=== PATIENT | female | born 1985 | race Caucasian/White ===

== ENCOUNTER 2024-10-03 13:28 | Outpatient (AMB) | payer OTHER, SELFPAY ==
--- NOTE | 2024-10-03 13:36 | MHC.PC.OV ---
Vital Signs 10/03/24 13:37 Height 5 ft 8.5 in Weight 152 lb 2 oz BMI 22.8 BP 120/76 Blood Pressure Location Lt brachial Position Sitting Pulse 68 Pulse Source Pulse Oximeter Temp 97.3 F Temp Source Temporal Artery Scan Pulse Oximetry (%) 99 Oxygen Delivery Method Room Air Intake Visit Reasons: establish care Intake Note: Patient is a new patient here to establish care for ADHD, Anxiety, Seasonal allergies. Transferring care from Dr Viviane De Los Santos. Medical records have been requested and have not received. Requesting for referral to [facility], Allergies and podiatry (due to ingrown toe nail). Also requesting for full blood work order. Sunglass Clip Attacher Required: No Turbogenerator Operator: Not Required per policy Accompanied by: Self / Same As Patient Allergies Seasonal Allergies Allergy (Intermediate, Verified 10/03/24 13:43) congestion Medication List - Last Reconciled 10/03/24 by Halle Grimaldo PA-C No Known Home Meds Tobacco use date assessed: 10/03/24 Dental Screening Dental Screen Date: 10/03/24 Did you have a dental visit in the last 12 months?: Yes Did you have a dental problem in the last 6 months where you did not have access to dental care?: No Was dental information given to patient?: Patient has dentist HPI establish care HPI Details 38-year-old female coming to the office with the 1st time. Presenting with symptoms of seasonal allergic rhinitis. She reports experiencing worsening allergy symptoms due to high pollen counts, with previous medications causing nausea. The patient is also experiencing fatigue. Concurrently, she expresses concern about anxiety and ADHD, although she is hesitant to restart previously used stimulant medications that caused gastrointestinal distress and lethargy post-use. The patient notes previous surgery for ingrown toenails and seeks evaluation due to recent mild discomfort. She has a history of abnormal moles and a family history of cancer, prompting ongoing dermatological surveillance. colonoscopy last year for hemorrhoids and did have polyps and repeat in 5 years. She has a appointment coming up for Pap smears with manager in training [facility] Surgical History (Updated 10/03/24 @ 13:46 by HELLEN Antonio) No pertinent past surgical history Family History (Updated 10/03/24 @ 14:12 by Halle Grimaldo PA-C) Paternal Grandfather Cancer Other Mental health disorder Substance use disorder Social History (Updated 10/03/24 @ 13:47 by HELLEN Antonio) Housing: House Alcohol intake: current Alcohol intake frequency: a few times a month Patient Tobacco Use Status: Never used Tobacco e-Cigarette/Vaping Use: Never Used Second Hand Smoke Exposure: No service: No 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 1. Little interest or pleasure in doing things: not at all 2. Feeling down, depressed, or hopeless: not at all 3. Trouble falling or staying asleep, or sleeping too much: several days 4. Feeling tired or having little energy: nearly every day 5. Poor appetite or overeating: several days 6. Feeling bad about yourself - or that you are a failure or have let yourself or your family down: not at all 7. Trouble concentrating on things, such as reading the newspaper or watching television: more than half the days 8. Moving or speaking so slowly that other people could have noticed. Or the opposite - being so fidgety or restless that you have been moving around a lot more than usual: not at all 9. Thoughts that you would be better off or of hurting yourself in some way: not at all Total score: 7 Depression Screening Interpretation: Positive Depression Screening Follow-up: Declines treatment Depression Screening Done: Yes Source: Developed by Drs. Dennis Cotton, Laura Kang, Elijah Cox and colleagues, with an educational zunilda from [employer]. Thrive Questionnaire Date Thrive assessed: 10/03/24 I am a: Patient What is your living situation today?: I have a steady place to live Within the past 12 months, did the food you bought not last and you didn't have the money to get more?: Never true Within the past 12 months, did you worry whether your food would run out before you got money to buy more?: Never true Do you have trouble paying for medicines?: No Do you have trouble getting transportation to medical appointments?: No Do you have trouble paying your heating and electricity bill?: No Do you have trouble taking care of your child, family member or friend?: No Do you have trouble with day-to-day activities such as bathing, preparing meals, shopping, managing finances, etc.?: No Are you currently unemployed and looking for a job?: No Are you interested in more education?: No Please select the resources that you would like help with: None Currently or been in a relationship where the following occur: No concerns reported THRIVE Score: 0 AUDIT C Alcohol Use Questionnaire (AUDIT-C) 1. How often do you have a drink containing alcohol?: 2-3 times a week 2. How many drinks containing alcohol do you have on a typical day when you are drinking?: 1 or 2 3. How often do you have six or more drinks on one occasion?: Never Total Score: 3 MADISON-7 AMB Questionnaire MADISON-7 Date MADISON - 7 assessed: 10/03/24 Feeling nervous, anxious, or on edge: 2 = More than half the days Not being able to stop or control worryin = Several days Worrying too much about different things: 1 = Several days Trouble relaxin = Several days Being so restless that it is hard to sit still: 0 = Not at all Becoming easily annoyed or irritable: 1 = Several days Feeling afraid as if something awful might happen: 0 = Not at all Total MADISON-7 score (0-4 normal; 5-9 mild; 10-14 moderate; 15-21 severe): 6 Source: Developed by Drs. Dennis Cotton, Laura Kang, Elijah Cox and colleagues, with an educational zunilda from [employer]. MADISON-7 Assessment Billing MADISON-7 Assessment Tool: MADISON-7 Assessment 46524 Review of Systems Const Denies body aches, Denies chills, Denies fever(s), Denies headache(s) and Denies poor appetite Eyes Reports no additional complaints ENT Denies dysphagia, Denies dizziness, Denies headache(s) and Denies odynophagia Card Denies chest pain, Denies syncope, Denies edema, Denies irregular heart rhythm, Denies lightheadedness and Denies dyspnea Resp Denies cough and Denies dyspnea GI Denies abdominal pain, Denies constipation, Denies dysphagia, Denies diarrhea, Denies nausea, Denies odynophagia and Denies vomiting Reports no additional complaints Musc Reports no additional complaints and Denies abnormal gait Skin/Breast Reports system reviewed and no additional complaints, except as documented Neuro Denies abnormal gait, Denies dizziness, Denies syncope and Denies headache(s) Psych Reports no additional complaints Physical exam (Primary Care) Vital Signs: Last Vital Signs Temp 97.3 F 10/03/24 13:37 Pulse 68 10/03/24 13:37 BP 120/76 10/03/24 13:37 Pulse Ox 99 10/03/24 13:37 Oxygen Delivery Method Room Air 10/03/24 13:37 BMI result Body Mass Index 22.8 Tobacco/Smoking Status: Tobacco use Status Tobacco use date assessed 10/03/24 10/03/24 13:42 Patient Tobacco Use Status Never used Tobacco 10/03/24 13:47 e-Cigarette/Vaping Use Never Used 10/03/24 13:47 PHQ-9: PHQ-9 Score PHQ-9: Total score 7 10/03/24 14:01 Depression Screening Interpretation: Positive Depression Screening Follow-up: Declines treatment Thrive Assessment: Date of Thrive Assessment Date Thrive assessed 10/03/24 10/03/24 13:42 Currently or been in a relationship where the following occur: No concerns reported Const General: cooperative, healthy appearing, comfortable and no acute distress Orientation/consciousness: patient oriented x3 HENMT Head: Yes normocephalic Ears: hearing grossly normal bilaterally General nose exam: Normal external nose present Eyes General: appearance normal, both eyes and all related structures Conjunctivae: conjunctivae normal Neck Neck: Yes full ROM and Yes no lymphadenopathy Resp Effort & Inspection: normal respiratory effort Auscultation: clear to auscultation bilaterally, no crackles, no rales, no rhonchi and no wheezes Cardio Rate: regular rate Rhythm: regular rhythm Skin Other: Nailbed deformity left great toe General skin exam: no rashes or lesions noted Neuro General: patient oriented x3 Gait exam (Neuro): Normal gait present Extrem General: Yes normal to inspection, Yes full ROM and No edema Psych Affect: normal affect Attitude: cooperative Insight: Good insight present (Psych) Judgement: Good judgement present (Psych) Coding Level of Care Code New Pt Level 4 (54490) Diagnoses Anxiety F41.9 ADHD F90.9 Seasonal allergies J30.2 Fatigue R53.83 Ingrown toenail L60.0 Atypical nevi D22.9 Additional Codes MADISON-7 Assessment Billing - MADISON-7 Assessment Tool: MADISON-7 Assessment 94094 ([id number]) Assessment & Plan Assessment & Plan (1) Anxiety: Code(s): F41.9 - Anxiety disorder, unspecified Category: Medical Plan: Patient is declining medical management at this time. She is seeing a family counselor with her and is declining personal counseling at this time. Advised patient to reach out if this should change. (2) ADHD: Code(s): F90.9 - Attention-deficit hyperactivity disorder, unspecified type Category: Medical Plan: Previously having been diagnosed with ADHD and treated with stimulant medication. She did not like the side effects of the stimulant medication is interested in trying nonstimulant option. Plan to start on Strattera at 40 mg and follow up in 2 months. Referral was also placed to outpatient psych clinic today. (3) Seasonal allergies: Code(s): J30.2 - Other seasonal allergic rhinitis Category: Medical Plan: Recommend the use of Claritin, saline nasal rinse and Flonase. (4) Fatigue: Code(s): R53.83 - Other fatigue Category: Medical Plan: Patient having worsening fatigue over the last several years since the of her children. Plan to obtain blood work to look for underlying cause. Denying any issues with sleeping or waking up short of breath or coughing. (5) Ingrown toenail: Code(s): L60.0 - Ingrowing nail Category: Medical Plan: Patient having history of ingrown toenail left great toe. Recommended podiatry referral and referral was placed today (6) Atypical nevi: Code(s): D22.9 - Melanocytic nevi, unspecified Category: Medical Plan: Patient having multiple atypical nevi previously being followed by Dermatology and in need of new provider. Referral was placed to Dermatology today. Plan I recommended [id number] Claritin for managing the patient's seasonal allergic rhinitis, favoring it over Zyrtec due to a history of nausea. For her anxiety and ADHD symptoms, I suggested atomoxetine (Strattera) as a non-stimulant alternative to avoid previous adverse effects from stimulants. I made referrals to dermatology for skin surveillance and to podiatry for her toenail concerns. I advised comprehensive blood work to address fatigue concerns, evaluating potential hormonal elements and general health. The patient is to follow up in two months for a comprehensive review if labs reveal specific concerns. This note was constructed using voice recognition software. While every effort has been made to ensure accuracy and rigging foreman, still areas may have been included sometimes these areas may affect the content or meeting of the given symptoms. Total time spent caring for the patient today was 30 minutes. This includes time spent before the visit reviewing the chart, time spent during the visit, and time spent after the visit and documentation. Patient was informed and verbally consented to the use of an ambient scribe for clinic note documentation during this visit. Orders: Orders Complete Blood Count Auto Diff Today Z00.00 - Encounter for general adult medical examination without abnormal findings Comprehensive Met. Panel Today Z00.00 - Encounter for general adult medical examination without abnormal findings Vitamin B12 and Folate Today Z00.00 - Encounter for general adult medical examination without abnormal findings Erythrocyte Sedimentation Rate Today R53.83 - Other fatigue Lipid Panel Today Z13.220 - Encounter for screening for lipoid disorders TSH reflex Free T4 Today Z00.00 - Encounter for general adult medical examination without abnormal findings Free T4 (Free Thyroxine) Today Z00.00 - Encounter for general adult medical examination without abnormal findings Vitamin D 25-OH Total Today Z00.00 - Encounter for general adult medical examination without abnormal findings WAQAS Reflex Titer and Pattern Today R53.83 - Other fatigue C Reactive Protein Today R53.83 - Other fatigue Referrals Podiatry Referral L60.0 - Ingrowing nail Dermatology Referral D22.9 - Melanocytic nevi, unspecified Psychiatry Outpatient Consultation Service F41.9 - Anxiety disorder, unspecified, F90.9 - Attention-deficit hyperactivity disorder, unspecified type Optometry Referral Z00.00 - Encounter for general adult medical examination without abnormal findings Medications: New atomoxetine 40 mg PO DAILY 30 caps 1RF
[2024-10-03 13:37] VITALS: BP 120/76; PULSE 68; TEMP 36.3; O2SAT 99; BMI 22.8
--- OUTSIDE RECORDS SUMMARY | 2024-10-03 14:44 | XMS_ITS | Data Portability ---
Author Organization [place] - [facility], [place] - [facility] - IP Address [address] [place] [address] Assessment Encounter Date Assessment Date Assessment LastModified by Organization Details LastModified Time 10/11/2023 10/11/2023 Alyssa is a 37-year-old female with intermittent painful bowel movements, throbbing spasm of anus, and rectal bleeding. -I suspect she has had intermittent anal fissures and possibly a component of pelvic floor dysfunction causing anal spasm -Sending prescription for topical nifedipine/lidoc vero compounded ointment for anal spasm and intermittent anal fissures. -Recommend powdered fiber bulking with Metamucil and as needed MiraLAX to provide better bowel function -Recommend colonoscopy for rectal bleeding. Etiology of colon polyps and CRC discussed using diagrams. Literature provided. Medical decision made today to proceed with colonoscopy. Risks of colonoscopy including perforation, bleeding, missed lesions, incomplete removal of lesions, inadequate bowel prep, and infection were discussed with the patient. Alternatives were also discussed with the patient. Procedure discussed in detail. Diagrams drawn. Literature provided. Bowel preparation instructions given. Bowel preparation medications sent to pharmacy. -Return to office in 6 weeks for reevaluation of symptoms Shaheed Abdullahi MD Board Certified Colon & Rectal Surgeon [facility] - [facility] T: [phone] F: [phone] [employer] Portions of the record may have been created with voice recognition software. Occasional wrong word or gadzv-q-fezl substitutions may have occurred due to the inherent limitations of voice recognition software. Read the chart carefully and recognize, using context, where substitutions have occurred. [email or web address] Not available 10/11/2023 16:00:46 Plan of Treatment Reminders Order Date Submit Date Provider Last Modified By Organization Details Last Modified Time Details Appointments None recorded. Lab None recorded. Referral None recorded. Procedures None recorded. Surgeries colonoscopy (SURG) 2023 [facility] Records Department, [address], [place], [address], 08:14:44 Imaging None recorded. Medication Orders Nifedipine 0.4% Lidocaine 5 % 2023 [facility], [address] [place] [address], [place], [address], 16:01:53 Miralax 17 gram/dose oral powder 2023 [facility] #30 (453) Olimpia, [address], [place], [address], 4 16:01:52 Dulcolax (bisacodyl) 5 mg tablet,georgette yed release 2023 [facility] #30 (080) Olimpia, [address], [place], [address], 4 16:01:52 Patient TargetsNo targets recorded. Patient InstructionsNo instructions recorded. Reason for Referral None Reported. Results Created Date Observation Date Name Description Value Unit Range Abnormal Flag Note LastModifiedBy Organization Detail LastModifiedTime Result Notes None recorded. Procedures Surgical History Date Name Laterality Status Provider Name and Address Organization Details Recorded Time 10/15/19 24 COLONOSCOPY (SURG) completed Leti Kidd [facility] 10/21/2023 11:08:25 10/11/19 24 Anoscopy completed Shaheed Abdullahi MD [address] [facility],[address], [address], [facility] 10/11/2023 15:40:18 Imaging Results None recorded. Procedure Notes None recorded. Medical Equipment None Reported. Medications Name Sig Start Date Stop Date Status Note LastModified by Organization Details LastModified Time Nifedipine 0.4% Lidocaine 5 % Apply to anal canal 2-3 times per day 2023 active Not Available Not Available Not Avai lable cephalexin 250 mg capsule TAKE 1 CAPSULE BY MOUTH THREE TIMES DAILY FOR 5 DAYS 10/10 completed Not Available Not Available Not Available Anucort-HC 25 mg suppository active Not Available Not Available Not Available penicillin V potassium 500 mg tablet TAKE ONE (1) TABLET BY MOUTH 2 TIMES PER DAY FOR 10 DAYS. 10/10 completed Not Available Not Available Not Available valacyclovi r 500 mg tablet TAKE 1 TABLET BY MOUTH TWICE DAILY UNTIL DELIVERY. active Not Available Not Available No t Available lidocaine-p rilocaine 2.5 %-2.5 % topical cream active Not Available Not Available Not Available amoxicillin 875 mg tablet TAKE 1 TABLET BY MOUTH EVERY 12 HOURS FOR 10 DAYS 10/10 completed Not Available Not Available Not Available mupirocin 2 % topical ointment APPLY TOPICALLY TO THE AFFECTED AREA THREE TIMES DAILY FOR 10 DAYS active Not Available Not Available No t Available clobetasol 0.05 % topical ointment APPLY A THIN LAYER TO THE AFFECTED AREA(S) BY TOPICAL ROUTE 2 TIMES PER WEEK. active Not Available Not Available No t Available polyethylen e glycol 3350 17 gram/dose oral powder MIX ENTIRE BOTTLE INTO 64 OUNCES OF CLEAR LIQUIDS. DRINK THE EVENING BEFORE COLONOSCO PY DIRECTED. active Not Available Not Available No t Available ondansetron 4 mg disintegrat ing tablet 10/10 completed Not Available Not Available Not Available Dulcolax (bisacodyl) 5 mg tablet,georgette yed release Take 4 tablets by oral route as directed. 2023 active Not Available Not Available Not Avai lable escitalopra m 10 mg tablet TAKE ONE (1) TABLET BY MOUTH EVERY DAY. active Not Available Not Available No t Available Vitals Date Recorded Body height Body mass index (BMI) Body weight Heart rate Systolic blood pressure Diastolic blood pressure Provider Name and Address Organization Details Last Updated DateTime 4 175.26 cm 22.2 kg/m2 49586.8 6 g 74 /min 132 mm[Hg] 75 mm[Hg] Leti Kidd [facility] 4 15:18:25 Social History None recorded. Functional Status None recorded. Mental Status None recorded. Family History Nothing Reported. Medical History No medical history recorded. Gynecological HistoryNo gynecological history recorded. Obstetrics History GPAL:G 0 P 0 0 0 0 Past Encounters Encounter ID Performer Location Encounter Start Date Encounter Closed Date Diagnosis/Indication Diagnosis SNOMED-CT Code Diagnosis ICD10 Code Diagnosis Note [id number] Shaheed Abdullahi MD [facility] [address] [place] [address] 10/11/2023 14:51:42 10/11/2023 16:03:45 Rectal hemorrhage 08317071 K62.5 Painful spasm of anus 62 359408 K59.4 Health Concerns Section Related Observation LastModified by Organization Detai ls LastModified Time None Recorded Concern Status LastModified by Organization Details LastModified Time None Recorded Advance Directives Directive None Recorded Payers Encounter Date Sequence Insurance Name Policy Number Policy Johnson Covered Member ID Johnson Member ID Guarantor Name 10/11/2023 1 [place] [id number] Christopher Gibbs [id number] Alyssa Buddy Gibbs Notes Date Note Type Note Provider Name and Address Organization Details Recorded Time 10/11/2023 text/html Alyssa is a 37-year-old female being seen in self-referral for hemorrhoids.. She reports hemorrhoidal symptoms for 7 years since the delivery of her first child. She had significant hemorrhoids at the time of and delivery and again with her second child. She reports painful bowel movements when constipated with associated rectal bleeding. She drinks lots of coffee now so her bowel movements are semiformed and much less painful. Currently her most frustrating symptom is a throbbing pain that wakes her from sleep in the anus causing her to sit on the toilet to relieve the pressure . Never had a colonoscopy. No family history of colorectal cancer or colon polyps. Shaheed Abdullahi MD [address] [facility],[place] [address], [place], [address], [facility] 10/11/2023 16:02:14 OBGyn Episode No OBEpisode recorded.
== END 2024-10-03 14:22 | disposition home or self-care (01) ==
LOC: HO.HMCH 13:29
DX: F41.9 Anxiety disorder, unspecified (principal); F90.9 Attention-deficit hyperactivity disorder, unspecified type; J30.2 Other seasonal allergic rhinitis; R53.83 Other fatigue; L60.0 Ingrowing nail; D22.9 Melanocytic nevi, unspecified

== ENCOUNTER → 2024-10-03 13:28 | Outpatient (BNVA) | payer OTHER, SELFPAY | DX: J30.2 Other seasonal allergic rhinitis (principal); F41.9 Anxiety disorder, unspecified; F90.9 Attention-deficit hyperactivity disorder, unspecified type; R53.83 Other fatigue; L60.0 Ingrowing nail; D22.9 Melanocytic nevi, unspecified | CPT/HCPCS: 96127; 99202 ==

== ENCOUNTER 2024-10-17 08:52 | Outpatient (REF) | payer OTHER, SELFPAY ==
[2024-10-17 09:13] LABS: MANUAL DIFF FLAG NO
--- OUTSIDE RECORDS SUMMARY | 2024-10-17 09:15 | XMS_ITS | Continuity of Care Document ---
Author Organization [facility] Address [address] [place] [address] Phone Care Team Providers Care Bailing Machine Operator Name Role Phone Unavailable Unavailable Unavailable Advance Directives Directive Yes / No Effective Date File Name No Information Encounters Encounter Description Practice Location Reason(s) For Visit Diagnoses Date Provider Providers Copied on Encounter [facility], [address], [place], [place], [id number], [place] tel:[phone] [facility] No Information Jul-0 201 9 No Information Referring Provider: EDDIE FRANK, [address], [place], [address]. tel:[phone] Family History Family Member Type Diagnosis Age At Onset No Information Payers Payer name Insurance type Covered constitution party ID Authoriza titiffany(s) [facility] PPO [id number] Social History Type Description Quantity Date Captured Comments Sex Female Smoking Status No Information Chief Complaint And Reason For Visit No Information History Of Present Illness Encounter Date Complaint History Of Prese nt Illness No Information Instructions Date Instruction Additional Infor mation No Information Assessments Type Assessment Date No Information
--- OUTSIDE RECORDS SUMMARY | 2024-10-17 09:15 | XMS_ITS | Clinical Summary ---
Author Organization [facility] Address [address] [place] [address] Phone Care Team Providers Care Esthetician Permanent Makeup Artist Name Role Phone Halle Grimaldo Primary Care Provider Social History Tobacco Use Types Packs/Day Years Used Date Smoking Tobacco: Never Assessed Comments Unknown Sex and Gender Information Value Date Recorded Sex Assigned at Not on file Legal Sex Female 7:36 AM EDT Gender Identity Not on file Sexual Orientation Not on file Plan of Treatment Upcoming Encounters Date Type Department Care Team ([facility] Contact Info) Description 11/20/2024 9:15 AM EDT Consult Orthopedic Surgery - [place] [address] [id number] Francois Driver, WILDER [address] [address] Health Maintenance Due Date Last Done Comments DTaP,Tdap,and Td Vaccines (1 - Tdap) 2005 Hepatitis B Vaccines (1 of 3 - 19+ 3-dose series) 2005 Cervical Cancer Screening: P ap Smear 10/28/2007 COVID-19 Vaccine ( - 2023-2 5 season) 2024 Depression Screening 10/12/2024 HIV Screening 10/12/2024 Hepatitis C Screening 10/12/2024 Social Influencers of Health Screening 10/12/2024 Influenza Vaccine (Season Ended) 2025 HIB Vaccines Aged Out No longer eligi ble based on patient's age to complete this topic HPV Vaccines Aged Out No longer eligi ble based on patient's age to complete this topic Hepatitis A Vaccines Aged Out No long er eligible based on patient's age to complete this topic IPV Vaccines Aged Out No longer eligi ble based on patient's age to complete this topic MMR Vaccines Aged Out No longer eligi ble based on patient's age to complete this topic Meningococcal ACWY Vaccine Aged Out N o longer eligible based on patient's age to complete this topic Meningococcal B Vaccine Aged Out No l onger eligible based on patient's age to complete this topic Pneumococcal Vaccine: Pediat rics (0 to 5 Years) and At-Risk Patients (6 to 64 Years) Aged Out No longer eligible b ased on patient's age to complete this topic RSV Immunization Patients Un wilian 20 months Aged Out No longer eligible b ased on patient's age to complete this topic Varicella Vaccines Aged Out No longer eligible based on patient's age to complete this topic Insurance [facility] Care Teams Esthetician Permanent Makeup Artist Relationship Specialty Start Date End Date Halle Grimaldo PA [address] [place] [address], [address] [place] [address] PCP - General 10/12/24
--- OUTSIDE RECORDS SUMMARY | 2024-10-17 09:16 | XMS_ITS | Data Portability ---
Author Organization [place] - [facility], [place] - [facility] - IP Address [address] [place] [address] Assessment Encounter Date Assessment Date Assessment LastModified [...] MD Board Certified Colon & Rectal Surgeon [facility] - [employer] T: [phone] F: [phone] [email or web address] Portions of the record may have been created with voice recognition software. Occasional wrong word or cnoly-m-bvaw substitutions may have occurred due to the inherent limitations of voice recognition software. Read the chart carefully and recognize, using context, where substitutions have occurred. [email or web address] Not available 10/11/2023 16:00:46 Plan of Treatment Reminders Order Date Submit Date Provider Last Modified By Organization Details Last Modified Time Details Appointments None recorded. Lab None recorded. Referral None recorded. Procedures None recorded. Surgeries colonoscopy (SURG) 2023 [facility] Records Department, [address], [place], [address], 08:14:44 Imaging None recorded. Medication Orders Nifedipine 0.4% Lidocaine 5 % 2023 [facility], [address] [place] [address], [place], [address], 16:01:53 Miralax 17 gram/dose oral powder 2023 [facility] #30 (838) Olimpia, [address], [place], [address], 4 16:01:52 Dulcolax (bisacodyl) 5 mg tablet,georgette yed release 2023 [facility] #30 (379) Olimpia, [address], [place], [address], 4 16:01:52 Patient TargetsNo targets recorded. Patient InstructionsNo instructions recorded. Reason for Referral None Reported. Results Created Date Observation Date Name Description Value Unit Range Abnormal Flag Note LastModifiedBy Organization Detail LastModifiedTime Result Notes None recorded. Procedures Surgical History Date Name Laterality Status Provider Name and Address Organization Details Recorded Time 10/15/19 24 COLONOSCOPY (SURG) completed Leti Kidd [facility] 10/21/2023 11:08:25 10/11/19 24 Anoscopy completed Shaheed Abdullahi MD [address] [facility],[address], [address], [facility] 10/11/2023 15:40:18 [...] Updated DateTime 4 175.26 cm 22.2 kg/m2 61501.8 6 g 74 /min 132 mm[Hg] 75 mm[Hg] Leti Kidd [facility] 4 15:18:25 Social History None recorded. Functional Status None recorded. Mental Status None recorded. Family History Nothing Reported. Medical History No medical history recorded. Gynecological HistoryNo gynecological history recorded. Obstetrics History GPAL:G 0 P 0 0 0 0 Past Encounters Encounter ID Performer Location Encounter Start Date Encounter Closed Date Diagnosis/Indication Diagnosis SNOMED-CT Code Diagnosis ICD10 Code Diagnosis Note [id number] Shaheed Abdullahi MD [facility] [address] [place] [address] 10/11/2023 14:51:42 10/11/2023 16:03:45 Rectal hemorrhage 87903630 K62.5 Painful spasm of anus 62 517558 K59.4 Health Concerns Section Related Observation LastModified by Organization Detai ls LastModified Time None Recorded Concern Status LastModified by Organization Details LastModified Time None Recorded Advance Directives Directive None Recorded Payers Insurance Date Sequence Insurance Name Policy Number Policy Johnson Covered Member ID Johnson Member ID Guarantor Name 09/28/2023 1 [place] [employer] [place]ANTAGE (HMO) [id number] Christopher Gibbs [id number] Alyssa Jeanler 12/23/2023 1 [place] [id number] Christopher Gibbs [id number] Alyssa Gibbs Notes Date Note Type Note Provider [...] Abdullahi MD [address] [facility],[place] [address], [place], [address], [facility] 10/11/2023 16:02:14 OBGyn Episode No OBEpisode recorded.
[2024-10-17 09:19] LABS: Basophils Percent Auto 0.7 % (0-2); Eosinophils Absolute Auto 0.1 X10*3/uL (0.0-0.4); Eosinophils Percent Auto 2.4 % (0-4); Hematocrit 39.3 % (37.0-47.0); Hemoglobin 13.2 g/dl (12.0-16.0); Imm Gran Abs Auto 0.01 X10*3/uL (0.00-0.03); Imm Gran Pct Auto 0.2 % (0.0-0.4); Lymphocytes Absolute Auto 2.1 X10*3/uL (1.2-4.9); Lymphocytes Percent Auto 36.4 % (20-40); Mean Corpuscular HGB Conc 33.6 g/dl (31.0-35.0); Mean Corpuscular Hemoglobin 29.7 pg (27.0-33.0); Mean Corpuscular Volume 88.3 fL (80.0-98.0); Mean Platelet Volume 10.3 fL (9.4-12.3); Monocytes Absolute Auto 0.4 X10*3/uL (0.1-1.2); Monocytes Percent Auto 6.5 % (2-11); Neutrophils Absolute Auto 3.1 x10*3/uL (2.0-8.3); Neutrophils Percent Auto 53.8 % (45-73); Platelet Count 200 X10*3/uL (160-400); Red Blood Count 4.45 X10*6/uL (4.20-5.50); Red Cell Distribution Width 13.5 % (11.0-16.0); White Blood Count 5.7 X10*3/uL (4.8-10.8)
[2024-10-17 10:03] LABS: Erythrocyte Sedimentation Rate 2 MM/HR (0-20)
[2024-10-17 10:22] LABS: Alanine Aminotransferase 15 U/L (0-31); Albumin Level 4.3 g/dL (3.5-5.0); Alkaline Phosphatase 38 U/L (39-117); Anion Gap 11 (12-20); Aspartate Amino Transferase 20 U/L (5-31); Bilirubin Total 0.4 mg/dL (0.0-1.0); Blood Urea Nitrogen 14 mg/dL (9-16); C Reactive Protein < 0.04 mg/dL (< or = 0.50); Calcium 9.1 mg/dL (8.4-10.2); Carbon Dioxide 24 mmol/L (22-29); Chloride 110 mmol/L (96-108); Cholesterol 236 mg/dL (<200); Estimated Glomerular Filt Rate > 60; Glucose Random 91 mg/dL (60-115); HDL Cholesterol 65 mg/dL (>40); LDL Cholesterol Calculated 156 mg/dL (<100); Potassium 4.7 mmol/L (3.3-5.1); Sodium 140 mmol/L (135-145); TSH reflex Free T4 2.24 uIU/mL (0.32-4.0); Total Protein 6.9 g/dL (6.5-8.0); Triglycerides 77 mg/dL (<150); Vitamin D 25-OH Total 19.9 ng/mL (>30)
[2024-10-17 10:42] LABS: Folate 12.3 ng/mL (> or = 4.0); Vitamin B12 438 pg/mL (200-900)
[2024-10-18 20:54] LABS: Transglutaminase Ab IgG <1.0 U/mL
[2024-10-19 14:53] LABS: Anti Nuclear Antibody Screen NEGATIVE (NEGATIVE)
== END 2024-10-17 08:53 | disposition home or self-care (01) ==
LOC: HO.LAB 08:52
DX: Z00.00 Encounter for general adult medical examination without abnormal findings (principal); R53.83 Other fatigue; Z13.220 Encounter for screening for lipoid disorders; R10.9 Unspecified abdominal pain
CPT/HCPCS: 36415; 80053; 80061; 82306; 82607; 82746; 84439; 84443; 85025; 85652; 86038; 86140; 86364

== ENCOUNTER 2024-12-05 15:33 | Outpatient (AMB) | payer OTHER, SELFPAY ==
[2024-12-05 15:39] VITALS: BP 116/82; PULSE 76; RESP 16; TEMP 36.2; O2SAT 99; BMI 23.3
--- NOTE | 2024-12-05 15:39 | A.OFFPC_ITS ---
Vital Signs 12/05/24 15:39 Height 5 ft 8.5 in Weight 155 lb 6 oz BMI 23.3 BP 116/82 Blood Pressure Location Lt brachial Position Sitting Respiration 16 Pulse 76 Pulse Source Pulse Oximeter Temp 97.1 F Temp Source Temporal Artery Scan Pulse Oximetry (%) 99 Oxygen Delivery Method Room Air Intake Visit Reasons: pe Allergies Seasonal Allergies Allergy (Intermediate, Verified 12/05/24 15:55) congestion Medication List - Last Reconciled 12/05/24 by Halle Grimaldo PA-C No Known Home Meds Tobacco use date assessed: 12/05/24 Dental Screening Dental Screen Date: 12/05/24 Did you have a dental visit in the last 12 months?: Yes Did you have a dental problem in the last 6 months where you did not have access to dental care?: No Was dental information given to patient?: Patient has dentist HPI pe HPI Details 39 year old female with past medical his tory of ADHD, anxiety and seasonal allergies last seen 09/2024 coming in for annual exam. Presenting for a follow-up visit and annual wellness examination. Hypercholesterolemia was identified in recent blood work with a level of 156 mg/dL, above the desired level of less than 130 mg/dL. ADHD was previously diagnosed, and the patient was prescribed medication but has not yet started it. Seasonal allergies have been managed with [id number] medications like Zyrtec, with symptoms worsening during spring. The patient reports heavy menstrual bleeding, and an ultrasound was recommended by her telephone sales agent to investigate a possible endometrial polyp. Acid reflux symptoms include bloating and discomfort, possibly related to dietary habits. Ear irritation is noted, likely due to scratching, with no wax buildup observed. 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 1. Little interest or pleasure in doing things: not at all 2. Feeling down, depressed, or hopeless: not at all 3. Trouble falling or staying asleep, or sleeping too much: several days 4. Feeling tired or having little energy: nearly every day 5. Poor appetite or overeating: several days 6. Feeling bad about yourself - or that you are a failure or have let yourself or your family down: not at all 7. Trouble concentrating on things, such as reading the newspaper or watching television: more than half the days 8. Moving or speaking so slowly that other people could have noticed. Or the opposite - being so fidgety or restless that you have been moving around a lot more than usual: not at all 9. Thoughts that you would be better off or of hurting yourself in some way: not at all Total score: 7 Depression Screening Interpretation: Positive Depression Screening Follow-up: Declines treatment Depression Screening Done: Yes Source: Developed by Drs. Dennis Cotton, Laura Kang, Elijah Cox and colleagues, with an educational zunilda from [employer]. Thrive Questionnaire Date Thrive assessed: 10/03/24 I am a: Patient What is your living situation today?: I have a steady place to live Within the past 12 months, did the food you bought not last and you didn't have the money to get more?: Never true Within the past 12 months, did you worry whether your food would run out before you got money to buy more?: Never true Do you have trouble paying for medicines?: No Do you have trouble getting transportation to medical appointments?: No Do you have trouble paying your heating and electricity bill?: No Do you have trouble taking care of your child, family member or friend?: No Do you have trouble with day-to-day activities such as bathing, preparing meals, shopping, managing finances, etc.?: No Are you currently unemployed and looking for a job?: No Are you interested in more education?: No Please select the resources that you would like help with: None Currently or been in a relationship where the following occur: No concerns reported THRIVE Score: 0 AUDIT C Alcohol Use Questionnaire (AUDIT-C) 1. How often do you have a drink containing alcohol?: 2-3 times a week 2. How many drinks containing alcohol do you have on a typical day when you are drinking?: 1 or 2 3. How often do you have six or more drinks on one occasion?: Never Total Score: 3 MADISON-7 AMB Questionnaire MADISON-7 Date MADISON - 7 assessed: 10/03/24 Feeling nervous, anxious, or on edge: 2 = More than half the days Not being able to stop or control worryin = Several days Worrying too much about different things: 1 = Several days Trouble relaxin = Several days Being so restless that it is hard to sit still: 0 = Not at all Becoming easily annoyed or irritable: 1 = Several days Feeling afraid as if something awful might happen: 0 = Not at all Total MADISON-7 score (0-4 normal; 5-9 mild; 10-14 moderate; 15-21 severe): 6 Source: Developed by Drs. Dennis Cotton, Laura Kang, Elijah Cox and colleagues, with an educational zunilda from [employer]. MADISON-7 Assessment Billing MADISON-7 Assessment Tool: MADISON-7 Assessment 86050 Review of Systems Const Denies body aches, Denies fatigue, Denies fever(s), Denies frequent falls, Denies headache(s) and Denies weakness Eyes Reports no additional complaints and Denies change in vision ENT Denies dysphagia, Denies dizziness, Denies facial pain, Denies headache(s), Denies nasal congestion and Denies odynophagia Card Denies chest pain, Denies syncope, Denies irregular heart rhythm, Denies leg edema, Denies lightheadedness and Denies dyspnea Resp Denies cough and Denies dyspnea GI Denies abdominal pain, Denies constipation, Denies dysphagia, Denies dyspepsia, Denies diarrhea, Denies nausea, Denies odynophagia and Denies vomiting Denies urinary frequency, Denies dysuria, Denies urinary hesitancy and Denies urinary urgency Musc Denies back pain and Denies myalgias Skin/Breast Reports system reviewed and no additional complaints, except as documented Neuro Denies dizziness, Denies syncope, Denies frequent falls, Denies headache(s) and Denies weakness Psych Reports no additional complaints Endo Denies fatigue Physical exam (Primary Care) Vital Signs: Last Vital Signs Temp 97.1 F 12/05/24 15:39 Pulse 76 12/05/24 15:39 Resp 16 12/05/24 15:39 BP 116/82 12/05/24 15:39 Pulse Ox 99 12/05/24 15:39 Oxygen Delivery Method Room Air 12/05/24 15:39 BMI result Body Mass Index 23.3 Tobacco/Smoking Status: Tobacco use Status Tobacco use date assessed 12/05/24 12/05/24 15:43 Patient Tobacco Use Status Never used Tobacco 12/05/24 15:43 e-Cigarette/Vaping Use Never Used 12/05/24 15:43 PHQ-9: PHQ-9 Score PHQ-9: Total score 7 12/05/24 15:56 Depression Screening Interpretation: Positive Depression Screening Follow-up: Declines treatment Thrive Assessment: Date of Thrive Assessment Date Thrive assessed 10/03/24 12/05/24 15:43 Currently or been in a relationship where the following occur: No concerns reported Const General: cooperative, healthy appearing, comfortable and no acute distress Orientation/consciousness: patient oriented x3 HENMT Head: Yes normocephalic Ears: hearing grossly normal bilaterally, external ears normal, TM's normal bilaterally and EAC's normal General nose exam: Normal external nose present Face and sinus: Yes normal facial exam and Yes sinuses nontender Mouth: Normal oral and palatal mucosa present and tongue normal Throat: Yes posterior oropharynx normal Eyes General: appearance normal, both eyes and all related structures Conjunctivae: conjunctivae normal Pupils: Equal, round and reactive pupils present EOM: EOMs intact bilaterally and No Nystagmus present Neck Neck: Yes normal visual inspection, Yes full ROM and Yes no lymphadenopathy Chest Chest palpation & inspection: normal inspection of the chest Resp Effort & Inspection: normal respiratory effort Auscultation: clear to auscultation bilaterally, no crackles, no rales, no rh onchi, no wheezes and breath sounds present Cardio Rate: regular rate Rhythm: regular rhythm Peripheral pulses: radial pulses present and dorsalis pedis present GI Inspection: Yes normal to inspection and No Abdominal wall edema Palpation (GI): Soft to palpation, not firm and nontender Auscultation: normal bowel sounds Rectal Exam - Female: deferred General: Yes no CVA tenderness Back/Spine/Pelvis Back: no CVA tenderness Skin General skin exam: no rashes or lesions noted Neuro General: patient oriented x3 Cranial nerves: Yes Equal, round and reactive pupils present, Yes Midline tongue present, Yes Ability to bilaterally elevate shoulders present and No Nystagmus present Gait exam (Neuro): Normal gait present Extrem General: Yes normal to inspection, Yes full ROM, No no pedal edema and No edema Psych Speech and movement: Normal speech and movement present Affect: normal affect Insight: Good insight present (Psych) Judgement: Good judgement present (Psych) Coding Level of Care Code Est Pt Prev Care [id number]([id number]) Diagnoses Annual physical exam Z00.00 ADHD F90.9 Anxiety F41.9 Seasonal allergies J30.2 Ingrown toenail L60.0 Atypical nevi D22.9 Hypercholesterolemia E78.00 GERD (gastroesophageal reflux disease) K21.9 Ear itching L29.9 Additional Codes MADISON-7 Assessment Billing - MADISON-7 Assessment Tool: MADISON-7 Assessment 31686 ([id number]) Assessment & Plan Assessment & Plan (1) Annual physical exam: Code(s): Z00.00 - Encounter for general adult medical examination without abnormal findings Category: Medical Plan: Patient is up-to-date on all recommended routine screenings and vaccinations for her age. She has already completed a colonoscopy in which she will be due in 4 years. Blood work is up-to-date and has been reviewed with the patient today. Healthy diet and regular exercise is encouraged. (2) ADHD: Code(s): F90.9 - Attention-deficit hyperactivity disorder, unspecified type Category: Medical Plan: Previously having been diagnosed with ADHD and treated with stimulant medication. She did not like the side effects of the stimulant medication is interested in trying nonstimulant option. Plan to start on Strattera at 40 mg and follow up in 2 months. Referral was also placed to outpatient psych clinic at last visit. (3) Anxiety: Code(s): F41.9 - Anxiety disorder, unspecified Category: Medical Plan: Patient is declining medical management at this time. She is seeing a family counselor with her and is declining personal counseling at this time. Advised patient to reach out if this should change. (4) Seasonal allergies: Code(s): J30.2 - Other seasonal allergic rhinitis Category: Medical Plan: Recommend the use of Claritin, saline nasal rinse and Flonase. (5) Ingrown toenail: Code(s): L60.0 - Ingrowing nail Category: Medical Plan: Resolved at this time. (6) Atypical nevi: Code(s): D22.9 - Melanocytic nevi, unspecified Category: Medical Plan: Patient having multiple atypical nevi previously being followed by Dermatology and in need of new provider. Referral was placed to Dermatology at last visit. (7) Hypercholesterolemia: Code(s): E78.00 - Pure hypercholesterolemia, unspecified Category: Medical Plan: Avoid foods that are high in cholesterol such as red meat, fried foods, eggs and baked goods. Triglyceride goal of less than 150 and LDL goal of less than 130. (8) GERD (gastroesophageal reflux disease): Code(s): K21.9 - Gastro-esophageal reflux disease without esophagitis Category: Medical Plan: Avoid trigger foods such as citrus, tomato products, soda, caffeine, spicy foods and other foods that may be irritating to your stomach. Avoid laying flat 3-4 hours after eating and elevate the head of the bed 30 degrees to prevent acid from moving into the esophagus. (9) Ear itching: Code(s): L29.9 - Pruritus, unspecified Category: Medical Plan: Plan to trial Dermotic oil twice daily as needed for 1 week advised patient to avoid scratching ear to prevent further irritation. Plan The patient will be advised to manage hypercholesterolemia through dietary modifications, focusing on reducing the intake of fried foods, red meats, and other high-cholesterol items. Exercise will be encouraged to support cardiova scular health and manage cholesterol levels. Follow-up labs will be conducted in three months to assess progress. For ADHD, the patient will be prescribed atomoxetine, with a follow-up in a couple of months to evaluate its effectiveness and any side effects. The patient is encouraged to communicate any concerns or adverse effects experienced with the medication. Seasonal allergies will continue to be managed with kycy-swb-[id number] medications as needed. The patient is advised to use saline rinses to alleviate symptoms without medication side effects. For acid reflux, dietary changes are advised, including avoiding eating close to bedtime and reducing intake of trigger foods. The patient is encouraged to keep a food journal to identify specific triggers. Ear irritation will be managed with steroid ear drops to reduce itching and inflammation. The patient is advised to avoid scratching the affected area to prevent further irritation. This note was constructed using voice recognition software. While every effort has been made to ensure accuracy and bridge inspector, still areas may have been included sometimes these areas may affect the content or meeting of the given symptoms. Total time spent caring for the patient today was 30 minutes. This includes time spent before the visit reviewing the chart, time spent during the visit, and time spent after the visit and documentation. Patient was informed and verbally consented to the use of an ambient scribe for clinic note documentation during this visit. Orders: Orders Lipid Panel 3 Months E78.00 - Pure hypercholesterolemia, unspecified Medications: New fluocinolone acetonide oil 0.01% (DermOtic Oil) 5 drps otic (ear) right BID 20 mL 0RF 7 days Refilled atomoxetine 40 mg PO DAILY 30 caps 1RF
--- OUTSIDE RECORDS SUMMARY | 2024-12-05 16:00 | XMS_ITS | Data Portability ---
Author Organization [facility] as, [id number] Address [address] [address] Care Team Providers Care Shadowgraph Operator Name Role Phone Connie Hamilton Aircraft Structural Design Engineer Margaret Ashley Rater Associate [phone] Idalmis Collazo Primary Care Provider [phone] Assessment No assessment recorded. Plan of Treatment Reminders Order Date Submit Date Provider Name Organization Details Last Modified By Last Modified Time Details Appointments None record ed. Lab pap, LB 2022 09:06: 07 023 JACKELIN PRITCHARD METEOROLOGICAL EQUIPMENT REPAIRER Not available Not Available 10:01:27 Referral None record ed. Procedures None record ed. Surgeries None record ed. Imaging XR, chest 2021 19:32: 38 022 [facility] Use For All [facility] Orders[facility] [address] , [place], [address], Sandy Oneill 20:01:55 MedicationOrders None record ed. VaccineOrders None record ed. Patient TargetsNo targets recorded. Patient Instructions Encounter Date Encounter Id Patient Instructions Last Modified By Organization Details Last Modified Time 05/05/2022 [id number] Nurse note: Med Rx faxed to pharmacy. Patient to follow up as needed. Patient D/C'ed by provider. Thanks! Michael Bowling RN. 05/05/22 1205pm. [email or web address] Not available 05/05/2022 13:05:32 04/09/2022 [id number] pt dcd by ky [email or web address] Not available 15:49:48 Reason for Referral None Reported. Results Created Date Observation Date Name Description Value Unit Range Abnormal Flag Specimen Type Note LastModifiedBy Organization Detail LastModifiedTime 01/28/2001/27/2023 HR HPV panel HPV 35/39/68* negati ve Not Available Lynn Martínez [place] ([facility]) , [address] [place] [address] ,[address] , [place] , [address], [place] , 02/02/2023 10:01:27 01/28/20 23 01/27/2023 HR HPV panel HPV 56/59/66* negati ve Not Available Myah [place] ([facility]) , [address] [place] [address] ,[address] , [place] , [address], [place] , 02/02/2023 10:01:27 01/28/20 23 01/27/2023 HR HPV panel high-risk HPV panel by PCR* negati ve Perfo rmed by real- time PCR using the PraXcell Oncla rity HPV assay . Patie nts who test posit ronen or negat ronen by this assay shoul d be follo wed up in accor dance with the physi steven' s asses sment of patie nt scree sofía, medic al histo ry, other risk facto rs, and profe ssion al guide lines . A negat ronen resul t does not exclu de the possi bilit y of infec tion becau se test resul ts may be affec prerna by speci men colle ction metho ds, patie nt facto rs, stage of infec tion and the prese nce of inter ferin g subst ances . This assay is FDA appro nithya for speci mens colle cted in SureP ath media . This assay perfo rmed on any other inter jazmyn valid ated media type is consi dered a Labor atory Devel oped Test and its perfo rmanc e yann cteri stics deter mined by Myah santos. It has not been clear ed or appro nithya by the [place] Food and Drug Admin katya poole. The FDA has deter mined that such appro linda is not neces robbi provi ded the labor atory maint ains its good stand ing as a clini edmundo labor atory with all cortney tory accre ditin g josué s and verena nuall y demon strat es that its testi ng marina cols and proce dures achie ve a high degre e of thomas tical accur acy. Not Available [facility] [place] ([facility]) , [address] [place] [address] [address] , [place] , [address], [place] , 02/02/2023 10:01:27 01/28/20 23 01/27/2023 HR HPV panel HPV 31* negati ve Not Available [facility] [place] ([facility]) , [address] [place] [address] [address] , [place] , [address], [place] , 02/02/2023 10:01:27 01/28/20 23 01/27/2023 HR HPV panel HPV 45* negati ve Not Available [facility] [place] ([facility]) , [address] [place] [address] [address] , [place] , [address], [place] , 02/02/2023 10:01:27 01/28/20 23 01/27/2023 HR HPV panel HPV 16* negati ve Not Available [facility] [place] ([facility]) , [address] [place] [address] [address] , [place] , [address], [place] , 02/02/2023 10:01:27 01/28/20 23 01/27/2023 HR HPV panel HPV 18* negati ve Not Available [facility] [place] ([facility]) , [address] [place], [place] [address] , [place] , [address], [place] , 02/02/2023 10:01:27 01/28/20 23 01/27/2023 HR HPV panel HPV 52* negati ve Not Available [facility] [place] ([facility]) , [address] [place] [address] ,[address] , [place] , [address], [place] , 02/02/2023 10:01:27 01/28/20 23 01/27/2023 HR HPV panel HPV 33/58* negati ve Not Available [facility] [place] [facility] , [address] [place] [address] [address] , [place] , [address], [place] , 02/02/2023 10:01:27 01/28/20 23 01/27/2023 HR HPV panel HPV 51* negati ve Not Available [facility] [place] [facility] , [address] [place] [address] [address] , [place] , [address], [place] , 02/02/2023 10:01:27 01/28/20 23 01/27/2023 surep ath Pap surepath Pap normal normal Cervix SPECI MEN(S ): SureP ath SOURC E OF COLLE CTION : Cervi edmundo LMP: Not Provi ded METHO DOLOG Y: SureP ath Pap Test w/o Imagi ng CLINI EDMUNDO HISTO RY: HX OF ABNOR MAL PAP SPECI MEN ADEQU ACY: Satis facto ry for inter preta tion; endoc ervic al cells /mendez sform ation zone prese nt. CYTOL OGIC SCREE SOFÍA INTER PRETA TION: NEGAT RONEN FOR INTRA EPITH ELIAL LESIO N OR MALIG CHEO ADDIT IONAL FINDI NGS: This case was selec prerna in accor dance with CLIA 88 and our Quali ty Assur ance progr am for addit ional revie w. Cytol ogist : Tae aileen De Anda le, CT (ASCP ) [ AV-IR VCY ] [address] [place] [address] , [place], [address] CLIA# : [id number] High- Risk HPV Panel : High- Risk HPV Panel by PCR* NEGAT RONEN t [ AV-IR VCY] [address] [facility] [place], [address] CLIA# : [id number] Pap testi ng is consi dered a scree sofía assay and shoul d not be used as the sole means of detec ting cance r. False -posi tives and false -nega tives can occur . Colle ction of speci mens in any oj r other than those appro nithya by the FDA, shoul d be consi dered off-l alecia use. Recom menda tions , if provi ded, are based on curre nt ASCCP algor ithms and patie nt infor matio n avail able at [facility]. Certa in histo rical and other clini edmundo infor matio n which may be impor tant for clini edmundo decis ion makin g may not be readi ly avail able at [facility], and thus corre latio n with the patie nt's compl ete clini edmundo infor matio n is neces robbi to guide appro priat e scree sofía, thera py, and surve illan ce. *Perf ormed by real- time PCR using the BD Oncla rity HPV assay . Patie nts who test posit ronen or negat ronen by this assay shoul d be follo wed up in accor dance with the physi steven' s asses sment of patie nt scree sofía, medic al histo ry, other risk facto rs, and profe ssion al guide lines . A negat ronen resul t does not exclu de the possi bilit y of infec tion becau se test resul ts may be affec prerna by speci men colle ction metho ds, patie nt facto rs, stage of infec tion and the prese nce of inter ferin g subst ances . This assay is FDA appro nithya for speci mens colle cted in SureP ath media . This assay perfo rmed on any other inter jazmyn valid ated media type is consi dered a Labor atory Devel oped Test and its perfo rmanc e yann cteri stics deter mined by [facility]. It has not been clear ed or appro nithya by the US Food and Drug Admin istra tion. The FDA has deter mined that such appro linda is not neces robbi provi ded that the labor atory maint ains its good stand ing as a clini edmundo labor atory with all cortney tory accre ditin g josué s and verena nuall y demon strat es that its testi ng marina cols and proce dures achie ve a high degre e of thomas tical accur acy. Testi ng perfo rmed at the follo wing labor atori es: Angel mcmanus Patho logy [address] [facility] , [address], [place] [address] Phone : [phone] Medic al Direc tor: Arturo mcmanus MD CLIA: [id number] Not Available [facility]) , [address] , [place] , [address], [place] , 02/02/2023 10:01:28 04/22/2022 04/22/2022 xr chest Pa/lat-inoffice ACC #[id number]: XR Chest PA/LAT 2 View - InOffice: 04/22/2022 6:40 PM CLINICAL HISTORY: R05.9,Cough, unspecified. COMPARISON: None. FINDINGS: The heart, lungs, mediastinum, pleural spaces, and pulmonary vasculature are within normal limits. IMPRESSION: Normal chest. Carroll Pratt MD Electronically Signed: 04/22/2022 6:48 PM Finalized: 04/22/2022 6:48 PM Macy Robles NP [facility] (Centralized Scheduling Use For All Imaging Orders) , [address] [place] [address] , [place] , [address], [place] , 05/05/2022 12:37:42 Result Notes Documentation Provider Name and Address Organization Details Recorded Time Xr, Chest : ACC #[id number]: XR Chest PA/LAT 2 View - InOffice: 04/22/2022 6:40 PM CLINICAL HISTORY: R05.9,Cough, unspecified. COMPARISON: None. FINDINGS: The heart, lungs, mediastinum, pleural spaces, and pulmonary vasculature are within normal limits. IMPRESSION: Normal chest. 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 Active Oriana Bates null, [facility] 2 12:01:42 Atopic dermatit is 15152515 Active Oriana dang, [facility] 2 12:01:42 Amenorrh ea 21337850 Completed 07/25/2016 Rosa Maria Corado MD [address] [place] [address], [address] [facility].[address] [place] [address], [address] , [facility] 7 18:12:24 Herpesvi rob infectio n [id number] Completed on valtrex suppress ion Rosa Maria Corado MD [address] [place] [address], [address] [facility] [place], [address] , [facility] 7 09:15:31 Hemorrho ids [id number] Completed dermapla st spray, sitz baths Rosa Maria Corado MD [address] [place] [address], [address] [facility] [place], [address] , [facility] 7 09:15:31 Pre-surg rani testing Completed 02/06: Ur Cx neg//GC& CTT neg/neg/ / 03/13: O Pos, ABsc neg, HIV, RPR, TSH, CBC, HCAb, HBsAg all neg/norm al, Rubella Immune.; 1H OGTT normal (91). GBS neg. Rosa Maria Corado MD [address] [place] [address], [address], [place], [address] , [facility] 7 09:15:31 Screenin g for disorder Completed Patient declines all aneuploi dy screenin g; MSAFP WNL normal tarsha scan, post placenta a placenta l cyst was seen so f/u us at 26 weeks shows EFW 52% Rosa Maria Corado MD [address] [place] [address], [address], [place], [address] , [facility] 7 09:15:31 Anemia of pregnanc y 43129634 Completed 06/02/16: Hgb 10.9/Hct 32.8, started on iron Rosa Maria Corado MD [address] [place] [address], [address], [place], [address] , [facility] 7 09:15:31 Routine antenata l care Active 2016 O positive // antibody neg // cbc wnl (borderl ine anemia) // RPR negative // hepatiti s B negative // rubella immune // HIV negative // hepatiti s C negative // TSH 1.28 // gonorrhe a and chlamydi a are negative // no UTI Oriana Chaparroce laurence, [facility] 2 12:01:42 Vulvodyn ia 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 Active 2017 postpart um - has gone to PT once and is waiting for insuranc e benefits [facility] 12:01:42 Pregnanc y 66114559 Completed 201712/30/2018 Rosa Maria Payne [facility] 2 10:35:31 Multigra nhi 941907166 Completed w/ 3rd deg tear she is consider ing 3 babies Rosa Maria Corado MD [address] [place] [address], [address], [place], [address] , [facility] 9 19:41:01 Vulvodyn ia 895789642 Completed 2017 postpart um - has gone to PT once and is waiting for insuranc e benefits Rosa Maria Corado MD [address] [place] [address], [address], [place], [address] , [facility] 9 19:41:01 Vitamin deficien cy 47087633 Completed 17 in the 1st trim; 25 by 12 weeks 2000 IU a day Rosa Maria Corado MD [address] [place] [address], [address], [place], [address] , [facility] 9 19:41:01 Screenin g for disorder Completed Declines all aneuploi dy screenin g; msafp WNL; Posterio r placenta , normal anatomy scan; XY yes cir Rosa Maria Corado MD [address] [place] [address], [address], [place], [address] , [facility] 9 19:41:01 Herpesvi rob infectio n [id number] Completed suppress ion started at 36 weeks Rosa Maria Corado MD [address] [place] [address], [address] [place], [address] , [facility] 9 19:41:01 Hemorrho ids [id number] Completed Rosa Maria Corado MD [address] [place] [address], [address], [place], [address] , [facility] 9 19:41:01 Routine antenata l care Completed 2016 O positive // antibody neg // cbc wnl (borderl ine anemia) // RPR negative // hepatiti s B negative // rubella immune // HIV negative // hepatiti s C negative // TSH 1.28 // gonorrhe a and chlamydi a are negative // no UTI Rosa Maria Corado MD [address] [place] [address], [address], [place], [address] , [facility] 9 19:41:01 Herpesvi rob infectio n 25672832 Active bid valtrex suppress ion started at 37 weeks Oriana Bates null, [facility] 2 12:01:42 Pregnanc y 94940108 Completed 202011/04/2021 Rosa Maria Payne null, [facility] 2 10:35:31 Screenin g for disorder Completed cfDNA WNL, XX normal tarsha scan, anterior placenta Rosa Maria dang, [facility] 2 10:35:27 Multigra nhi [id number] Completed may want a 4th, unsure about control. 2017 w/ 3rd deg tear 2019 , no complica tion, delivere d by Dr. Corado, AXEL - unmedica prerna and she does NOT want to do that again - so epidural . She said it was barbaric , hideous is another word that comes to mind. Rosa Maria dang, [facility] 2 10:35:27 Herpesvi rob infectio n 13067099 Completed bid valtrex suppress ion started at 37 weeks Rosa Maria dang, [facility] 2 10:35:27 Antenata l screenin g Completed O positive // antibody neg // cbc wnl // RPR negative // hepatiti s B negative // rubella immune // HIV negative // hepatiti s C negative // TSH 1.88 // gonorrhe a and chlamydi a are negative // no UTI Rosa Maria dang, [facility] 2 10:35:27 Producti ve cough 59250818 Active 2020 Oriana dang, [place] [facility] 2 12:01:42 Acute COVID-19 0451625947 Completed dx at 30 week, declined MAB tx. 32 weeks 62% 36 week 49% Rosa Maria dang, [facility] 2 10:35:27 Hemorrho ids [id number] Completed wants to use pramazon e pp - called in at 37 weeks for her to use pp Rosa Maria dang, [facility] 2 10:35:27 Problem Notes None recorded. Procedures Surgical History Date Name Laterality Status Provider Name and Address Organization Details Recorded Time 01/28/20 23 Date of Last Pap Smear completed RAJENDRA NATH [facility] 10/06/2023 12:37:45 09/19/19 22 NST completed JACKELIN PRITCHARD METEOROLOGICAL EQUIPMENT REPAIRER [address] [facility], [address], [place], [address], [place] [facility] [place] 09/18/2021 09:59:48 09/19/19 22 Biophysical Profile completed JACKELIN PRITCHARD [facility] [address] [facility], [address], [place], [address], [place] - [place] [facility] [place] 09/18/2021 10:39:18 09/16/19 22 NST completed Rosa Maria Corado MD [address] [place] [address], [address], [place], [address], [place] - [place] [facility] [place] 09/17/2021 09:20:56 09/16/19 22 Ultrasound, Limited completed Rosa Maria Corado MD [address] [place] [address], [address], [place], [address], [place] - [facility] [place] 09/17/2021 09:21:27 09/12/19 22 Biophysical Profile completed Rosa Maria Corado MD [address] [place] [address], [address], [place], [address], [place] - [place] [facility] [place] 09/11/2021 11:23:10 07/15/19 22 OB Ultrasound - 42105 Size completed Rosa Maria Corado MD [address] [place] [address], [address], [place], [address], [place] - [place] [facility] [place] 07/17/2021 10:50:37 02/05/20 21 OB Ultrasound - 71599 Transvaginal completed Rosa Maria Corado MD [address] [place] [address], [address], [place], [address], [place] - [place] [facility] [place] 02/03/2021 02:21:22 12/30/19 19 NST completed Rosa Maria Payne [place] - [place] [facility] [place] 12/29/2018 10:12:13 12/30/19 19 OB Ultrasound - 11743 Quick look completed Rosa Maria Corado MD [address] [place] [address], [address], [place], [address], [place] - [place] [facility] [place] 12/29/2018 22:32:01 11/23/19 19 OB Ultrasound - 01658 Quick look completed MD Callie Galaviz [facility], [address], [place], [address], [place] - [place] [facility] [place] 11/22/2018 10:37:16 05/05/20 18 OB Ultrasound - 31807 Transvaginal completed MD Callie Galaviz [facility], [address], [place], [address], [place] - [place] [facility] [place] 05/06/2018 19:02:29 09/11/19 17 NST completed MD Callie Galaviz [facility], [address], [place], [address], [place] - [place] [facility] [place] 09/10/2016 21:01:46 09/11/19 17 OB Ultrasound - 90700 Quick look completed [facility], [address], [place], [address], [place] - [place] [facility] [place] 09/10/2016 21:02:19 09/08/19 17 NST completed MD Callie Galaviz [facility], [address], [place], [address], [place] - [place] [facility] [place] 09/08/2016 23:52:05 09/08/19 17 OB Ultrasound - 50538 Quick look completed MD Callie Galaviz [facility], [address], [place], [address], [place] - [place] [facility] [place] 09/08/2016 23:52:29 08/26/19 17 NST completed [facility], [address], [place], [address], [place] [facility] [place] 08/26/2016 22:59:38 08/26/19 17 OB Ultrasound - 34736 Quick look completed MD Callie Galaviz [facility], [address], [place], [address], [place] - [place] [facility] [place] 08/26/2016 23:00:15 08/05/19 17 OB Ultrasound - 95508 Quick look completed MD Callie Galaviz [facility], [address], [place], [address], [place] [facility] 08/06/2016 23:19:15 02/07/20 16 OB Ultrasound, Free Text completed Rosa Maria Corado MD [address] [facility], [address], [place], [address], [place] [facility] 02/08/2016 21:54:08 Other completed Janice Walker [facility] 02/20/2021 17:13:59 Imaging Results Imaging Date Name Status LastModifiedBy Organiza tion Detail LastModifiedTime 04/22/2022 xr chest Pa/lat-christa ffice completed Macy Robles NP [facility] (Centralized Scheduling Use For All Imaging Orders) , [address] [place] [address] , [address], [place] , 05/05/2022 12:37:42 Procedure Notes None recorded. Medical Equipment None Reported. Allergies Allergen ID Allergen Name Allergen Category Reaction Reaction Severity Criticality Documentation Date Start Date Code Code System Note Provider Name and Address Organization Details Recorded Time 475318 Latex (substanc e) environme nt,medica tion Not available Not available Not available 10/14/2023 09609 8007 SNOMED Not Available lupe - External Data Service - prod 4 04:58:15 Medications Name Authored On Sig Start Date Stop Date Status Note Indication Fill Status Repeat Number Dispense Quantity LastModified by Organization Details LastModified Time Marina pic 0.1 % topic al ointm ent 6 18:12:45 APPL Y A THIN LAYE R TO THE AFFE CTED AREA (S) ON FACE BY TOPI EDMUNDO ROUT E 2 TIME S PER DAY ; RUB IN GENT LY AND COMP LETE LY. AVOI D EYES aborted Atopic dermatitis Not availab le 1 Not Available Rosalind Enamorado [facility] 02/07/2016 12:47:46 hydro corti sone butyr ate 0.1 % topic al ointm ent 6 18:12:45 APPL Y A THIN LAYE R TO THE AFFE CTED AREA (S) ON FACE BY TOPI EDMUNDO ROUT E 2 TIME S PER DAY PRN RASH AND ITCH . AVOI D EYES aborted Atopic dermatitis Not availab le 0 Not Available Rosalind Enamorado [facility] 02/07/2016 12:47:46 Colac e 7 14:24:54 2 q 8 10/08 aborted Not Available Not availab le 0 Not Available Rosalind Enamorado [facility] 10/08/2017 12:05:40 ibupr ofen 7 14:25:12 800m g as need ed 10/08 aborted Not Available Not availab le 0 Not Available Rosalind Enamorado [facility] 10/08/2017 12:05:44 Prena thomas 6 12:52:21 ayah y 10/08 aborted Not Available Not availab le 0 Not Available [facility] 10/08/2017 12:05:49 Bactr im DS 800 mg-16 0 mg table t 8 21:56:57 Take 1 tabl et ever y 12 hour s by oral rout e for 7 days . 12/02 aborted Vaginitis Not availab le 0 Not Available Conchita Urrutia [facility] 12/02/2017 16:57:44 lidoc vero 5 % topic al ointm ent 9 14:33:00 APPL Y TO AFFE CTED AREA (S) BY TOPI EDMUNDO ROUT E 1-4 TIME S AYAH Y NEED ED 09/09 aborted Vulvodynia Not availab le 2 Not Available Rosa Maria Corado MD [address] [facility], [address] [place], [address] 09/09/2018 09:51:51 fluco nazol e 150 mg table t 8 13:23:21 Take 1 tabl et by oral rout e. 12/13 aborted Yeast isolated but not further identified Not availab le 0 Not Available Rosa Yin [facility] 12/13/2018 09:55:55 Analp venessa-H C 2.5 %-1 % recta l cream 9 12:16:27 Inse rt 1 appl icat ion twic e a day by rect al rout e. 05/01 aborted Hemorrhoids Not availab le 3 Not Available [facility] 05/01/2020 15:33:15 docus ate sodiu m 100 mg capsu le 9 12:07:08 05/01 aborted Not Available Not availab le 0 Not Available [facility] 05/01/2020 15:33:40 Macro bid 100 mg capsu le 9 18:21:32 Take 1 caps ule ever y 12 hour s by oral rout e as dire cted for 7 days . 05/01 aborted Urinary tract infectious disease Not availab le 0 Not Available [facility] 05/01/2020 15:34:03 Ortho Micro nor 0.35 mg table t 9 12:10:53 Take 1 tabl et ever y day by oral rout e. 05/01 aborted Dysmenorrhe a Not availab le 4 Not Available [facility] 05/01/2020 15:34:08 SSD 1 % topic al cream 1 08:10:38 APPL Y EXTE RNAL LY TO THE AFFE CTED AREA TWIC E AYAH Y DIRE CTED 02/20 aborted Not Available Not availab le 0 Not Available Janice Walker [facility] 02/20/2021 17:12:32 amoxi cilli n 875 mg table t 1 08:04:14 TAKE 1 TABL ET BY MOUT H EVER Y 12 HOUR S FOR 10 DAYS 04/08 aborted Not Available Not availab le 0 Not Available Dannielle Salinas [facility] 04/08/2021 12:39:35 cepha lexin 250 mg capsu le 09:12:36 TAKE 1 CAPS ULE BY MOUT H THRE E TIME S AYAH Y FOR 5 DAYS 04/08 aborted Not Available Not availab le 0 Not Available Dannielle Salinas [facility] 04/08/2021 12:39:38 valac yclov ir 500 mg table t 2 05:03:01 TAKE 1 TABL ET BY MOUT H TWIC E AYAH Y UNTI L DELI VERY . 04/09 aborted Not Available Not availab le 0 Not Available Macy Robles NP [address] [facility], [address], [place], [address], [facility] 04/09/2022 15:35:17 ondan setro n 4 mg disin tegra ting table t 2 04:52:42 DISS OLVE ONE (1) TABL ET ON TONG UE EVER Y 4 HOUR S NEED ED FOR NAUS EA OR VOMI TING . 04/09 aborted Not Available Not availab le 0 Not Available Macy Robles NP [address] [facility], [address], [place], [address], [facility] 04/09/2022 15:35:21 mupir ocin 2 % topic al ointm ent 1 09:12:36 APPL Y TOPI CALL Y TO THE [facility] CTED AREA THRE E TIME S AYAH Y FOR 10 DAYS 04/09 aborted Not Available Not availab le 0 Not Available Macy Robles NP [address] [facility], [address], [place], [address], [facility] 04/09/2022 15:35:25 multi vitam in 1 11:51:58 04/09 aborted Not Available Not availab le 0 Not Available Macy Robles NP [address] [facility], [address], [place], [address], [facility] 04/09/2022 15:35:28 Anuco rt-HC 25 mg suppo sitor y 2 10:00:03 04/09 aborted Not Available Not availab le 0 Not Available Macy Robles NP [address] [facility], [address], [place], [address], [facility] 04/09/2022 15:35:34 ibupr ofen 600 mg table t 2 04:52:42 TAKE ONE (1) TABL ET(S ) BY ILA Choi EVER Y SIX HOUR S. 04/09 aborted Not Available Not availab le 0 Not Available Macy Robles, WING [address] [facility], [address], [place], [address], [facility] 04/09/2022 15:35:39 lidoc vero- prilo john 2.5 %-2.5 % topic al cream 2 10:00:03 04/09 aborted Not Available Not availab le 0 Not Available Macy Robles, WING [address] [facility], [address], [place], [address], [facility] 04/09/2022 15:35:42 Analp venessa-H C 1 %-1 % recta l cream 2 15:35:52 Inse rt 1 appl icat ion twic e a day by rect al rout e. 04/09 aborted Nausea and vomiting Not availab le 1 Not Available Not Available [facility] 04/09/2022 15:35:46 hydro corti sone- pramo xine 2.5 %-1 % topic al cream 2 15:33:24 Appl y 1 g 3 time s a day by topi edmundo rout e for 14 days . 04/09 aborted Hemorrhoids Not availab le 2 Not Available Not Available [facility] 04/09/2022 15:35:50 predn isone 20 mg table t 2 12:01:36 40 mg [address] rout e. 04/26 active Not Available Not availab le 0 Not Available Oriana Brown Bates [facility] 05/05/2022 12:01:36 azith romyc in 250 mg table t 2 04:55:55 05/05 aborted Not Available Not availab le 0 Not Available Orianaminnie Bates [facility] 05/05/2022 12:06:58 Prena thomas + DHA 0 15:34:50 01/27 aborted Not Available Not availab le 0 Not Available Lisset Monson [facility] 01/27/2023 08:41:48 fluti anjum e propi paul 50 mcg/a ctuat ion nasal spray ,susp ensio n 3 20:32:09 NORY E LIQU ID AND USE 2 SPRA YS IN EACH NOST RIL EVER Y DAY 01/27 aborted Not Available Not availab le 0 Not Available [facility] 08:41:51 penic illin V potas sium 500 mg table t 4 05:59:32 TAKE ONE (1) TABL ET BY MOUT H 2 TIME S PER DAY FOR 10 DAYS . 10/13 aborted Not Available Not availab le 0 Not Available RAJENDRA NATH [facility] 10/14/2023 11:23:32 polye thyle ne glyco l 3350 17 gram/ dose oral powde r 4 05:59:32 MIX ENTI RE ASTRID LE INTO 64 OUNC ES OF LM R LIQU IDS. SAL Dykes THE EVEN ING BEFO RE COLO NOSC OPY DIRE CTED . 10/13 aborted Not Available Not availab le 0 Not Available RAJENDRA NATH [facility] 10/14/2023 11:23:35 clobe tasol 0.05 % topic al ointm ent 4 07:57:00 APPL Y A THIN LAYE R TO THE AFFE CTED AREA (S) BY CRISTELA Saenz 2 TIME S PER WEEK . active Not Available Not availab le 0 Not Available Not Available [facility] 10/24/2023 07:57:00 escit alopr am 10 mg table t 4 07:57:00 TAKE ONE (1) TABL ET BY MOUT H EVER Y DAY. active Not Available Not availab le 0 Not Available Not Available [facility] 10/24/2023 07:57:00 Vitals Date Recorded Body height Body mass index (BMI) Body weight Heart rate Systolic And Diastolic Provider Name and Address Organization Details Last Updated DateTime 10/14/2023 170.18 cm 23.9 kg/m2 16595 g 84 /min 121/85 mm[Hg] RAJENDRA NATH [facility] 10/14/2023 11:23:24 Date Recorded Body height Body mass index (BMI) Body weight Heart rate Oxygen saturation Oxygen saturation in Arterial blood by Pulse oximetry Systolic And Diastolic Provider Name and Address Organization Details Last Updated DateTime 3 170.18 cm 24.2 kg/m2 69712 g 80 /min 95 % 95 % 127/76 mm[Hg] Lisset Beaversapurva [facility] 3 08:40:41 Date Recorded Body height Body temperature Provider N liset and Address Organization Details Last Updated DateTime 04/09/2022 170.18 cm 96.5 [degF] Brittney Personz [facility] 04/09/2022 14:23:21 Date Recorded Body height Body mass index (BMI) Body weight Body temperature Heart rate Respiratory rate Oxygen saturation Oxygen saturation in Arterial blood by Pulse oximetry Systolic And Diastolic Provider Name and Address Organization Details Last Updated DateTime 2 170.18 cm 24.1 kg/m2 85783 g 98 [degF] 86 /min 16 /min 99 % 99 % 119/76 mm[Hg] Evon nur [facility] 2 19:37:00 Date Recorded Body height Body mass index (BMI) Body weight Pain severity - 0-10 verbal numeric rating [Score] - Reported Heart rate Oxygen saturation Oxygen saturation in Arterial blood by Pulse oximetry Body temperature Systolic And Diastolic Provider Name and Address Organization Details Last Updated DateTime 2 170.18 cm 23.7 kg/m2 65381 g 0 77 /min 98 % 98 % 98 [degF] 110/72 mm[Hg] Oriana Browndo Bates [facility] 2 12:12:19 Social History Question Answer Notes LastModified by Organizat ion Details LastModified Time Tobacco Smoking Status Never Smoker Not Available Harry 01/27/2023 08:32:26 Tobacco Status Never user null since Informatio n not available Not Available Have you had a COVID-19 vaccine in the last 7 days? No null [email or web address] Information not available Not Available In the last 12 months did you skip medications to save money? No null [email or web address] Information not available Not Available In the last 12 months, was there a time when you needed to see a doctor but could not because of cost? No null [email or web address] Information not available Not Available In the last 12 months, have you ever had to go without health care because you didn t have a way to get there? No null [email or web address] Information not available Not Available In the last 12 months did you ever eat less than you felt you should because there wasn t enough money for food? No null [email or web address] Information not available Not Available In the past 12 months has the electric, gas, oil, or water company threatened to shut off services in your home? No null [email or web address] Information not available Not Available Are you worried that in the next 2 months you may not have stable housing? No null [email or web address] Information not available Not Available Do you feel physically and emotionally unsafe where you currently live? No null [email or web address] Information not available Not Available Do you want help finding or keeping work or a job? No null [email or web address] Information not available Not Available Do you want help with school or training? For example, starting or completing job training or getting a high school diploma, GED, or equivalent? No null [email or web address] Information not available Not Available Do you often feel lonely? No null [email or web address] Information not available Not Available Have you had any of these symptoms: Chills, Headache, Fatigue, Muscle or body aches, Sore throat, New loss of taste or smell, Nausea or vomiting, or Diarrhea? Yes null [email or web address] Information not available Not Available Have you had a fever and/or symptoms of a lower respiratory illness (cough, difficulty breathing, etc)? Yes null [email or web address] Information not available Not Available In the past 10 days, have you been told you may have COVID-19 or have been tested for COVID-19? Yes null [email or web address] Information not available Not Available Live alone or with others? with others Not Available [facility] 04/22/2022 19:27:25 What is your level of caffeine consumption? Occasional Not Available [facility] 19:27:35 Marital status Not Available [facility] 1 06/22/2021 19:27:39 What type of diet are you following? Regular Not Available [facility] 04/22/2022 19:27:42 How many days in the past year have you consumed 5 or more drinks? 0 Not Available [facility] 04/22/2022 19:27:49 Education 2 Year College Not Available [facility] 06/22/2021 19:27:49 How many children do you have? 0 Enid dang [facility] 04/09/2016 10:30:12 What is your relationship status? Not Available [facility] 01/27/2023 08:32:26 How much tobacco do you smoke? None Not Available [facility] 01/27/2023 08:32:26 What was the date of your most recent tobacco screening? RAJENDRA NATH laurence [facility] 10/14/2023 11:23:52 Have you ever been counseled for unhealthy alcohol use? No Stephany dang [facility] 02/20/2021 17:05:28 If you are , what was your level of alcohol consumption prior to ? Moderate Stephany dang [facility] 02/20/2021 17:05:28 How many years have you consumed alcohol? 15 Stephany dang [facility] 02/20/2021 17:05:28 Which of your hands is dominant? Right Stephany dang [facility] 02/20/2021 17:05:34 How many days in the past year have you consumed 4 or more drinks? 10 Not Available [facility] 03/05/2021 11:58:20 What is your home situation? Both parents Rosa Maria dang [facility] 09/11/2021 11:12:19 Social History Observation Description Date Observed Sex Female Gender Identity Identifies as female 01/13/2024 Sexual orientation Straight or heterosexual 01/2020 Legal Sex Female Status Not (finding) 12/06/19 25 No social history survey screeners recorded No social history SDOH screeners recorded Functional Status Question Answer Note LastModified by Organizat ion Details LastModified Time What is your exercise level? Moderate Not Available [facility] 04/22/2022 19:27:07 What is your level of alcohol consumption? Occasional Not Available [facility] 01/27/2023 08:31:36 Are you currently employed? Yes Stephanyjian dang [facility] 02/20/2021 17:05:25 Do you use any illicit or recreational drugs? No Not Available [facility] 03/05/2021 11:58:05 Do you or have you ever used any other forms of tobacco or nicotine? No Not Available [facility] 03/05/2021 11:58:11 No Functional Screening assessment recorded No Functional SDOH screeners recorded Mental Status None recorded. Date Assessment Value LastModified by Organizat ion Details LastModified Time 4 Patient Health Questionnaire 23 JACKELIN VILLALOBOSUCET [facility] 10/14/2023 11:40:09 4 Little interest or pleasure in doing things More than half the days JACKELIN FRANCHESKA [facility] 10/14/2023 11:40:09 4 Feeling down, depressed, or hopeless Nearly every day JACKELIN FRANCHESKA [facility] 10/14/2023 11:40:09 4 Trouble falling or staying asleep, or sleeping too much Nearly every day JACKELIN FRANCHESKA [facility] 10/14/2023 11:40:09 4 Feeling tired or having little energy Nearly every day JACKELIN FRANCHESKA [facility] 10/14/2023 11:40:09 4 Poor appetite or overeating Nearly [facility] 11:40:09 4 Feeling bad about yourself - or that you are a failure or have let yourself or your family down Nearly every day JACKELIN FRACNHESKA [facility] 10/14/2023 11:40:09 4 Trouble concentrating on things, such as reading the newspaper or watching television Nearly every day JACKELIN FRANCHESKA [facility] 10/14/2023 11:40:09 4 Moving or speaking so slowly that other people could have noticed? Or the opposite - being so fidgety or restless that you have been moving around a lot more than usual Nearly every day JACKELIN HEDRICKP [place] [facility] 10/14/2023 11:40:09 4 Thoughts that you would be better off or of hurting yourself in some way Not at all JACKELIN PRITCHARD [employer] [place] [facility] 10/14/2023 11:40:09 4 If you checked off any problems, how difficult have these problems made it for you to do your work, take care of things at home, or get along with other people? JACKELIN PRITCHARD [employer] [place] [facility] 10/14/2023 11:40:09 4 Generalized Anxiety Disorder 14 JACKELIN VILLALOBOSUCET [employer] [place] [facility] 10/14/2023 11:41:38 4 Feeling nervous, anxious or on edge JACKELIN YANCEYT [employer] [place] [facility] 10/14/2023 11:41:38 4 Not being able to stop or control worrying JACKELIN YANCEYT [employer] [place] [facility] 10/14/2023 11:41:38 4 Worrying too much about different things JACKELIN PRITCHARD [employer] [place] [facility] 10/14/2023 11:41:38 4 Trouble relaxing JACKELIN PRITCHARD [employer] [place] [facility] 10/14/2023 11:41:38 4 Being so restless that it is hard to sit still JACKELIN PRITCHARD [employer] [place] [facility] 10/14/2023 11:41:38 4 Becoming easily annoyed or irritable JACKELIN VILLALOBOSUCET [employer] [place] [facility] 10/14/2023 11:41:38 4 Feeling afraid as if something awful might happen JACKELIN YANCEYT [employer] [place] [facility] 10/14/2023 11:41:38 1 Patient Health Questionnaire 0 Janice Walker [facility] 02/20/2021 17:14:11 1 Little interest or pleasure in doing things Not at all [facility] 02/20/2021 17:14:11 Feeling down, depressed, or hopeless Not at all [facility] Denise [facility] 02/20/2021 17:14:11 1 Trouble falling or staying asleep, or sleeping too much [facility] Denise [facility] 02/20/2021 17:14:11 1 Feeling tired or having little energy [facility] 02/20/2021 17:14:11 [facility] 02/20/2021 17:14:11 Feeling bad about yourself - or that you are a failure or have let yourself or your family down [facility] 02/20/2021 17:14:11 Trouble concentrating on things, such as reading the newspaper or watching television [facility] Denise [facility] 02/20/2021 17:14:11 1 Moving or speaking so slowly that other people could have noticed? Or the opposite - being so fidgety or restless that you have been moving around a lot more than usual [facility] 02/20/2021 17:14:11 Thoughts that you would be better off or of hurting yourself in some way [facility] 02/20/2021 17:14:11 If you checked off any problems, how difficult have these problems made it for you to do your work, take care of things at home, or get along with other people? [facility] Kali Walker [facility] 02/20/2021 17:14:11 1 Patient Health Questionnaire 0 [facility] Denise [facility] 03/19/2021 14:22:13 Little interest or pleasure in doing things Not at all [facility] [place] [facility] 03/19/2021 14:22:13 Feeling down, depressed, or hopeless Not at all [facility] [place] [facility] 03/19/2021 14:22:13 1 Trouble falling or staying asleep, or sleeping too much [facility] [place] [facility] 03/19/2021 14:22:13 Feeling tired or having little energy [facility] [place] [facility] 03/19/2021 14:22:13 Poor appetite or overeating [facility] Kali Slatera [place] [facility] 03/19/2021 14:22:13 Feeling bad about yourself - or that you are a failure or have let yourself or your family down [facility] [place] [facility] 03/19/[facility]21 14:22:13 Trouble concentrating on things, such as reading the newspaper or watching television [facility] [place] [facility] 03/19/2021 14:22:13 1 Moving or speaking so slowly that other people could have noticed? Or the opposite - being so fidgety or restless that you have been moving around a lot more than usual [facility] [place] [facility] 03/19/2021 14:22:13 Thoughts that you would be better off or of hurting yourself in some way [facility] [facility] 03/19/2021 14:22:13 If you checked off any problems, how difficult have these problems made it for you to do your work, take care of things at home, or get along with other people? [facility] Kali Walker [place] [facility] 03/19/2021 14:22:13 2 Patient Health Questionnaire 0 Brittney Coonirez [facility] 04/09/2022 14:23:00 2 Little interest or pleasure in doing things Not at all Brittneyconnie Ferrari [facility] 04/09/2022 14:23:00 2 Feeling down, depressed, or hopeless Not at all Brittney Ferrari [facility] 04/09/2022 14:23:00 2 Trouble falling or staying asleep, or sleeping too much [facility] 04/09/2022 14:23:00 2 Feeling tired or having little energy Brittney Vega [facility] 04/09/2022 14:23:00 2 Poor appetite or overeating Brittney Vega [facility] 04/09/2022 14:23:00 2 Feeling bad about yourself - or that you are a failure or have let yourself or your family down Brittney Vega [facility] 04/09/2022 14:23:00 2 Trouble concentrating on things, such as reading the newspaper or watching television [facility] 04/09/2022 14:23:00 2 Moving or speaking so slowly that other people could have noticed? Or the opposite - being so fidgety or restless that you have been moving around a lot more than usual Brittneyconnie Ferrari [facility] 04/09/2022 14:23:00 2 Thoughts that you would be better off or of hurting yourself in some way [facility] 04/09/2022 14:23:00 2 If you checked off any problems, how difficult have these problems made it for you to do your work, take care of things at home, or get along with other people? Brittney Personz [facility] 04/09/2022 14:23:00 2 Patient Health Questionnaire 0 Oriana Bates [facility] 05/05/2022 12:09:29 2 Little interest or pleasure in doing things Not at all Oriana MILLER [facility] 05/05/2022 12:09:29 2 Feeling down, depressed, or hopeless Not at all Oriana MILLER [facility] 05/05/2022 12:09:29 2 Trouble falling or staying asleep, or sleeping too much Oriana MILLER [facility] 05/05/2022 12:09:29 2 Feeling tired or having little energy Oriana MILLER [facility] 05/05/2022 12:09:29 2 Poor appetite or overeating Oriana MILLER [facility] 05/05/2022 12:09:29 2 Feeling bad about yourself - or that you are a failure or have let yourself or your family down Oriana Bates [facility] 05/05/2022 12:09:29 2 Trouble concentrating on things, such as reading the newspaper or watching television Oriana MILLER [facility] 05/05/2022 12:09:29 2 Moving or speaking so slowly that other people could have noticed? Or the opposite - being so fidgety or restless that you have been moving around a lot more than usual Oriana MILLER [facility] 05/05/2022 12:09:29 2 Thoughts that you would be better off or of hurting yourself in some way Oriana MILLER [facility] 05/05/2022 12:09:29 2 If you checked off any problems, how difficult have these problems made it for you to do your work, take care of things at home, or get along with other people? Oriana Olivas [facility] 05/05/2022 12:09:29 No Mental SDOH screeners recorded Family History Relationship Description Onset Age of this Age Resolved Age Notes LastModified by Organization Details LastModified Time Unspecified Relation Diabetes mellitus [email or web address] Not available 2015 13:00:08 Unspecified Relation Malignant tumor of cervix Cousin - full hyst [email or web address] Not available 01/27/2023 11:39:33 Father Hyperlipidem ia [email or web address] Not available 2022 08:31:35 Father Hypertensive disorder [email or web address] Not available 2020 17:04:23 Father Hypercholest erolemia [email or web address] Not available 2022 08:31:35 Mother Well adult anxiet y, depres william, bipola r [email or web address] Not available 01/27/2023 08:31:35 Mother Anxiety [email or web address] Not available 08:31:35 Maternal Aunt Diabetes mellitus [email or web address] Not available 2020 17:05:24 Maternal Aunt Malignant tumor of colon [email or web address] Not available 2022 08:31:35 Maternal Grandmother Malignant neoplasm of lung [email or web address] Not available 2022 08:31:35 Paternal Uncle Anxiety [email or web address] Not available 01/27/2023 08:31:35 Paternal Uncle Depressive disorder [email or web address] Not available 2021 19:27:13 Paternal Grandmother History of malignant neoplasm [email or web address] Not available 2022 08:31:35 Notes:F - hyperlipidemia M- bipolar MGM - healthy in her 90s MFM - bipolarm PGM - lung dz smoker PGF - lung cancer smoker () no congenital abnormalities reviewed 05/05/2022 Medical History Condition Response HIV or AIDS N cancer N arthritis N other genitourinary issue Y tuberculosis N allergies N asthma N depression N high blood pressure N kidney disease N acid reflux/GERD N heart attack (CO) N blood clots N bleeding disorder N diabetes mellitus N breast cancer N liver disease N other skin disorder issue N thyroid disease N arrhythmia N genitourinary disease N chicken pox N seizures N defects or inherited disease N sleep apnea N migraines N infertility N kidney stones N lung disease N other respiratory issue N anesthesia complications N breast problems N epilepsy N eczema N headaches N other N other psychiatric issue N hepatitis N anxiety disorder N immune system disorder N stroke N high cholesterol N Gynecological History Statement/Question Response Flow Light Date of LMP 10/14/2023 Number of stillbirths 0 STIs/STDs Y Y Induced Abortions N Date and Result of Last Pap 03/29/2018; WNl,HR HPV negative Are you kiera or post menopausal? N History of gestational diabetes? N Would the patient like to be tested for STIs/STDs today? N History of preeclampsia/eclampsia? N Number of miscarriages 0 Age at First Sexual [place] 20 History of depression? N How much did your biggest baby weigh (lb s & oz)? 8lbs 8 oz Number of live births? 1 Last HPV Result Negative How many births? 0 Abnormal Pap N Are you having menstrual periods? N HPV Vaccine N Duration of Flow (days) 5 Cramps Y Current Control Method Partner Vas ectomy Age at Menarche 19 Age at First Child 30 How many vaginal births? 1 Frequency of Cycle (Q days) 30 Number of pregnancies 2 Sexually Active? Y Menses Monthly Y Date of Last Pap Smear 01/27/2023 If yes, which STI/STDs have you had? her pes LMP Definite Number of Sexual Partners in Lifetime 5 to 10 Obstetrics History GPAL:G 3 P 3 0 0 3 Type Value Full Term 3 Living 3 Total 3 Immunizations Vaccine Type Date Status Note Provider Nam e and Address Organization Details Recorded Time Influenza, split virus, trivalent, PF 8 completed Not Available [facility] 06/17/2019 02:23:50 Influenza, split virus, quadrivalent , PF 2 cancelled patient objection Macy Robles NP [address] [facility], [address], [place], [address], [facility] 05/06/2022 22:16:04 Tdap 9 [facility]2019 12:07:23 Influenza, split virus, trivalent, PF 6 completed Not Available [facility] 06/17/2019 02:19:08 Tdap 7 completed Not Available [facility] 06/17/2019 02:19:08 Past Encounters Encounter ID Performer Location Encounter Start Date Encounter Closed Date Diagnosis/Indication Diagnosis SNOMED-CT Code Diagnosis ICD10 Code Diagnosis Note [id number] Idalmis Collazo MD zCLSD_TCP A_IM_TRIN ITY 101 [address] [facility] [address] [place] [address] 08/13/2015 14:12:52 08/13/2015 15:00:29 Adult health examination 809839631 Z00.00 disc HM for age, fertility planning with [employer] next week. may need FSH day 3, etc. /sono/Clom id Skin lesion 88778821 L98 .9 she has several irreg nevi that need attention, on belly and back. Seborrheic dermatitis 50 812514 L21.9 eyelids, try baby [place]ampoo wipe [place] hs [id number] Margaret Ashley MD [facility] [address] [place] [address] [address] [place] [address] 09/11/2015 14:45:55 09/11/2015 16:34:05 Multiple benign melanocytic nevi 093811389 D22.9 Scattered benign appearing nevi. Recommend regular sun protection and sunscreen as well as continued self-monit oring. Recommend yearly full body skin exams. Discussed ugly duckling rule and signs of melanoma. Discussed mole mapping with use of pictures or leo. Right mid abdomen with an 8mm irregularl y pigmented nevus with an area of possible regression . discussed monitoring with photos over the next 3-6 months versus biopsy today, ultimately recommende d biopsy. Pt prefers to PA to make sure she isn't charged out of pocket. Will PA shave biopsy. Discussed she will have an additional cost for the pathology report in addition to this as well. Atopic dermatitis 517515 01 L20.84 upper lid margin with erythema, mild swelling, and some mild scale. ddx includes mandy derm versus contact dermatitis , at this point favor contact dermatitis given amount of swelling - recommend starting Protopic daily, reviewed possible s/e including irritation , burning, can try to get Elidel though mail order if unable to get Protopic - start hydrocorti sone butyrate BID for 1-2 weeks in the meantime, discussed careful applicatio n with a cotton tipped applicator to avoid contact with the eyes. will start locoid until she can get protopic. - also recommende d d/cing all facial products and slowly adding back 1 at a time every 2-3 weeks to avoid confoundin g factors [id number] Rosa Maria Corado MD TCPA_OBGY N_MPT [address] [address] 02/07/2016 12:28:33 02/07/2016 13:38:15 Amenorrhea 15862737 N91.2 SIUP confirmed screening 2437 02086 Z36 Uncertain viability of 442545351 O36.80X1 EDC of 09/07/2015 Hemorrhoids 47729820 K64 .9 Strategies to decrease hemorrhoid s reviewed. Stool softeners, high fiber foods, magnesium, witch marlon and sitz baths [id number] Rosa Maria Corado MD TCPA_OBGY N_MPT [address] [address] 03/13/2016 11:12:04 03/13/2016 12:20:02 screening 764148253 Z36 [id number] Rosa Maria Corado MD TCPA_OBGY N_MPT [address] [address] 04/09/2016 10:25:04 04/09/2016 11:49:03 Routine care 416762529 Z34.92 [id number] Rosa Maria Corado MD TCPA_OBGY N_MPT [address] [address] 05/05/2016 10:25:05 05/05/2016 11:01:38 Routine care 554205545 Z34.92 [id number] Rosa Maria Corado MD TCPA_OBGY N_MPT [address] [address] 06/02/2016 15:35:32 06/02/2016 16:53:03 Routine care 907049873 Z34.92 [id number] Rosa Maria Corado MD TCPA_OBGY N_MPT [address] [address] 06/23/2016 09:58:15 06/23/2016 10:45:21 Routine care 587986340 Z34.92 [id number] MD MATHIEU GalavizA_OBGY N_MPT [address] [address] 07/09/2016 10:28:13 07/09/2016 11:43:21 Routine care 934497307 Z34.92 [id number] Rosa Maria Corado MD TCPA_OBGY N_MPT [address] [address] 07/23/2016 11:10:10 07/23/2016 12:00:42 Routine care 100277753 Z34.92 [id number] Rosa Maria Corado MD TCPA_OBGY N_MPT [address] [address] 08/04/2016 16:00:40 08/04/2016 17:29:41 Routine care 123839372 Z34.92 Herpesvirus infection 23 847214 A60.00 [id number] Kilo Schwartz MD TCPA_OBGY N_MPT [address] [address] 08/12/2016 10:30:07 08/12/2016 11:03:34 Routine care 152902347 Z34.93 [id number] Rosa Maria Corado MD TCPA_OBGY N_MPT [address] [address] 08/17/2016 12:50:43 08/17/2016 14:03:12 [id number] Rosa Maria Corado MD TCPA_OBGY N_MPT [address] [address] 08/25/2016 10:33:46 08/25/2016 11:47:16 False labor 135671873 O47.9 Routine an tenatal care 779886335 Z34.92 [id number] Rosa Maria Corado MD TCPA_OBGY N_MPT [address] [address] 09/03/2016 13:56:38 09/03/2016 14:56:36 Routine care 204450286 Z34.92 [id number] Rosa Maria Corado MD TCPA_OBGY N_MPT [address] [address] 09/07/2016 14:32:34 09/07/2016 16:23:39 Post-term 11052106 O48.0 [id number] Rosa Maria Corado MD TCPA_OBGY N_MPT [address],[place] [address] [place] [address] 09/10/2016 14:30:50 09/10/2016 15:49:40 Routine care 555890435 Z34.92 Post-term 9096 8009 O48.0 [id number] Rosa Maria Corado MD TCPA_OBGY N_MPT [address] [address] 09/24/2016 14:12:42 09/24/2016 15:06:29 state 65456528 Z39.2 Patient is doing well, no depression Abnormal g ranulation tissue 28107068 L92.9 A small amount of granulatio n tissue is noted, patient has no symptoms. Patient counseled that if she has bleeding or pain we should remove this. We'll reassess at the next visit Third degr ee perineal laceration 50806367 O70.20 healing well, send to PT [id number] Rosa Maria Corado MD TCPA_OBGY N_MPT [address] [address] 10/20/2016 15:59:02 10/20/2016 17:40:38 Dysmenorrhea 089163071 N94.6 state 2430377 1 Z39.2 Patient is doing well, no depression . PT for h/ho 3rd degree tear. [id number] Rosa Maria Corado MD TCPA_OBGY N_MPT [address] [address] 10/08/2017 11:48:17 10/08/2017 12:54:06 Herpes simplex 91859067 B00.9 Fissure in skin 14713736 R23.4 Cultures were taken, the skin appears lichenoid (but not necessaril y LS - it could be lichenoid rxn to inflammati on). PT was given handout from Uptodate and LS and was counseled that Lichen sclerosus refers to a benign, chronic, progressiv e dermatolog ic condition. The cause of lichen sclerosus is unknown. She is also counseled that this disease can progress without symptoms and she will require frequent checks (q 6 months) possibly for the remainder of her life. Will tx w/ thin film of clobetesol and RTC in 6 weeks and if not significan tly improved then will bx. Family bruno nning education 162745842 Z30.02 I counseled that the pull-out method can lead to b/c the pre-cum has sperm in it. control options were offered. [id number] MD MATHIEU GalavizA_OBPRO N_MPT [address] [address] 12/02/2017 16:40:12 12/02/2017 17:28:48 Herpes simplex 04882841 B00.9 Fissure in skin 18375556 R23.4 The exam is much improved (see serial pictures); will decrease the clobetesol down to 3 times a week. [id number] MD MARV Galaviz_OBPRO N_MPT [address] ,[address] [address] 03/29/2018 08:52:09 03/29/2018 09:57:04 Deficient knowledge of preconception health practices 893601384 Z76.89 Pt counseled to start taking PNV now and was given samples. She was was given ACOG lit about pre conceptual health. Pt also given FDA mercury warning , Pt counseled that it can take up to one year for a healthy couple to become and that she can document ovulation w/ an ovulation predictor kit. Have sex QOD starting on day 5-7 of cycle.. She was counseled that she should see the dentist every 6 months. May need ovulation induction, she is open to this in May. Exposure t o communicable disease 783633399 Z20.9 Administra tion of influenza vaccine 03624984 Z23 Gynecologi c examination 54288718 Z01.419 WWE done, flu shot done.Reduc e clobetesol to once a week. 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 Ok to do PFPT [id number] Rosa Maria Corado MD TCPA_OBGY N_MPT [address] [address] 06/16/2018 16:36:33 06/16/2018 18:22:16 Routine care 436692273 Z34.91 [id number] Rosa Maria Corado MD TCPA_OBGY N_MPT [address] [address] 07/12/2018 09:25:19 07/12/2018 10:13:43 Routine care 655742324 Z34.91 Risk of ex posure to communicable disease 217781450 Z20.9 [id number] Rosa Maria Corado MD TCPA_OBGY N_MPT [address] [address] 08/11/2018 13:44:25 08/11/2018 14:44:05 Routine care 371875742 Z34.91 Vulvodynia 899544093 N94 .819 Ok to do PFPT [id number] Rosa Maria Corado MD TCPA_OBGY N_MPT [address] [address] 09/09/2018 09:07:24 09/09/2018 09:59:15 Hemorrhoids 90271994 K64.9 Strategies to decrease hemorrhoid s reviewed. Stool softeners, high fiber foods, magnesium, witch marlon and sitz baths Routine an tenatal care 493418695 Z34.91 [id number] Rosa Maria Corado MD TCPA_OBGY N_MPT [address] [address] 09/29/2018 15:09:22 09/29/2018 16:27:11 Routine care 143096014 Z34.91 [id number] Kilo Schwartz MD TCPA_OBGY N_MPT [address] [address] 10/12/2018 09:00:39 10/12/2018 09:29:20 Routine care 298110577 Z34.93 [id number] Rosa Maria Corado MD TCPA_OBGY N_MPT [address] [address] 11/03/2018 11:07:51 11/03/2018 12:16:29 Routine care 027428276 Z34.93 Exposure t o communicable disease 235956973 Z20.9 Increased frequency of urination 364392036 R35.0 [id number] MD MATHIEU GalavizA_OBGY N_MPT [address] [address] 11/22/2018 09:43:37 11/22/2018 10:38:22 Genital herpes simplex 12133271 A60.9 Routine an tenatal care 086954893 Z34.91 [id number] MD MATHIEU GalavizA_OBPRO N_MPT [address] [address] 11/29/2018 11:57:45 11/29/2018 13:06:23 Routine care 280233286 Z34.91 [id number] Rosa Maria Corado MD TCPA_OBGY N_MPT [address] [address] 12/06/2018 10:39:06 12/06/2018 12:04:54 Routine care 490129446 Z34.91 [id number] Rosa Maria Corado MD TCPA_OBGY N_MPT [address] [address] 12/13/2018 09:45:50 12/13/2018 10:22:10 Routine care 973240348 Z34.91 [id number] Rosa Maria Corado MD TCPA_OBGY N_MPT [address] [address] 12/16/2018 08:25:46 12/16/2018 09:20:46 [id number] Z33.1 [id number] MD MARV Galaviz_OBPRO N_MPT [address] [address] 12/20/2018 09:47:42 12/20/2018 10:47:13 Routine care 083484475 Z34.91 [id number] Rosa Maria Corado MD TCPA_OBGY N_MPT [address],[place] [address] [place] [address] 12/26/2018 14:14:32 12/26/2018 15:20:31 Routine care 971381289 Z34.91 [id number] Rosa Maria Corado MD TCPA_OBGY N_MPT [address],[facility] [address] [place] [address] 12/29/2018 09:53:11 12/29/2018 11:07:52 Post-term [id number] O48.0 [id number] Rosa Maria Corado MD TCPA_OBGY N_MPT [address],[facility] [address] [place] [address] 02/03/2019 11:52:34 02/03/2019 12:29:06 state 80902310 Z39.2 The pt is doing well w/ weight loss, s/s of pp depression were reviewed and the Edinberg depression scale was done the pt was encouraged to contact the office if she has any symptoms, the pt may resume normal sexual and exercise activity. Pt counseled that ideal spacing between is 18 months to reduce risk to next . Continue PNV x 18 months. Call is dysparunia . EDS score is zero Dysmenorrhea 681263931 N 94.6 Hemorrhoids 00983688 K64 .9 Strategies to decrease hemorrhoid s reviewed. Stool softeners, high fiber foods, magnesium, witch marlon and sitz baths [id number] Marci Pete DO zCLSD_TCP A_FP_BALC ONES [address], [facility] [address] [place] [address] 05/01/2020 15:09:41 05/01/2020 16:48:22 Ingrowing toenail 364676910 L60.0 Adult heal th examination 698443820 Z00.00 [id number] JACKELIN VILLALOBOSUCET METEOROLOGICAL EQUIPMENT REPAIRER TCPA_OBGY N_MPT [address],[facility] [address] [place] [address] 09/05/2020 11:39:09 09/05/2020 13:08:14 Screening for malignant neoplasm of cervix 946062008 Z12.4 Will follow up according to ASCCP guidelines . Declines STI testing. Menorrhagia 380653260 N9 2.0 Will access for anemia. Reviewed abnormal amount of bleeding to call and notify clinic. Reviewed options of cyclic progestero ne or Lysteda to help manage menses without being a contracept ronen. Patient declines options. 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 Reviewed image from 11/2017 and status remains stable. Reviewed biopsy needed for true diagnosis. Reviewed benefits of clobetasol use 2x/wk to help maintain current status, prevent continued loss of vaginal architectu re and avoid reoccurren ce of vaginal fissures. Gynecologi c examination 92844921 Z01.419 Pap w/ age-based appropriat e screening performed. Patient advised to contact office if result not received within the next 2 weeks. It was recommende d that patient perform BSE and schedule in-office evaluation for any concerns or abnormalit ies. Healthy lifestyle practices such as aerobic exercise at min. of 3-5x/wk for 30 min. each week was encouraged . The pt. was advised to return in one yr. for repeat exam and sooner if any health concerns. This encounter was charted in N# [id number]. She has another chart in [facility] #[id number]. Request for chart merge has been completed. This appointmen t was completed with history viewed on other [facility] chart. [id number] Rosa Maria Corado MD TCPA_OBGY N_MPT [address],[place] [address] [place] [address] 02/04/2021 14:19:03 02/04/2021 16:37:13 Uncertain viability of 953337233 O36.80X0 Patient has an LMP of 12/02/2021 and on exam today the CRL measured 8 weeks 5 days, which is consistent with her LMP and an EDC of 09/08/2021. Amenorrhea 13197747 N91. 2 Routine an tenatal care 422638886 Z34.91 Morning sickness 1124794 6 O21.9 Advanced m aternal age 456107140 O09.511 Patient counseled that women approachin g or beyond the age of 35 have a greater chance than younger women of having a baby with a chromosome abnormalit y. The patient was offered referral for genetic counseling and CVS or peripheral DNA testing. Pt would like to do cfDNA. [id number] Becka Bowers MD TCPA_FP_M [facility]AR[facility] [address] [place] [address] 02/20/2021 16:52:33 02/20/2021 17:49:36 97312661 Z33.1 12 WEEKS Paronychia of toe 298186 002 L03.039 RIGHT GREAT TOE Patient ne w to facility 4435096664 32170 Z76.89 [id number] JACKELIN RFANCHESKA METEOROLOGICAL EQUIPMENT REPAIRER TCPA_OBGY N_MPT [address],[place] [address] [place] [address] 03/05/2021 11:57:31 03/05/2021 12:42:51 Routine care 896464077 Z34.81 Patient seen at 13w2d for routine care. Patient reports she is feeling great. Long discussion about the COVID vaccine. Discussed the concern about COVID and Flu during . I also counseled on the risks of COVID during (increased risk of ICU admission, mechanical ventilatio n, ECMO, ) and the lack of data on the vaccine during . Side effects of the vaccine are typically self-limit ed and mild and include soreness at the injection site, fever, fatigue, and muscle and joint aches. There are relatively few contraindi cations to receiving the vaccine. Pt states she works from home and masks when out. 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 Pt refusing COVID and Flu vaccinatio n. PNV daily. Discussed continued use of Clobetasol cream vaginally 2x/wk. Will refer to [facility] for anatomy scan. RTC in 4 weeks. [place] moved to phase 1B of vaccine distributi on on 06/06. In [place], Phase 1B includes >=65 years old, or >=16 years old with one of the following comorbidit ies: , BMI>=30, diabetes, cancer, chronic kidney disease, COPD, heart conditions , sickle cell disease, and solid organ transplant . Therefore, qualifies for the COVID vaccine 1B group. I counseled on the mechanism of vaccine action of the two currently available Pfizer and Moderna vaccines (RNA vaccine). I also counseled on the risks of COVID during (increased risk of ICU admission, mechanical ventilatio n, ECMO, ) and the lack of data on the vaccine during . Side effects of the vaccine are typically self-limit ed and mild and include soreness at the injection site, fever, fatigue, and muscle and joint aches. There are relatively few contraindi cations to receiving the vaccine. Ultimately I counseled her that whether or not to receive the COVID vaccine is a personal decision in which we will support her regardless of her decision. If she does elect to receive the vaccine, she should still practice good hygiene and social distancing measures including hand washing and wearing a face mask. I also counseled her that there is no contraindi cation to the vaccine during breastfeed ing. Maternal antibodies are transmitte d in breast milk and protect breastfeed ing infants, so vaccinatio n during this time period may also be beneficial to the breastfeed ing as the vaccine is not available to those under 16. In [place], the vaccine should be provided free of charge regardless of insurance status (per the [facility] website). Locations that have received a shipment of the vaccine may be found at the [facility] website, although this is not a guarantee of vaccine availabili ty: https://ToVieFor /3ZTxut0wr [email or web address] 9SK14Su?u= https%3A%2 F%2Fwww.ds hs.state.[place]%2Fcor onavirus%2 Fimmunize% 2Fvaccine. aspx [id number] Becka Bowers MD TCPA_FP_M [facility] [address] [place] [address] 03/19/2021 14:14:44 03/19/2021 15:16:35 Acute sinusitis 83857904 J01.90 Productive cough 6507877 5 R05.9 [id number] Rosa Maria Corado MD TCPA_OBGY N_MPT [address],[place] [address] [place] [address] 04/08/2021 12:23:47 04/08/2021 13:23:52 Blood in urine 86115133 R31.9 [id number] Rosa Maria Corado MD TCPA_OBGY N_MPT [address] [address] 05/13/2021 09:30:42 05/13/2021 10:53:05 80797718 Z33.1 [id number] Rosa Maria Corado MD [facility]PA_OBGY N_MPT [address] [address] 06/10/2021 08:41:03 06/10/2021 11:10:09 Routine care 082226219 Z34.91 [id number] JACKELIN PRITCHARD METEOROLOGICAL EQUIPMENT REPAIRER TCPA_OBGY N_MPT [address] [address] 07/02/2021 09:28:32 07/02/2021 10:00:51 History of SARS-CoV-2 5381339927 77664785 Z86.16 Routine an tenatal care 488805044 Z34.81 TELEHEALTH - Patient seen at 30w2d for routine care. Patient with COVID s/s starting 06/29/21 with a neg at home test and positive result on 06/30/21. Pt reports feeling much better today. Continues having some congestion and coughing. Discussed OTC tx options. She has been uploading vitals and pulse ox on portal with all appropriat e readings. Reviewed strict ER warnings on when to seek care. Lots of FM - encouraged her to continue paying attention to movement and notify clinic if decreased. Reviewed FKCs to start at week 32. PTLPs reviewed. Will refer to [facility] for a growth scan given history of COVID. RTC 2 weeks. [id number] Rosa Maria Corado MD TCPA_OBGY N_MPT [address] [address] 07/15/2021 10:45:32 07/15/2021 12:11:20 Routine care 734325250 Z34.91 Blood in urine 69964596 R31.9 Hemorrhoids 86482844 K64 .9 Strategies to decrease hemorrhoid s reviewed. Stool softeners, high fiber foods, magnesium, witch marlon and sitz baths [id number] JACKELIN PRITCHARD METEOROLOGICAL EQUIPMENT REPAIRER TCPA_OBGY N_MPT [address] [address] 07/31/2021 10:23:30 07/31/2021 11:44:36 Routine care 592962325 Z34.81 TELEHEALTH - Patient seen at 34w2d for routine care. Patient is doing well. PTLPs and FKCs reviewed. Continues having hemorrhoid issues. She has not changed diet or tried OTC stool softeners. Long discussion about need to change behaviors as this is worsening hemorrhoid s. Discussed limited options of medication s during as no steroids can be used at this time prior to delivery. Reviewed mild anemia and use of OTC Iron - she has not been on supplement al iron. Discussed type and dosing - pt to start this week. RTC 2 weeks for growth scan and GBS collection . Hemorrhoids 43526211 K64 .9 [id number] Rosa Maria Corado MD [facility]PA_OBGY N_MPT [address] [address] 08/22/2021 16:24:52 08/25/2021 16:06:09 Genital herpes simplex 95557106 A60.9 Hemorrhoids 46141610 K64 .9 Strategies to decrease hemorrhoid s reviewed. Stool softeners, high fiber foods, magnesium, witch marlon and sitz baths Routine an tenatal care 600611527 Z34.91 [id number] Rosa Maria Corado MD TCPA_OBGY N_MPT [address] [address] 08/29/2021 08:23:07 08/29/2021 11:28:55 [id number] Z33.1 [id number] Rosa Maria Corado MD [facility]PA_OBGY N_MPT [address] [address] 09/05/2021 15:12:39 09/05/2021 16:29:05 Nausea and vomiting 90380290 R11.2 Hemorrhoids 51998244 K64 .9 Strategies to decrease hemorrhoid s reviewed. Stool softeners, high fiber foods, magnesium, witch marlon and sitz baths Food poisoning 72184488 A05.9 [id number] Rosa Maria Corado MD [facility]OBGY N_MPT [address] [address] 09/11/2021 11:01:23 09/11/2021 11:30:26 Post-term 47355595 O48.0 [id number] Rosa Maria Corado MD TCPA_OBGY N_MPT [address] [address] 09/15/2021 09:35:14 09/15/2021 11:52:38 Post-term 33263309 O48.0 [id number] JACKELIN PRITCHARD METEOROLOGICAL EQUIPMENT REPAIRER TCPA_OBGY N_MPT [address] [address] 09/18/2021 08:33:32 09/18/2021 11:34:49 Routine care 070517915 Z34.83 Patient seen at 41w3d for post-date care. Patient reports she is 'feeling great,' denies cramping, ctx or VB. Had mucus discharge this morning. Appropriat e FKCs. She allowed a cervical exam today with membrane sweep. Minimal membrane sweep obtained due to patient discomfort . Patient tearful and stating she would prefer to not have an IOL because she believes a baby chooses their date. testing completed: CHALO 3.36cm, NST Reactive and reassuring NST performed. 130bpm baseline with moderate variabilit y, accels noted, no decels, no contractio ns. At 0830 recommenda tions given to proceed to hospital immediatel y for IOL due to gestation age and CHALO. Patient tearful and asking to have time in clinic room to call her family. Returned to patient and proceeded to have another 20 minute conversati on about the concerns of CHALO findings and risk to fetus given non-reassu ring CHALO measuremen t. Risks reviewed including IUFD. At 0915 - recommenda tions to go to hospital at this time for delivery again reiterated . Patient asking for more time to discuss with family. 1008 - Dr. Corado called my CAR [facility]. 11 minute conversati on occurred between patient and MD, risks of not doing IOL at this time again reviewed with patient. Pt agrees to go to the hospital in one hour after she is able to go eat breakfast. agrees with plan. Patient leaving clinic just before 1030. Hospital staff called by Dr. Corado for report. Post-term [id number] O48.0 [id number] Rosa Maria Corado MD [facility]OBGY N_MPT [address] [place] [address] 11/04/2021 10:26:26 11/04/2021 11:32:14 state [id number] Z39.2 The pt is doing well w/ weight loss, s/s of pp depression were reviewed and the Edinberg depression scale was done the pt was encouraged to contact the office if she has any symptoms, the pt may resume normal sexual and exercise activity. Pt counseled that ideal spacing between is 18 months to reduce risk to next . Continue PNV x 18 months. Call is dysparunia . EDS score is zero Dyspareunia [id number] N94 .10 Patient has a history of dyspareuni a after the first baby but not the second. She went to pelvic floor physical therapy after the second baby. I encouraged her to restart this. [id number] Becka Bowers MD [facility]_FP_M [facility] [address] [place] [address] 04/09/2022 13:43:06 04/09/2022 15:59:20 Cough [id number] R05.9 14 days in and improving -REASSURAN CE DISCUSSED FLUTICASON E NASAL SPRAY AND OR 24 HOUR ANTIHISTAM INE TO HELP W SXS BUT PT DECLINES DUE TO BREAST FEEDING ADVISED RETURN IF NOT CONTINUING TO IMPROVE OR IS WORSENING Allergic rhinitis 553339 04 J30.9 discussed in length [id number] Phyllis Dorado MD [facility]_FM_A RBOR_EC [address],[place], [facility] [address] [place] [address] 04/22/2022 19:25:33 04/22/2022 20:01:55 Cough [id number] R05.9 Chest X-ray: normal chest. Atypical chest pain 1025 10155 R07.89 On PE there is no TTP of the chest wall or rib cageThere is no abnormal skin changesNo sign of Pneumonia on Chest X-rayLungs are CTAB and Sp02 is WNL and Vitals are non-concer ningGiven unknown etiology and patient concern I believe further work-up in the ED is warrantedI am concerned for potential PE.Patient agrees to go to the ED now. [id number] Becka Bowers MD [facility]FP_M [facility] [address] [place] [address] 05/05/2022 11:57:11 05/05/2022 13:06:40 Influenza vaccination declined [id number] Z28.21 Dysfunctio n of eustachian tube 64741126 H69.91 POST URI -SAFE IN BREASTFEED ING DISCUSSED W PT [id number] JACKELIN VILLALOBOSUCET METEOROLOGICAL EQUIPMENT REPAIRER [facility] [address] [place] [address] 01/27/2023 08:31:31 01/27/2023 09:08:26 Gynecologic examination 27382389 Z01.419 Pap w/ age-based appropriat e screening performed. Patient advised to contact office if result not received within the next 2 weeks. It was recommende d that patient perform BSE and schedule in-office evaluation for any concerns or abnormalit ies. Healthy lifestyle practices such as aerobic exercise at min. of 3-5x/wk for 30 min. each week was encouraged . The pt. was advised to return in one yr. for repeat exam and sooner if any health concerns. Screening for malignant neoplasm of cervix 912575398 Z12.4 Pap performed per patient request. Will follow up according to ASCCP guidelines . Declines STI testing. Genital li mascorro sclerosus 364203037 L90.0 Pt entirely asymptomat ic to LS. This is presumed LS without biopsy confirmati on. Reviewed image from 11/2017 and worsening agglutinat ion noted above urethra. Reviewed need for clobetasol to manage LS given its potential progressiv e nature. Will restart Clobetasol twice weekly to prevent continued loss of vaginal architectu re and avoid reoccurren ce of vaginal fissures. Reviewed benefits of Q6mos visits for LS. RTC 6 months for follow up. Irregular periods 257137 07 N92.6 Suspect irregulari ty is based on continued nursing and not complete return of menstrual function. Reviewed irregular ovulatory function while nursing. Offered serum HCG to confirm no and full evaluation for irregular menses including labs and US. Pt deferred. Will continue to observe but if no menses for 3 months, pt to return to clinic for further evaluation . support 40 [id number] Z39.1 [id number] JACKELIN PRITCHARD METEOROLOGICAL EQUIPMENT REPAIRER [facility] [address] [place] [address] 10/14/2023 11:05:07 10/14/2023 12:20:33 Genital lichen sclerosus 209346370 L90.0 Pt entirely asymptomat ic to LS. This is presumed LS without biopsy confirmati on. Reviewed image from 11/2017 and worsening agglutinat ion noted above urethra. Reviewed need for clobetasol to manage LS given its potential progressiv e nature. Will restart consistent use of Clobetasol twice weekly to prevent continued loss of vaginal architectu re and avoid reoccurren ce of vaginal fissures. Reviewed benefits of Q6mos visits for LS. RTC 6 months for follow up. 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 Lengthy discussion regarding mental illness. Discussed options of treating anxiety with a medication as needed or with daily medication . Will start her on a low dose Lexapro 10mg daily. Advised to take this once a day. Discussed possible side effects of this medication . Advised not to stop this medication abruptly, as we usually like to taper off. Reviewed onset of symptom management can be 2 weeks and full effect can take up to 6 weeks. Pt understand s the Black Box Warnings of medication , watching very closely first few weeks especially for s/s of suicidal ideation/t endencies. Discussed the importance of daily exercise and discussed healthy stress management techniques , including deep breathing, meditation and yoga. Discussed that the combinatio n of therapy and medication is the best treatment for anxiety. Pt. verbalized understand ing. Fatigue 10676136 R53.83 Exhaustion 35248595 O26. 819 Health Concerns Section Related Observation LastModified by Organization Detai ls LastModified Time None Recorded Concern Status LastModified by Organization Details LastModified Time None Recorded SDOH Concern Status LastModified by Organization Detai ls LastModified Time None Recorded Advance Directives Directive None Recorded Payers Insurance Date Sequence Insurance Name Policy Number Policy Johnson Covered Member ID Johnson Member ID Guarantor Name 09/05/2020 1 [place] [id number] Christopher Gibbs [id number] Crystal Truebassamt Bernie 09/05/2020 1 [place] [id number] Christopher Gibbs [id number] Crystal Truehart Bernie 09/05/2020 1 [place] [id number] Christopher Gibbs [id number] Crystal Truehart Bernie 09/05/2020 2 [place] [id number] Christopher Gibbs [id number] Crystal Truehart Bernie 09/05/2020 1 [place] [id number] Christopher Gibbs [id number] Crystal Truehart Bernie 04/09/2022 2 [place] [id number] Laura Truehart Bernie [id number] Crystal Truehart Bernie 09/05/2020 2 [place] [id number] Christopher Gibbs [id number] Crystal Truehart Bernie 11/28/2021 1 [place] [id number] Christopher Gibbs [id number] Crystal Truebassamt Bernie 09/05/2020 1 [place] [id number] Christopher Gibbs [id number] Crystal Truehart Bernie 09/05/2020 1 [place] [id number] Christopher Gibbs [id number] Crystal Truehart Bernie 04/09/2022 1 [place] [facility] (HMO) Crystal Truehart Bernie [id number] Crystal Truehart Bernie 04/22/2022 1 [place] [id number] Christopher Gibbs [id number] Crystal Truehart Bernie 04/22/2022 1 [place] [id number] Crystal T Bernie [id number] Crystal Truehart Bernie 11/03/2021 1 [place] [id number] Christopher Bernie [id number] Crystal Truehart Bernie 12/02/2021 1 [place] [id number] Christopher Gibbs [id number] Crystal Truehart Bernie 11/19/2021 1 [place] [id number] Christopher Gibbs [id number] Crystal Truehart Bernie 04/09/2022 1 [place] [id number] Crystal R Trueheart Bernie [id number] Crystal Truehart Bernie 09/22/2023 SLIDING FEE SCHEDULE - DISCOUNT Crystal Truehart Bernie 10/14/2023 1 *SELF PAY* Cr ystal Truehart Bernie 01/24/2024 1 [place] [id number] Crystal Truehart Bernie [id number] Crystal Truehart Bernie 04/22/2022 1 [place] [id number] Christopher Gibbs [id number] Crystal Truehart Bernie 05/04/2022 1 [place] [id number] Christopher Gibbs [id number] 9423 Crystal Truehart Bernie 09/22/2023 1 [place] [id number] Crystal Truehart Bernie [id number] 9423 Crystal Truehart Bernie 04/09/2022 1 [facility] - [facility] Crystal Truehart Bernie [id number] Crystal Truehart Bernie 04/09/2022 1 [facility] - PHCS Crystal Truehart Bernie [id number] Crystal Truehart Bernie 04/09/2022 1 [place] [id number] Crystal Truehart [id number] Laura Gibbs 04/09/2022 1 [facility] [place] [id number] Laura Gibbs [id number] Laura Gibbs 04/09/2022 2 [facility] Laura Gibbs [id number] Laura Gibbs Notes Date Note Type Note Provider Name and Address Organization Details Recorded Time 04/09/2022 text/html pt in vv for c/o being sick6 month old baby girl and 2 other kidshusband got a virus and extreme diarrhea -then she got weird gas and diarrhea . then baby and kids got fever and had it for a daytoday is 14 daysfever-no / had chills yesterday , body aches and sweatingfeels body temp swingeating and drinking okyesterday had no appetiteate small amountsno diarrhea only had a couple of daystested neg covidno sore throatfeels achy; mucous clear this am --SYMPTOMS COME AND GObody aches and stiff neck BUT NOW BETTERWONDERS IF ALLERGIES Macy Robles NP [address] [facility], [address], [place], [address], [facility] 04/09/2022 15:52:16 04/22/2022 text/html 36 yo F presents for 1 month of cough and nasal congestionShe has started to have left lower rib pain when breathing or when coughing today. The pain is sharp, No trauma.She has noticed no changes in the surrounding skin.She denies SOBPatient is very concerned with the pain and she has never experienced anything like this before.She hasn't had a fever for a week.She denies fever, body aches chills, sore throat, SOB, abdominal pain, n/v/d Chaitanya GARCIA [address] [facility], [address], [place], [address], [facility] 04/25/2022 09:23:36 05/05/2022 text/html X1 week with rig ht ear PAIN POPPING AND INABILITY TO HEAR FULLY POST 3-4 WEEK URI RESOLVEDWHEN yawns and cracklesUSING hot compress; no dc no pain and is feels like under waterNO FEVER /COUGH ; + ALLERGIES NOT USING ANY ANTIHISTAMINES OTC DUE TO - Macy Robles, CAR [employer]OT [address] [facility], [address], [place], [address], [facility] 05/06/2022 22:21:08 01/27/2023 text/html 37 yo establishe d patient of Dr. Corado here for WWE. Has had three cycles since her last child was born 08/2021. Currently 10 days late for menses. Has taken multiple UPTs at home and all negative. Still nursing her child thorughout the day/night. Parter with vasectomy and a cleared post-op semen analysis. Last pap 08/2020 - NILM, HPV Not detected. No abn pap in past. Cousin just got dx with cervical cancer and had full hyst. Pt asking for pap todayPartner w/ vasectomyPresumed Lichen Sclerosus - not using Clobetasol. No symptoms. JACKELIN FRANCHESKA METEOROLOGICAL EQUIPMENT REPAIRER [address] [facility], [address], [place], [address], [facility] 01/27/2023 11:43:13 10/14/2023 text/html 37 yo rafaele d pt was scheduled as a Lichen sclerosis follow up but would like to discuss multiple other concerns. Pt reports using clobetasol a couple times a month but isn't doing twice weekly dosing as Rx'ed. Pt reports she thinks her hormones are off because she is chronically fatigued and exhausted. Reports normaly monthly menses. Started menses today. Healthy eating behaviors.Routinely exercising - ran daily for one month, now just routinely exercising. Mostly cardio, some weight lifting. Disappointed with minimal weight loss.Stopped ETOH for may and then again september 06. Falling asleep during bedtime routine with kids, then again on the couch. Ultimately in bed by about 10. Nocturia x 1 nightly. Kids waking up at 6 am. Pt reports lots of home stress. children are at hard ages, sarika her 4 yo. Her hasn't been getting paid right and their insurance wasn't getting paid until recently. getting colonoscopy tomorrow for hemorrhoids and fissure in skin pt going to [place] and [place] for two months to get out of heat and see her family. She is thinking about maybe moving the whole family up there but is not sure. Her family is up there. In Laws are in [facility]. JACKELIN PRITCHARD METEOROLOGICAL EQUIPMENT REPAIRER [address] [facility], [address], [place], [address], [place] 10/14/2023 14:10:20 Care Team Name Role Member ID Specialty Address Phone CONNIE HAMILTON MD Aircraft Structural Design Engineer [id number] [facility] [address], [place], [place] MARGARET ASHLEY MD Rater Associate [phone] ,[address], [place], [place] IDALMIS COLLAZO MD Primary Care Provider [phone] ,[facility] [address], [place], [place] OBGyn Episode Ob Episode Information Episode Created Date Number of Fetuses Patient Bloodtype Patient rh Status Prepregnancy Weight lbs Domestic Partner Domestic Partner Phone Father Name Residential Gas Heat Technician Status 02/07/20 16 1 O Positive CLOSED Fetus Data First Name Last Name Admitted to NICU Weight (g) Sex Living Outcome Pediatric Complications Fetus ID Race Codes Race Delivery Type 14230 Problems Problem Notes Christopher (tdap done)Flu shot do ne. 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 GBS neg. Screening for disorder 818818968 Patient decline s all aneuploidy screening; MSAFP WNLnormal tarhsa scan, post placentaa placental cyst was seen so f/u us at 26 weeks shows EFW 52% Anemia of 55122056 06/02/16: Hgb 10.9/Hct 32.8, started on iron Sathya Calculation Initial Sathya Date Initial Exam Date Initial Exam Provider Initial Ultrasound Date Last Menstrual Period Date Ultra Sound Weeks Gestation 09/06/2016 02/07/2016 12/01/2015 0 Eighteen To Twenty Week Sathya Update Ultra Sound Date Fundal Height At Umbil Quickening Date Ultra Sound Latest Weeks Gestation Final Sathya Confirmed By Final Sathya Confirmed Date Final Sathya Date Ultra Sound Latest Days Gestation 0 09/07/19 17 0 Pre-maría Flowsheet Flowsheet Date 02/07/2016 Cheek Score Blood Edema Fundus Height Fundus Units Glucose Ketones Leukocytes Nitrite Labor Signs Protein Cervic Dilation Cervic Effacement Cervic Station Type Weight in lbs Pre/Post Dialysis Refused 142.286410938216 BP Diastolic BP Location Tested BP Systolic BP Type 70 R arm 121 sitting Fetus Heart Rate Present A 174 Fetus Movement Comments Flowsheet Date 03/13/2016 Cheek Score Blood Edema Fundus Height Fundus Units Glucose Ketones Leukocytes Nitrite Labor Signs Protein Cervic Dilation Cervic Effacement Cervic Station Type Weight in lbs Pre/Post Dialysis Refused 146.855433477956 BP Diastolic BP Location Tested BP Systolic BP Type 69 R arm 105 sitting Fetus Heart Rate Present Fetus Movement A No Comments Has RL pain; no spotting. wi ll start exercising, patient declined aneuploidy screening, flu shot Flowsheet Date 04/09/2016 Cheek Score Blood Edema Fundus Height Fundus Units Glucose Ketones Leukocytes Nitrite Labor Signs Protein Cervic Dilation Cervic Effacement Cervic Station none neg Type Weight in lbs Pre/Post Dialysis Refused 152.28034426110 BP Diastolic BP Location Tested BP Systolic BP Type 77 R arm 120 sitting Fetus Heart Rate Present A 150 Present Fetus Movement A No Comments Pt has RL pain; no FM, she i s better w/ the hemorrhoids; no mood swings. 'Anatomy scan is next week. MSAFP today. Flowsheet Date 05/05/2016 Cheek Score Blood Edema Fundus Height Fundus Units Glucose Ketones Leukocytes Nitrite Labor Signs Protein Cervic Dilation Cervic Effacement Cervic Station 22 Type Weight in lbs Pre/Post Dialysis Refused 158.374971469917 BP Diastolic BP Location Tested BP Systolic BP Type 84 R arm 121 sitting Fetus Heart Rate Present A 150 Present Fetus Movement A Yes Comments Pt is working out, she does feel the baby move. PTLP. Travel precautions reviewed. Flowsheet Date 06/02/2016 Cheek Score Blood Edema Fundus Height Fundus Units Glucose Ketones Leukocytes Nitrite Labor Signs Protein Cervic Dilation Cervic Effacement Cervic Station 28 none neg Type Weight in lbs Pre/Post Dialysis Refused 168.742250506371 BP Diastolic BP Location Tested BP Systolic BP Type 74 R arm 120 sitting Fetus Heart Rate Present A 145 Present Fetus Movement A Yes Comments She states that she loves th is part of . She feels normal FM. Sleep modifications reviewed. Back stretches ACOG missive given to the pt. Restart exercise. Start lidocaine and sitz baths. Flowsheet Date 06/23/2016 Cheek Score Blood Edema Fundus Height Fundus Units Glucose Ketones Leukocytes Nitrite Labor Signs Protein Cervic Dilation Cervic Effacement Cervic Station 30 none neg Type Weight in lbs Pre/Post Dialysis Refused 169.844544939904 BP Diastolic BP Location Tested BP Systolic BP Type 78 R arm 125 sitting Fetus Heart Rate Present A 150 Present Fetus Movement A Yes Comments Pt reports normal FM; she colon s some back pain. She got TDAP today. Pt given ACOG missive back pain of . Ok to see chiropractor. Flowsheet Date 07/09/2016 Cheek Score Blood Edema Fundus Height Fundus Units Glucose Ketones Leukocytes Nitrite Labor Signs Protein Cervic Dilation Cervic Effacement Cervic Station 32.5 none neg Type Weight in lbs Pre/Post Dialysis Refused 173.473923088753 BP Diastolic BP Location Tested BP Systolic BP Type 75 L arm 125 sitting Fetus Heart Rate Present A 150 Present Fetus Movement A Yes Comments Pt states that she feels goo d. Normal FM, ALMA, Perineal massage reviewed, kick counts reviewed, start Colace. Flowsheet Date 07/23/2016 Cheek Score Blood Edema Fundus Height Fundus Units Glucose Ketones Leukocytes Nitrite Labor Signs Protein Cervic Dilation Cervic Effacement Cervic Station 33 none neg Type Weight in lbs Pre/Post Dialysis Refused 175.82071106865 BP Diastolic BP Location Tested BP Systolic BP Type 77 R arm 123 sitting Fetus Heart Rate Present A 150 Present Fetus Movement A Yes Comments Pt reports normal , cre ature comforts reviewed. PTLP,ALMA Flowsheet Date 08/04/2016 Cheek Score Blood Edema Fundus Height Fundus Units Glucose Ketones Leukocytes Nitrite Labor Signs Protein Cervic Dilation Cervic Effacement Cervic Station 35 Type Weight in lbs Pre/Post Dialysis Refused 176.522432987506 BP Diastolic BP Location Tested BP Systolic BP Type 81 R arm 122 sitting Fetus Heart Rate Present A 150 Fetus Movement Comments GBS done, vtx confirmed, EFW 19%, AC is < 10%, will us again in 2 weeks, JOANN is 11.52, BPP 8/8. Strict ALMA, PTLP, Will start valtrex suppression at 36 weeks. Flowsheet Date 08/12/2016 Cheek Score Blood Edema Fundus Height Fundus Units Glucose Ketones Leukocytes Nitrite Labor Signs Protein Cervic Dilation Cervic Effacement Cervic Station none 36 none none neg Type Weight in lbs Pre/Post Dialysis Refused 177.589270629858 BP Diastolic BP Location Tested BP Systolic BP Type 67 L arm 101 sitting Fetus Heart Rate Present A 156 Present Fetus Movement A Yes Comments the patient presents at 36 w eeks and 3 days for care. She is doing well. She has no complaints today. Follow up in 1 week. She is picking up her Valtrex today for HSV suppression. Flowsheet Date 08/17/2016 Cheek Score Blood Edema Fundus Height Fundus Units Glucose Ketones Leukocytes Nitrite Labor Signs Protein Cervic Dilation Cervic Effacement Cervic Station none neg 0cm 20% -4 Type Weight in lbs Pre/Post Dialysis Refused 179.688234377440 BP Diastolic BP Location Tested BP Systolic BP Type 80 R arm 122 sitting Fetus Heart Rate Present A 150 Present Fetus Movement A Yes Comments She has a few contractions. The baby is moving well. US shows fetus at 34%, CHALO is wnl. LP/ALMA Flowsheet Date 08/25/2016 Cheek Score Blood Edema Fundus Height Fundus Units Glucose Ketones Leukocytes Nitrite Labor Signs Protein Cervic Dilation Cervic Effacement Cervic Station Type Weight in lbs Pre/Post Dialysis Refused 180.832665723871 BP Diastolic BP Location Tested BP Systolic BP Type 76 R arm 112 sitting Fetus Heart Rate Present A Present Fetus Movement A Yes Comments Pt reports some cramping tod ay, ,it seems more intense with walking for 2-3 hours (it was leasurly walking); the baby is moving a lot. NST shows category 1 tracing, there was one small variable an CHALO was done showed 9.88. BPP was 10 out of 10. Excellent interval growth. LP,ALMA Flowsheet Date 09/03/2016 Cheek Score Blood Edema Fundus Height Fundus Units Glucose Ketones Leukocytes Nitrite Labor Signs Protein Cervic Dilation Cervic Effacement Cervic Station none neg 1cm 30% -3 Type Weight in lbs Pre/Post Dialysis Refused 184.900788973859 BP Diastolic BP Location Tested BP Systolic BP Type 77 L arm 119 sitting Fetus Heart Rate Present A 145 Present Fetus Movement A Yes Comments Pt reports normal FM, contin ue ALMA, LP Flowsheet Date 09/07/2016 Cheek Score Blood Edema Fundus Height Fundus Units Glucose Ketones Leukocytes Nitrite Labor Signs Protein Cervic Dilation Cervic Effacement Cervic Station none neg 1cm 50% -3 Type Weight in lbs Pre/Post Dialysis Refused 185.092641140663 BP Diastolic BP Location Tested BP Systolic BP Type 84 R arm 131 sitting Fetus Heart Rate Present A Present Fetus Movement A Yes Comments Borderline blood pressure no prerna, will have patient follow up in 48 hours. Patient feels great and reports normal movement. NST is category 1, CHALO is 8. PEP, PTLP Flowsheet Date 09/10/2016 Cheek Score Blood Edema Fundus Height Fundus Units Glucose Ketones Leukocytes Nitrite Labor Signs Protein Cervic Dilation Cervic Effacement Cervic Station Type Weight in lbs Pre/Post Dialysis Refused 184.360244482640 BP Diastolic BP Location Tested BP Systolic BP Type 83 R arm 136 sitting 81 R arm 133 sitting Fetus Heart Rate Present A 140 Present Fetus Movement A Yes Comments Patient again has borderline blood pressure noted. Serial blood pressures are all normal. Patient was given information about signs and symptoms of preeclampsia. The patient does not have any signs today nor has she gained weight nor does she have protein in her urine. We'll continue this follow-up. NST shows category 1 and CHALO is 8.6. Continue very strict kick counts and preeclampsia precautions. Menstrual History Last Menstrual Date Menses Monthly On Bcp Conception Prior Menses Frequency Hcg Plus Date Menarche Onset Age 0712/01/2015 Delivery Information Delivery Date Delivery Type Labor Anesthesia Weeks Gestation Incision Type Labor Labor Length Hrs Delivered By Post Complications Tubal Sterilization Discharge Date Comments 7 41 Discharge Information Feeding Method Contraceptive Method Maternal HG B and HCT Levels Ob Episode Information Episode Created Date Number of Fetuses Patient Bloodtype Patient rh Status Prepregnancy Weight lbs Domestic Partner Domestic Partner Phone Father Name Residential Gas Heat Technician Status 02/11/20 21 1 O Positive CLOSED Fetus Data First Name Last Name Admitted to NICU Weight (g) Sex Living Outcome Pediatric Complications Fetus ID Race Codes Race Delivery Type 09484 Problems Problem Notes Christopher (tdap done), AXEL Hernandez (kids are unvaccinated) Baby girl!! DATED by LMP and 8 week usCOVID and Flu vaccination counseling completed 03/05/21 - pt REFUSES`` all vaccines - she is wearing her mask. 2nd trim: no DM, mild anemia (on iron)3rd trim: RPR & HIV neg., mild anemia (sl. better) note - use toradol for the first 24 hours instead of ibuprofen GBS negative 08/22/2021 Problem Name Start Date End Date Resolution Snomed Code Not e Hemorrhoids [id number] wants to use pramazone pp - called in at 37 weeks for her to use pp Acute COVID-19 [id number] dx a t 30 week, declined MAB tx. 32 weeks 62% 36 week 49% screening [id number] O positive // antibody neg // cbc wnl // RPR negative // hepatitis B negative // rubella immune // HIV negative // hepatitis C negative // TSH 1.88 // gonorrhea and chlamydia are negative // no UTI Screening for disorder [id number] 05 cfDNA WNL, XXnormal tarsha scan, anterior placenta Multigravida [id number] september a , unsure about control.2016 w/ 3rd deg [id number] , no complication, delivered by AXEL Isbell - unmedicated and she does NOT want to do that again - so epidural. She said it was barbaric, hideous is another word that comes to mind. Herpesvirus infection [id number] bid valtrex suppression started at 37 weeks Sathya Calculation Initial Sathya Date Initial Exam Date Initial Exam Provider Initial Ultrasound Date Last Menstrual Period Date Ultra Sound Weeks Gestation 09/08/2021 02/04/2021 12/02/2020 0 Eighteen To Twenty Week Sathya Update Ultra Sound Date Fundal Height At Umbil Quickening Date Ultra Sound Latest Weeks Gestation Final Sathya Confirmed By Final Sathya Confirmed Date Final Sathya Date Ultra Sound Latest Days Gestation 0 [email or web address] 02/10/2021 09/09/19 22 0 Pre- Flowsheet Flowsheet Date 02/20/2021 Cheek Score Blood Edema Fundus Height Fundus Units Glucose Ketones Leukocytes Nitrite Labor Signs Protein Cervic Dilation Cervic Effacement Cervic Station Type Weight in lbs Pre/Post Dialysis Refused Weight 151.216735326150 BP Diastolic BP Location Tested BP Systolic BP Type Fetus Heart Rate Present Fetus Movement Comments Flowsheet Date 03/05/2021 Cheek Score Blood Edema Fundus Height Fundus Units Glucose Ketones Leukocytes Nitrite Labor Signs Protein Cervic Dilation Cervic Effacement Cervic Station neg none negative none neg Type Weight in lbs Pre/Post Dialysis Refused Weight 152.781551637544 BP Diastolic BP Location Tested BP Systolic BP Type 69 R arm 111 sitting Fetus Heart Rate Present A 156 Present Fetus Movement Comments Patient seen at 13w2d for [facility]. Patient reports she is feeling great. Long discussion about the COVID vaccine. Discussed the concern about COVID and Flu during . I also counseled on the risks of COVID during (increased risk of ICU admission, mechanical ventilation, ECMO, ) and the lack of data on the vaccine during . Side effects of the vaccine are typically self-limited and mild and include soreness at the injection site, fever, fatigue, and muscle and joint aches. There are relatively few contraindications to receiving the vaccine. Pt states she works from home and masks when out. 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 Pt refusing COVID and Flu vaccination. PNV daily. Discussed continued use of Clobetasol cream vaginally 2x/wk. Will refer to [facility] for anatomy scan. RTC in 4 weeks. Flowsheet Date 03/19/2021 Cheek Score Blood Edema Fundus Height Fundus Units Glucose Ketones Leukocytes Nitrite Labor Signs Protein Cervic Dilation Cervic Effacement Cervic Station Type Weight in lbs Pre/Post Dialysis Refused BP Diastolic BP Location Tested BP Systolic BP Type Fetus Heart Rate Present Fetus Movement Comments Flowsheet Date 04/08/2021 Cheek Score Blood Edema Fundus Height Fundus Units Glucose Ketones Leukocytes Nitrite Labor Signs Protein Cervic Dilation Cervic Effacement Cervic Station 1+ negative none neg Type Weight in lbs Pre/Post Dialysis Refused Weight 157.406346971019 BP Diastolic BP Location Tested BP Systolic BP Type 74 R arm 115 sitting Fetus Heart Rate Present A 150 Present Fetus Movement Comments The patient reports that she is doing well. She has terrible sinus infection issues, however. She is status post taking amoxicillin and feels better. She still continues to have a lot of congestion. Counseled her to start taking Mucinex to help break up the congestion. She was noted to have 1+ blood in her urine but has no other symptoms of a UTI or kidney stones. Cultures were sent. I again addressed vaccination during . The patient does not want to take any vaccines while she is . However, she is up-to-date on her Tdap and may consider that later in . Vitamins were reviewed. Exercise was encouraged. Flowsheet Date 05/13/2021 Cheek Score Blood Edema Fundus Height Fundus Units Glucose Ketones Leukocytes Nitrite Labor Signs Protein Cervic Dilation Cervic Effacement Cervic Station 23 none neg Type Weight in lbs Pre/Post Dialysis Refused Weight 160.627627374544 BP Diastolic BP Location Tested BP Systolic BP Type 62 R arm 105 sitting Fetus Heart Rate Present A 147 Present Fetus Movement Comments Patient reports normal movement. Upcoming sleep modifications were reviewed. She is gaining weight very appropriately. The patient was again counseled about the risks and benefits of the COVID vaccine, particularly in light of being and the expectations of an oncoming surg. She is appropriately wearing her mask and taking precautions. She simply does not want to be vaccinated and does warrant risks and benefits. She is well informed. I reviewed with her that if she becomes exposed to COVID that she is considered high-risk and we would want to offer treatment with monoclonal antibodies, so to please contact the office. Upcoming holiday travel precautions were also reviewed. Flowsheet Date 06/10/2021 Cheek Score Blood Edema Fundus Height Fundus Units Glucose Ketones Leukocytes Nitrite Labor Signs Protein Cervic Dilation Cervic Effacement Cervic Station 28 none none neg Type Weight in lbs Pre/Post Dialysis Refused Weight 171.239120158318 BP Diastolic BP Location Tested BP Systolic BP Type 73 R arm 114 sitting Fetus Heart Rate Present A 150s Present Fetus Movement A Yes Comments Patient reports normal movement. She is limiting all of her activities due to stage V of the COVID pandemic. She continues to decline all vaccines during . The patient also declines to have her vulva looked at again. There was evidence of possible lichenification of skin. She wants to wait until she is 35 weeks because she does not want to pursue any treatment at this point. Patient reports normal movement. She is taking appropriate COVID precautions and she continues to decline getting vaccinated for anything during . I did review that we were having flu outbreak as well. She is being extremely compliant with wearing mask as is her entire family. She was counseled to contact the clinic should she get COVID. labor precautions reviewed. Patient is unsure what she wants to do for control. Flowsheet Date 07/02/2021 Cheek Score Blood Edema Fundus Height Fundus Units Glucose Ketones Leukocytes Nitrite Labor Signs Protein Cervic Dilation Cervic Effacement Cervic Station none Other (see comments ) Type Weight in lbs Pre/Post Dialysis Refused BP Diastolic BP Location Tested BP Systolic BP Type 69 123 sitting Fetus Heart Rate Present Fetus Movement A Yes Comments TELEHEALTH - Patient seen at 30w2d for routine care. Patient with COVID s/s starting 06/29/21 with a neg at home test and positive result on 06/30/21. Pt reports feeling much better today. Continues having some congestion and coughing. Discussed OTC tx options. She has been uploading vitals and pulse ox on portal with all appropriate readings. Reviewed strict ER warnings on when to seek care. Lots of FM - encouraged her to continue paying attention to movement and notify clinic if decreased. Reviewed FKCs to start at week 32. PTLPs reviewed. Will refer to [facility] for a growth scan given history of COVID. RTC 2 weeks. Flowsheet Date 07/15/2021 Cheek Score Blood Edema Fundus Height Fundus Units Glucose Ketones Leukocytes Nitrite Labor Signs Protein Cervic Dilation Cervic Effacement Cervic Station 1+ 33 none none neg Type Weight in lbs Pre/Post Dialysis Refused Weight 177.449870868130 BP Diastolic BP Location Tested BP Systolic BP Type 75 R arm 117 sitting Fetus Heart Rate Present A 145 Present Fetus Movement A Yes Comments Growth scan done today becau se of patient's history of COVID during . Growth scan shows that the fetus in cephalic presentation and weighs 4 pounds 10 ounces, 62.2%. Overall the patient feels good except for hemorrhoids which are terrible. I reviewed what we can do to treat the hemorrhoids. But I do not want her to use steroids because she cannot use steroids for the remainder of the as this would cause significant thinning of the skin. She needs to treat this by working on stool softeners, high-fiber diet and using sitz baths to alleviate some of her symptoms. Patient also has some indigestion and strategies were reviewed for treating that as well. Patient also has some SPD symptoms which are associated with movement only. Exercises were send to the patient via the portal. Flowsheet Date 07/31/2021 Cheek Score Blood Edema Fundus Height Fundus Units Glucose Ketones Leukocytes Nitrite Labor Signs Protein Cervic Dilation Cervic Effacement Cervic Station Type Weight in lbs Pre/Post Dialysis Refused BP Diastolic BP Location Tested BP Systolic BP Type 83 114 Fetus Heart Rate Present A Present Fetus Movement A Yes Comments TELEHEALTH - Patient seen at 34w2d for routine care. Patient is doing well. PTLPs and FKCs reviewed. Continues having hemorrhoid issues. She has not changed diet or tried OTC stool softeners. Long discussion about need to change behaviors as this is worsening hemorrhoids. Discussed limited options of medications during as no steroids can be used at this time prior to delivery. Reviewed mild anemia and use of OTC Iron - she has not been on supplemental iron. Discussed type and dosing - pt to start this week. RTC 2 weeks for growth scan and GBS collection. Flowsheet Date 08/22/2021 Cheek Score Blood Edema Fundus Height Fundus Units Glucose Ketones Leukocytes Nitrite Labor Signs Protein Cervic Dilation Cervic Effacement Cervic Station none none neg Type Weight in lbs Pre/Post Dialysis Refused Weight 182.332168895614 BP Diastolic BP Location Tested BP Systolic BP Type 80 R arm 123 sitting Fetus Heart Rate Present A 150s Present Fetus Movement A Yes Comments Patient reports normal movement and frequent Pratt-Onofre contractions. Labor precautions were reviewed. Patient still has significant hemorrhoids and I reviewed that she can treat this with sitz baths until delivery and then Pramosone was called in so that she could start that . Group B strep was collected today. Valtrex suppression was sent over for patient to start and she was counseled to start this immediately as we are slightly late in getting this started by about a week. She was counseled on the need to take this twice a day. The patient had a 36 week growth scan which showed that the fetus was in cephalic presentation and measured at 49%. Patient is taking her iron as instructed. I did look at the patient's vulva and the bilateral labia are noted to be diminished. The underlying skin looks normal. There is no evidence of active lichenification. There is agglutination particularly on the left. Will adjust this further . Patient is to continue very strict kick counts. Flowsheet Date 08/29/2021 Cheek Score Blood Edema Fundus Height Fundus Units Glucose Ketones Leukocytes Nitrite Labor Signs Protein Cervic Dilation Cervic Effacement Cervic Station none none neg Type Weight in lbs Pre/Post Dialysis Refused Weight 182.333705409600 BP Diastolic BP Location Tested BP Systolic BP Type 76 R arm 112 sitting Fetus Heart Rate Present A 145 Present Fetus Movement A Yes Comments Patient reports normal movement. She has some contractions but nothing that is painful or in a pattern. Patient continues to decline induction of labor. She was counseled to continue labor precautions. Strict kick counts and to report any unusual new signs or symptoms. Flowsheet Date 09/05/2021 Cheek Score Blood Edema Fundus Height Fundus Units Glucose Ketones Leukocytes Nitrite Labor Signs Protein Cervic Dilation Cervic Effacement Cervic Station Type Weight in lbs Pre/Post Dialysis Refused BP Diastolic BP Location Tested BP Systolic BP Type 74 135 Fetus Heart Rate Present Fetus Movement Comments TELEHEALTH: She is has profo und diarrhea that just started this morning. No fever, just n/v/d. The patient has diarrhea that started earlier today. She denies any fever. She does have nausea and vomiting, but is most concerned about the diarrhea. She was not seen in the office because of these symptoms. It is notable that patient had COVID relatively recently, so unlikely that this is presentation of COVID. Patient reports that about 4 days ago she ate cheese and did not realize until after she ate the cheese that it was not pasteurized. She reports that these were [place] cheeses and could have been case of fresco. I did look up listeria outbreak in [place] and it looks like the only alarm is with panela cheese right now. However, she was counseled that if she began to have fevers, generalized malaise, muscle aches or neck pain in addition to the symptoms that she is having then we should consider possible listeria. I reviewed that we will get blood cultures if this becomes suspicious. I again offered the patient an induction date. She is not yet ready for that. She still has not picked up her anti-hemorrhoid medication because of the cost. We are going to keep trying to find something that it affordable. I have also referred her to a colorectal surgeon . Patient is to continue very strike kick counts, labor precautions and preeclampsia precautions. She was counseled to take her blood pressure on a daily basis. Flowsheet Date 09/11/2021 Cheek Score Blood Edema Fundus Height Fundus Units Glucose Ketones Leukocytes Nitrite Labor Signs Protein Cervic Dilation Cervic Effacement Cervic Station none none neg Type Weight in lbs Pre/Post Dialysis Refused Weight 181.344122617327 BP Diastolic BP Location Tested BP Systolic BP Type 86 128 sitting Fetus Heart Rate Present A 129 Present Fetus Movement A Yes Comments Patient presents for evaluat ion due to postdates. Biophysical profile done today, was 88 with an CHALO is 8.26. The patient reports normal movement. Overall she feels well and has no complaints. I reviewed with the patient that I would like for the baby to be induced by 41 weeks and 3 days at the latest and I have again offered induction immediately. The patient would like spontaneous onset of the labor. We are going to have her return on Wednesday and we will strip her membranes at that time and repeat biophysical profile. Patient was counseled to continue very strict kick counts, labor precautions and to report if she has any any new symptoms including itching. Flowsheet Date 09/15/2021 Cheek Score Blood Edema Fundus Height Fundus Units Glucose Ketones Leukocytes Nitrite Labor Signs Protein Cervic Dilation Cervic Effacement Cervic Station neg none neg 2cm 30% -3 Type Weight in lbs Pre/Post Dialysis Refused Weight 182.443824851599 BP Diastolic BP Location Tested BP Systolic BP Type 80 L arm 115 sitting Fetus Heart Rate Present A 150 Present Fetus Movement A Yes Comments The patient is now 41 weeks . She continues to decline induction of labor stripping of the membranes. The NST shows baseline in the 140s with excellent long-term and short-term variability. CHALO is 6.14. Overall, the status is reassuring. I reviewed with the patient my recommendation is to proceed with induction of labor as soon as she will let me induce her. I have reviewed the risk of dysmaturity and I have offered her natural ways to provoke labor. The patient continues to desire natural onset of labor. We will, therefore, see her in a few days. She is to continue very strict kick counts and labor precautions. Flowsheet Date 09/18/2021 Cheek Score Blood Edema Fundus Height Fundus Units Glucose Ketones Leukocytes Nitrite Labor Signs Protein Cervic Dilation Cervic Effacement Cervic Station none none none Negative none neg 2cm 30% - 3 Type Weight in lbs Pre/Post Dialysis Refused Weight 183.390645659336 BP Diastolic BP Location Tested BP Systolic BP Type 76 L arm 121 sitting Fetus Heart Rate Present A 144 Present Fetus Movement A Yes Comments Patient seen at 41w3d for po st-date care. Patient reports she is 'feeling great,' denies cramping, ctx or VB. Had mucus discharge this morning. Appropriate FKCs. She allowed a cervical exam today with membrane sweep. Minimal membrane sweep obtained due to patient discomfort. Patient tearful and stating she would prefer to not have an IOL because she believes a baby chooses their date. testing completed: CHALO 3.36cm, NST Reactive and reassuring NST performed. 130bpm baseline with moderate variability, accels noted, no decels, no contractions. At 0830 recommendations given to proceed to hospital immediately for IOL due to gestation age and CHALO. Patient tearful and asking to have time in clinic room to call her family. Returned to patient and proceeded to have another 20 minute conversation about the concerns of CHALO findings and risk to fetus given non-reassuring CHALO measurement. Risks reviewed including IUFD. At 0915 - recommendations to go to hospital at this time for delivery again reiterated. Patient asking for more time to discuss with family. 1008 - Dr. Corado called my [facility]. 11 minute conversation occurred between patient and MD, risks of not doing IOL at this time again reviewed with patient. Pt agrees to go to the hospital in one hour after she is able to go eat breakfast. MD agrees with plan. Patient leaving clinic just before 1030. Hospital staff called by Dr. Corado for report. Flowsheet Date 11/04/2021 Cheek Score Blood Edema Fundus Height Fundus Units Glucose Ketones Leukocytes Nitrite Labor Signs Protein Cervic Dilation Cervic Effacement Cervic Station Type Weight in lbs Pre/Post Dialysis Refused Weight 165.652514906622 BP Diastolic BP Location Tested BP Systolic BP Type 81 R arm 124 sitting Fetus Heart Rate Present Fetus Movement Comments Menstrual History Last Menstrual Date Menses Monthly On Bcp Conception Prior Menses Frequency Hcg Plus Date Menarche Onset Age 0712/02/2020 Delivery Information Delivery Date Delivery Type Labor Anesthesia Weeks Gestation Incision Type Labor Labor Length Hrs Delivered By Post Complications Tubal Sterilization Discharge Date Comments 2 41.3 Discharge Information Feeding Method Contraceptive Method Maternal HG B and HCT Levels Ob Episode Information Episode Created Date Number of Fetuses Patient Bloodtype Patient rh Status Prepregnancy Weight lbs Domestic Partner Domestic Partner Phone Father Name 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 H/H 11..1Patient TDAP [id number] TM labs (11/03/18) CBC, HIV, RPR all negvtx confirmed 74%11/22/2018 GBS negative Problem Name Start Date End Date Resolution Snomed Code Not e Screening for disorder [id number] 05 Declines all aneuploidy screening; msafp WNL; Posterior placenta, normal anatomy scan; XY yes cir Herpesvirus infection [id number] suppression started at 36 weeks Hemorrhoids 70579125 Routine care 07/25/2016 [id number] 003 O positive // antibody neg // cbc wnl (borderline anemia) // RPR negative // hepatitis B negative // rubella immune // HIV negative // hepatitis C negative // TSH 1.28 // gonorrhea and chlamydia are negative // no UTI Vitamin deficiency 21548831 1 7 in the 1st trim; 25 by 12 [id number] IU a day Multigravida [id number] w/ 3rd deg tearshe is considering 3 babies 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 - has gone to PT once and is waiting for insurance benefits Sathya Calculation Initial Sathya Date Initial Exam Date Initial Exam Provider Initial Ultrasound Date Last Menstrual Period Date Ultra Sound Weeks Gestation 12/26/2018 05/05/2018 03/05/2018 0 Eighteen To Twenty Week Sathya Update Ultra Sound Date Fundal Height At Umbil Quickening Date Ultra Sound Latest Weeks Gestation Final Sathya Confirmed By Final Sathya Confirmed Date Final Sathya Date Ultra Sound Latest Days Gestation 0 [email or web address] 05/09/2018 12/27/19 19 0 Pre- Flowsheet Flowsheet Date 06/16/2018 Cheek Score Blood Edema Fundus Height Fundus Units Glucose Ketones Leukocytes Nitrite Labor Signs Protein Cervic Dilation Cervic Effacement Cervic Station Type Weight in lbs Pre/Post Dialysis Refused Weight 145.460860750022 BP Diastolic BP Location Tested BP Systolic BP Type 78 R arm 113 sitting Fetus Heart Rate Present A 160 Present Fetus Movement Comments She still has breast tendern ess and fatigue and significant nausea (rare vomiting). will start PFPT. The need to take vitamin D reviewed. RL pain reviewed. Flowsheet Date 07/12/2018 Cheek Score Blood Edema Fundus Height Fundus Units Glucose Ketones Leukocytes Nitrite Labor Signs Protein Cervic Dilation Cervic Effacement Cervic Station none none neg Type Weight in lbs Pre/Post Dialysis Refused Weight 149.609672089110 BP Diastolic BP Location Tested BP Systolic BP Type 77 120 Fetus Heart Rate Present A 142 Present Fetus Movement Comments Pt reports that she is nause ated and is constipated. She is taking miralax. Stool softeners. Check MSAFP today and measles immune status. RL pain reviewed. Exercise modifications reviewed but she is not exercising a lot. Her anatomy scan is scheduled. Flowsheet Date 07/12/2018 Cheek Score Blood Edema Fundus Height Fundus Units Glucose Ketones Leukocytes Nitrite Labor Signs Protein Cervic Dilation Cervic Effacement Cervic Station none none neg Type Weight in lbs Pre/Post Dialysis Refused BP Diastolic BP Location Tested BP Systolic BP Type Fetus Heart Rate Present A Present Fetus Movement Comments Flowsheet Date 08/11/2018 Cheek Score Blood Edema Fundus Height Fundus Units Glucose Ketones Leukocytes Nitrite Labor Signs Protein Cervic Dilation Cervic Effacement Cervic Station neg 21 none negative none Negative neg Type Weight in lbs Pre/Post Dialysis Refused Weight 154.38294188710 BP Diastolic BP Location Tested BP Systolic BP Type 70 R arm 1090 sitting Fetus Heart Rate Present A 147 Present Fetus Movement Comments Normal anatomy scan, yes, ci r. PTLP and sleep modifications reviewed. She went to PFPT and it was a good experience, but she has only gone once. Will use lidocaine on that area of skin. Lots of insomnia. She was encouraged to exercise. Flowsheet Date 09/09/2018 Cheek Score Blood Edema Fundus Height Fundus Units Glucose Ketones Leukocytes Nitrite Labor Signs Protein Cervic Dilation Cervic Effacement Cervic Station 25 none none Negative neg Type Weight in lbs Pre/Post Dialysis Refused Weight 160.283051532629 BP Diastolic BP Location Tested BP Systolic BP Type 75 R arm 125 sitting Fetus Heart Rate Present A 145 Present Fetus Movement A Yes Comments Hemrrroids are bothering her . Use lidocaine and OTC preparation H to help with the hemorrhoids. Otherwise patient feels really great and is enjoying her . Sleep modifications were reviewed. Flowsheet Date 09/29/2018 Cheek Score Blood Edema Fundus Height Fundus Units Glucose Ketones Leukocytes Nitrite Labor Signs Protein Cervic Dilation Cervic Effacement Cervic Station 27 none none Negative neg Type Weight in lbs Pre/Post Dialysis Refused Weight 167.181090335275 BP Diastolic BP Location Tested BP Systolic BP Type 68 R arm 112 sitting Fetus Heart Rate Present A 146 Present Fetus Movement A Yes Comments She is not exercising well. She will start exercising. She is eating well but cut back stupid calories. She hasn't gone to PFPT. The hemorrhoids are better. Flowsheet Date 10/12/2018 Cheek Score Blood Edema Fundus Height Fundus Units Glucose Ketones Leukocytes Nitrite Labor Signs Protein Cervic Dilation Cervic Effacement Cervic Station none 30 cm none none none neg Type Weight in lbs Pre/Post Dialysis Refused With clothes 170.504375302408 BP Diastolic BP Location Tested BP Systolic BP Type 72 R arm 110 sitting Fetus Heart Rate Present A 143 Present Fetus Movement A Yes Comments The patient presents at 29 w eeks and 2 days today. She is asked to defer her Tdap until next visit. She has no complaints other than ligamentous discomfort. She notes good movement. She denies bleeding or other abnormality. Plan to follow-up in 2 weeks. Flowsheet Date 11/03/2018 Cheek Score Blood Edema Fundus Height Fundus Units Glucose Ketones Leukocytes Nitrite Labor Signs Protein Cervic Dilation Cervic Effacement Cervic Station none 33 cm none none Negative neg Type Weight in lbs Pre/Post Dialysis Refused Weight 174.920169423817 BP Diastolic BP Location Tested BP Systolic BP Type 79 R arm 118 sitting Fetus Heart Rate Present A 140 Present Fetus Movement A Yes Comments When carrying toddler, notes bilateral sharp pains in back and side, better positionally, Notices more towards end of day, no CVAT on exam today. Pain occuring x 2 weeks, Reports occasional BH ctx. Nothing regular or painful. Denies fluid leakage, bleeding or vaginal pressure. Does report ur. frequency. Due to c/o back pain (points to flank areas) and increased ur. freq. will send ur. culture even though UA in office is normal. Encouraged to get TdaP for the 's pertussis protection, she said she'll think about it. Declines again today. 3rd trimester labs drawn, reminded re: sleep recommendations, given hospital registration packet today. Also of note, patient's son had Parvovirus B19 (HFM) mildly at the end of September for a few days. Patient has remained and is asymptomatic, will test for antibodies today for her peace of mind. RTC 2 weeks. Flowsheet Date 11/22/2018 Cheek Score Blood Edema Fundus Height Fundus Units Glucose Ketones Leukocytes Nitrite Labor Signs Protein Cervic Dilation Cervic Effacement Cervic Station 37 none none neg Type Weight in lbs Pre/Post Dialysis Refused Weight 180.136900196034 BP Diastolic BP Location Tested BP Systolic BP Type 80 L arm 136 sitting Fetus Heart Rate Present A 152 Present Fetus Movement A Yes Comments Pt reports lots of FM. She f eels very . Start valtrex suppression. vtx confirmed 74%. ALMA, LP, GBS sent today. Flowsheet Date 11/29/2018 Cheek Score Blood Edema Fundus Height Fundus Units Glucose Ketones Leukocytes Nitrite Labor Signs Protein Cervic Dilation Cervic Effacement Cervic Station Type Weight in lbs Pre/Post Dialysis Refused Weight 181.483240922149 BP Diastolic BP Location Tested BP Systolic BP Type 79 R arm 115 sitting Fetus Heart Rate Present A 150s Present Fetus Movement A Yes Comments I reminded her to start the valtrex. Never had s/s of hand/foot/mouth. Baby is VERY active. Start perineal massage and stool softeners. 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 Flowsheet Date 12/06/2018 Cheek Score Blood Edema Fundus Height Fundus Units Glucose Ketones Leukocytes Nitrite Labor Signs Protein Cervic Dilation Cervic Effacement Cervic Station negative none Negative neg Type Weight in lbs Pre/Post Dialysis Refused With clothes 183.917299142801 BP Diastolic BP Location Tested BP Systolic BP Type 75 L arm 121 sitting Fetus Heart Rate Present A 137 Present Fetus Movement A Yes Comments Pt was seen at the hospital for headache, it did resolve w tylenol. She feels like she is ridiculously tired. She feels like she is clammy and sweaty. She has some myalgia, no fever. NO n/v/d. She has not been exposed to foods in the listeria recall. Likely has a virus. She was told to go home and sleep. NO other sick contacts. The baby is moving well. Flowsheet Date 12/13/2018 Cheek Score Blood Edema Fundus Height Fundus Units Glucose Ketones Leukocytes Nitrite Labor Signs Protein Cervic Dilation Cervic Effacement Cervic Station none none Negative neg Type Weight in lbs Pre/Post Dialysis Refused Weight 184.657932915674 BP Diastolic BP Location Tested BP Systolic BP Type 89 R arm 131 sitting 81 R arm 115 sitting Fetus Heart Rate Present A 142 Present Fetus Movement A Yes Comments Pt is tortured by . She does not want IOL yet. She reports lot of FM. PEP reviewed. Will do short term f/u BP check. Flowsheet Date 12/16/2018 Cheek Score Blood Edema Fundus Height Fundus Units Glucose Ketones Leukocytes Nitrite Labor Signs Protein Cervic Dilation Cervic Effacement Cervic Station none none Negative neg Type Weight in lbs Pre/Post Dialysis Refused With clothes 184.592645066715 BP Diastolic BP Location Tested BP Systolic BP Type 76 L arm 107 sitting Fetus Heart Rate Present A 141 Present Fetus Movement Comments Pt reports normal FM. She is here for BP check, she has no s/s of pre-e and no weight gain or elevated BP. She looks great. Continue ALMA, LP Flowsheet Date 12/20/2018 Cheek Score Blood Edema Fundus Height Fundus Units Glucose Ketones Leukocytes Nitrite Labor Signs Protein Cervic Dilation Cervic Effacement Cervic Station none none Negative neg Type Weight in lbs Pre/Post Dialysis Refused With clothes 185.094338305890 BP Diastolic BP Location Tested BP Systolic BP Type 81 L arm 123 sitting Fetus Heart Rate Present A 131 Present Fetus Movement A Yes Comments Pt feels like she is really SOB. CTA bilateral. It's more noticeable when she is laying down like I have no room to breath . Spo2 99% while walking. We did have pt lay down until she felt SOB and Sp02 also 99%, she is in no distress and in general she felt better. She declines IOL. She is not sleeping well and notices that the less sleep that she has the more tired she feels. Flowsheet Date 12/26/2018 Cheek Score Blood Edema Fundus Height Fundus Units Glucose Ketones Leukocytes Nitrite Labor Signs Protein Cervic Dilation Cervic Effacement Cervic Station none neg 2cm 30% -3 Type Weight in lbs Pre/Post Dialysis Refused Weight 186.467456250901 BP Diastolic BP Location Tested BP Systolic BP Type 82 R arm 139 sitting 60 L arm 122 sitting Fetus Heart Rate Present Fetus Movement Comments Pt declines IOL, SVE 1.5// -3. She reports normal FM, no . contractions. Ultrasound shows that the fetus continues to be at the 74th percentile. Normal fluid. I reviewed the benefits of induction of labor including a significant decrease risk of section. In addition her initial blood pressure was noted to be borderline. So we will do short-term follow-up because she is going past her due date as well as has borderline blood pressures. Preeclampsia precautions reviewed. Continue strict kick count Flowsheet Date 12/29/2018 Cheek Score Blood Edema Fundus Height Fundus Units Glucose Ketones Leukocytes Nitrite Labor Signs Protein Cervic Dilation Cervic Effacement Cervic Station none none neg 2cm 30% -4 Type Weight in lbs Pre/Post Dialysis Refused Weight 187.095370457891 BP Diastolic BP Location Tested BP Systolic BP Type 80 R arm 114 sitting Fetus Heart Rate Present A 142 Fetus Movement A Yes Comments The patient was counseled on the benefits and risk of induction of labor. The benefits including reduce risk of section and reduce risk of perineal trauma. The risk really involved primarily that the whole process will be prolonged and sometimes fatiguing. Given the size of the head I would prefer induction of labor as soon as patient consents. I have recommended induction of labor. The patient would prefer to wait so we will continue to watch her closely. The NST is category 1, CHALO is 8.6 and overall the status is reassuring. Menstrual History Last Menstrual Date Menses Monthly On Bcp Conception Prior Menses Frequency Hcg Plus Date Menarche Onset Age 1003/05/2018 Delivery Information Delivery Date Delivery Type Labor Anesthesia Weeks Gestation Incision Type Labor Labor Length Hrs Delivered By Post Complications Tubal Sterilization Discharge Date Comments 9 40.4 Discharge Information Feeding Method Contraceptive Method Maternal HG B and HCT Levels
--- OUTSIDE RECORDS SUMMARY | 2024-12-05 16:00 | XMS_ITS | Clinical Summary ---
Author Organization 175 [facility] Address [address] [place] [address] Phone Care Team Providers Care Independent Trader Name Role Phone Halle Grimaldo Primary Care Provider [phone] Allergies No known active allergies Encounters Date Type Department Care Team Description 11/20/2024 9:15 AM EDT Consult Orthopedic Surgery [facility] [address] [facility] [address] [place] [address] Francois Driver DPM Pain in toes of both feet (Primary Dx); Ingrowing nail from Last 3 Months Social History Tobacco Use Types Packs/Day Years Used Date Smoking Tobacco: Never Assessed Comments Unknown Sex and Gender Information Value Date Recorded Sex Assigned at Not on file Legal Sex Female 7:36 AM EDT Gender Identity Not on file Sexual Orientation Not on file Last Filed Vital Signs Vital Sign Reading Time Taken Comments Blood Pressure - - Pulse - - Temperature - - Respiratory Rate - - Oxygen Saturation - - Inhaled Oxygen Concentration - - Weight 70.3 kg (155 lb) 11/20/2024 9:07 AM EDT Height 175.3 cm (5' 9 ) 11/20/2024 9:07 AM EDT Body Mass Index 22.89 11/20/2024 9:07 AM EDT Plan of Treatment Health Maintenance Due Date Last Done Comments [...] 5 Years) and At-Risk Patients (6 to 49 Years) Aged Out No longer eligible b ased on patient's age to complete this topic RSV Immunization Patients Un wilian 20 months Aged Out No longer eligible b ased on patient's age to complete this topic Varicella Vaccines Aged Out No longer eligible based on patient's age to complete this topic Insurance [facility] Care Teams Independent Trader Relationship Specialty Start Date End Date Halle Grimaldo PA [address] [place] [address], [address] [place] [address] PCP - General 10/12/24
== END 2024-12-05 16:48 | disposition home or self-care (01) ==
LOC: HO.HMCH 15:34
DX: Z00.00 Encounter for general adult medical examination without abnormal findings (principal); F90.9 Attention-deficit hyperactivity disorder, unspecified type; F41.9 Anxiety disorder, unspecified; J30.2 Other seasonal allergic rhinitis; L60.0 Ingrowing nail; D22.9 Melanocytic nevi, unspecified; E78.00 Pure hypercholesterolemia, unspecified; K21.9 Gastro-esophageal reflux disease without esophagitis; L29.9 Pruritus, unspecified

== ENCOUNTER → 2024-12-05 15:33 | Outpatient (BNVA) | payer OTHER, SELFPAY | DX: Z00.00 Encounter for general adult medical examination without abnormal findings (principal); F90.9 Attention-deficit hyperactivity disorder, unspecified type; F41.9 Anxiety disorder, unspecified; J30.2 Other seasonal allergic rhinitis; L60.0 Ingrowing nail; D22.9 Melanocytic nevi, unspecified; E78.00 Pure hypercholesterolemia, unspecified; K21.9 Gastro-esophageal reflux disease without esophagitis; L29.9 Pruritus, unspecified; Z13.31 Encounter for screening for depression | CPT/HCPCS: 96127; 99395 ==

== ENCOUNTER 2025-03-19 08:53 | Outpatient (AMB) | payer OTHER, SELFPAY ==
--- NOTE | 2025-03-19 08:56 | A.OFFPC_ITS ---
Vital Signs 3 03/19/25 08:58 Height 5 ft 8.5 in Weight 152 lb 6 oz BMI 22.8 BP 110/64 Blood Pressure Location Lt brachial Position Sitting Pulse 84 Pulse Source Pulse Oximeter Temp 97.1 F Temp Source Temporal Artery Scan Pulse Oximetry (%) 97 Oxygen Delivery Method Room Air Intake Visit Reasons: 3 months Intake Note: Patient is here to follow up on GERD, Hypercholesterolemia, ADHD. Yoker Required: No Monotype Machinist: Not Required per policy Accompanied by: Self / Same As Patient Allergies Seasonal Allergies Allergy (Intermediate, Verified 03/19/25 09:06) congestion atomoxetine Adverse Reaction (Intermediate, Verified 03/19/25 09:06) Nausea and Vomiting Medication List - Last Reconciled 03/19/25 by Halle Grimaldo PA-C fluocinolone acetonide oil 0.01% (DermOtic Oil) 5 drps otic (ear) right BID 7 days Tobacco use date assessed: 03/19/25 Dental Screening Dental Screen Date: 12/05/24 HPI 3 months 2 HPI0 Details 39-year-old female with past medical his tory of ADHD, anxiety and seasonal allergies last seen 11/2024 coming in for follow up. Presenting with a recent tick bite. The tick bite was discovered last night, and the patient attempted to remove it, resulting in the tick's leg remaining embedded. The patient experienced panic upon discovering the tick and attempted removal without proper tools, leading to incomplete extraction. The patient reports heavy menstrual bleeding, which has been a recent development over the past year. She is currently working with her perforator operator to investigate underlying cause. An ultrasound was performed by the OB to rule out fibroids or cysts, with no significant findings reported. The patient suspects sleep apnea due to snoring and daytime fatigue, as suggested by her dentist. [facility] Surgical History No pertinent past surgical history Family History Paternal Grandfather Cancer Other Mental health disorder Substance use disorder Social History Housing: House Alcohol intake: current Alcohol intake frequency: a few times a month Patient Tobacco Use Status: Never used Tobacco e-Cigarette/Vaping Use: Never Used Second Hand Smoke Exposure: No service: No Current occupational status: unemployed Cognitive needs: No Hearing needs: No Vision needs: No Questionnaire Thrive Questionnaire Date Thrive assessed: 10/03/24 I am a: Patient What is your living situation today?: I have a steady place to live Within the past 12 months, did the food you bought not last and you didn't have the money to get more?: Never true Within the past 12 months, did you worry whether your food would run out before you got money to buy more?: Never true Do you have trouble paying for medicines?: No Do you have trouble getting transportation to medical appointments?: No Do you have trouble paying your heating and electricity bill?: No Do you have trouble taking care of your child, family member or friend?: No Do you have trouble with day-to-day activities such as bathing, preparing meals, shopping, managing finances, etc.?: No Are you currently unemployed and looking for a job?: No Are you interested in more education?: No Please select the resources that you would like help with: None Currently or been in a relationship where the following occur: No concerns reported THRIVE Score: 0 MADISON-7 AMB Questionnaire MADISON-7 Date MADISON - 7 assessed: 10/03/24 Source: Developed by Drs. Dennis Cotton, Laura Kang, Elijah Cox and colleagues, with an educational zunilda from [employer]. Review of Systems Const Denies body aches, Denies chills, Denies fever(s), Denies headache(s) and Denies poor appetite Eyes Reports no additional complaints ENT Denies dysphagia, Denies dizziness, Denies headache(s) and Denies odynophagia Card Denies chest pain, Denies syncope, Denies edema, Denies irregular heart rhythm, Denies lightheadedness and Denies dyspnea Resp Denies cough and Denies dyspnea GI Denies abdominal pain, Denies constipation, Denies dysphagia, Denies diarrhea, Denies nausea, Denies odynophagia and Denies vomiting Reports no additional complaints Musc Reports no additional complaints and Denies abnormal gait Skin/Breast Reports system reviewed and no additional complaints, except as documented Neuro Denies abnormal gait, Denies dizziness, Denies syncope and Denies headache(s) Psych Reports no additional complaints Physical exam (Primary Care) Vital Signs: Last Vital Signs Temp 97.1 F 03/19/25 08:58 Pulse 84 03/19/25 08:58 BP 110/64 03/19/25 08:58 Pulse Ox 97 03/19/25 08:58 Oxygen Delivery Method Room Air 03/19/25 08:58 BMI result Body Mass Index 22.8 Tobacco/Smoking Status: Tobacco use Status Tobacco use date assessed 03/19/25 03/19/25 09:05 Patient Tobacco Use Status Never used Tobacco 03/19/25 09:05 e-Cigarette/Vaping Use Never Used 03/19/25 09:05 Thrive Assessment: Date of Thrive Assessment Date Thrive assessed 10/03/24 03/19/25 09:05 Currently or been in a relationship where the following occur: No concerns reported Const General: cooperative, healthy appearing, comfortable and no acute distress Orientation/consciousness: patient oriented x3 HENMT Head: Yes normocephalic Ears: hearing grossly normal bilaterally General nose exam: Normal external nose present Eyes General: appearance normal, both eyes and all related structures Conjunctivae: conjunctivae normal Neck Neck: Yes full ROM and Yes no lymphadenopathy Resp Effort & Inspection: normal respiratory effort Auscultation: clear to auscultation bilaterally, no crackles, no rales, no rhonchi and no wheezes Cardio Rate: regular rate Rhythm: regular rhythm Skin General skin exam: no rashes or lesions noted Full body images: 2 1. tick bite with surrounding erythema Neuro General: patient oriented x3 Gait exam (Neuro): Normal gait present Extrem General: Yes normal to inspection, Yes full ROM and No edema Psych Affect: normal affect Attitude: cooperative Insight: Good insight present (Psych) Judgement: Good judgement present (Psych) Coding Level of Care Code Est Pt Level 3 (61700) Diagnoses ADHD F90.9 Hypercholesterolemia E78.00 GERD (gastroesophageal reflux disease) K21.9 Tick bite W57.XXXA Hypersomnolence G47.10 Anxiety F41.9 Assessment & Plan Assessment & Plan (1) ADHD: Code(s): F90.9 - Attention-deficit hyperactivity disorder, unspecified type Category: Medical Plan: She did not do well on the Straterra and is not interested in trying any other medications at this time. She will follow up with the outpatient psych clinic. (2) Hypercholesterolemia: Code(s): E78.00 - Pure hypercholesterolemia, unspecified Category: Medical Plan: Avoid foods that are high in cholesterol such as red meat, fried foods, eggs and baked goods. Triglyceride goal of less than 150 and LDL goal of less than 130. Reminded about blood work. (3) GERD (gastroesophageal reflux disease): Code(s): K21.9 - Gastro-esophageal reflux disease without esophagitis Category: Medical Plan: Avoid trigger foods such as citrus, tomato products, soda, caffeine, spicy foods and other foods that may be irritating to your stomach. Avoid laying flat 3-4 hours after eating and elevate the head of the bed 30 degrees to prevent acid from moving into the esophagus. (4) Tick bite: Code(s): W57.XXXA - Bitten or stung by nonvenomous insect and other nonvenomous arthropods, initial encounter Category: Medical Plan: The patient was advised to take a prophylactic dose of doxycycline to prevent Lyme disease, as the tick was removed within 72 hours. The tick's head was successfully removed, and the patient was instructed to monitor for any signs of infection or rash. (5) Hypersomnolence: Code(s): G47.10 - Hypersomnia, unspecified Category: Medical Plan: PLan for home sleep study as recommended by her dentist. Cortisol ordered as well at patient request. (6) Anxiety: Code(s): F41.9 - Anxiety disorder, unspecified Category: Medical Plan: She is currently seeing a family counselor and is waiting for appointment from the outpatient psych clinic. Message was sent to their office today as well. Plan This note was constructed using voice recognition software. While every effort has been made to ensure accuracy and ct technologist, still areas may have been included sometimes these areas may affect the content or meeting of the given symptoms. Total time spent caring for the patient today was 20 minutes. This includes time spent before the visit reviewing the chart, time spent during the visit, and time spent after the visit and documentation. Patient was informed and verbally consented to the use of an ambient scribe for clinic note documentation during this visit. Orders: Orders 2 Cortisol Random Today R53.83 - Other fatigue RT home sleep study Today G47.10 - Hypersomnia, unspecified Medications: New 2 doxycycline hyclate 200 mg (2 x 100 mg) PO ONCE 2 caps 0RF
[2025-03-19 08:58] VITALS: BP 110/64; PULSE 84; TEMP 36.2; O2SAT 97; BMI 22.8
--- OUTSIDE RECORDS SUMMARY | 2025-03-19 09:59 | XMS_ITS | Clinical Summary ---
Author Organization [facility] Address [address] [place] [address] Phone Care Team Providers Care Emergency Worker Name Role Phone Ele Kaiser MD Unavailable [phone] Mirta Cerda NP Unavailable Kem Lai MD Unavailable [phone] Diamante Degroot MD Primary Care Provider Allergies Active Allergy Reactions Criticality Noted Date Comments Latex, Natural Rubber Dermatitis 09/11/2024 Medications clobetasol (TEMOVATE) 0.05 % ointment APPLY A THIN LAYER TO THE AFFECTED AREA(S) BY TOPICAL ROUTE 2 TIMES PER WEEK. Active predniSONE (DELTASONE) 20 MG tablet 40 mg by oral route. Active Active Problems No known active problems Social History Tobacco Use Types Packs/Day Years Used Date Smoking Tobacco: Never Assessed Education Answer Date Recorded Are you interested in more education? Not on nuris e 05/16/2024 Are you concerned about learning? Not on file 05/16/2024 No 05/16/2024 No 05/16/2024 Digital Access Answer Date Recorded No 05/16/2024 No 05/16/2024 Reliable internet access at home? Not on file 05/16/2024 Device with a working camera? Not on file Comments Unknown Sex and Gender Information Value Date Recorded Sex Assigned at Not on file Legal Sex Female 9:11 PM EDT Gender Identity Not on file Sexual Orientation Not on file Last Filed Vital Signs Vital Sign Reading Time Taken Comments Blood Pressure 109/62 09/11/2024 9:00 AM EDT Pulse 84 09/11/2024 9:00 AM EDT Temperature 36.6 C (97.9 F) 09/11/2024 9:00 AM EDT Respiratory Rate 16 09/11/2024 9:00 AM EDT Oxygen Saturation 100% 09/11/2024 9:00 AM EDT Inhaled Oxygen Concentration - - Weight 65.8 kg (145 lb) 09/11/2024 9:00 AM EDT Height 175.3 cm (5' 9 ) 09/11/2024 9:00 AM EDT Body Mass Index 21.41 09/11/2024 9:00 AM EDT Plan of Treatment Health Maintenance Due Date Last Done Comments Adult Td,Tdap Booster 1986 DEPRESSION SCREENING 1998 SMOKING Hx and SMOKELESS TOB ACCO SCREENING 10/28/1999 HEPATITIS C SCREENING 2004 HIV ONE-TIME SCREENING (18-6 5 YEARS) 2004 PAP SMEAR 10/28/2007 INFLUENZA VACCINE (#1) 2024 COVID-19 VACCINE ( - 2024-2 6 season) 2025 HEPATITIS A VACCINES Aged Out No long er eligible based on patient's age to complete this topic HIB VACCINES Aged Out No longer eligi ble based on patient's age to complete this topic MENINGOCOCCAL VACCINES (ACWY) Aged Out No longer eligible based on patient's age to complete this topic MENINGOCOCCAL VACCINES (B) Aged Out N o longer eligible based on patient's age to complete this topic PNEUMOCOCCAL VACCINES (0-49 years) Aged Out No longer eligible based on patient's age to complete this topic Medical Devices Not on file Insurance [facility] [place] [address] [place] [address] [employer] [facility] [place] [address] [place] [address] [employer] [facility] Care Teams Emergency Worker Relationship Specialty Start Date End Date Diamante Degroot MD [address] [facility], [address] [address] PCP - General Internal Medicine 09/11/24 Ele Kaiser MD Historical LMR Provider 03/15/17 Mirta Cerda NP [address] [place] [address] Historical LMR Provider 03/15/17 Kem Lai MD [address] [place] [address] Historical LMR Provider 03/15/17 Additional Source Comments The information contained in this document represents components of the legal health record. It is not the complete legal health record.[facility]
--- OUTSIDE RECORDS SUMMARY | 2025-03-19 09:59 | XMS_ITS | Clinical Summary ---
Author Organization 175 [facility] Address [address] [place] [address] Phone Care Team Providers Care Optometry Teacher Name Role Phone Halle Grimaldo Primary Care Provider [phone] Allergies No known active allergies Social History Tobacco Use Types Packs/Day Years [...] Cervical Cancer Screening: P ap Smear 10/28/2007 HPV Vaccines (1 - 3-dose SCD M series) 2013 Depression Screening 05/31/2024 HIV Screening 10/12/2024 Hepatitis C Screening 10/12/2024 Social Influencers of Health Screening 10/12/2024 COVID-19 Vaccine (1 - 2023-2 5 season) 2025 Influenza Vaccine (#1) 2025 RSV Immunization Adult Patie nts (1 - 1-dose 75+ series) 2061 HIB Vaccines Aged Out No longer eligi [...] patient's age to complete this topic Insurance [facility] [place] [address] Care Teams Optometry Teacher Relationship Specialty Start Date End Date Halle Grimaldo PA [address] [place] [address], [address] [place] [address] PCP - General 10/12/24
== END 2025-03-19 09:45 | disposition home or self-care (01) ==
LOC: HO.HMCH 08:54
DX: F90.9 Attention-deficit hyperactivity disorder, unspecified type (principal); E78.00 Pure hypercholesterolemia, unspecified; K21.9 Gastro-esophageal reflux disease without esophagitis; W57.XXXA Bitten or stung by nonvenomous insect and other nonvenomous arthropods, initial encounter; G47.10 Hypersomnia, unspecified; F41.9 Anxiety disorder, unspecified

== ENCOUNTER → 2025-03-19 08:53 | Outpatient (BNVA) | payer OTHER, SELFPAY | DX: F90.9 Attention-deficit hyperactivity disorder, unspecified type (principal); E78.00 Pure hypercholesterolemia, unspecified; K21.9 Gastro-esophageal reflux disease without esophagitis; G47.10 Hypersomnia, unspecified; F41.9 Anxiety disorder, unspecified; S80.869A Insect bite (nonvenomous), unspecified lower leg, initial encounter; W57.XXXA Bitten or stung by nonvenomous insect and other nonvenomous arthropods, initial encounter; Y93.9 Activity, unspecified; Y92.9 Unspecified place or not applicable; Y99.9 Unspecified external cause status | CPT/HCPCS: 99212 ==

== ENCOUNTER 2025-03-22 06:27 | Outpatient (REF) | payer OTHER, SELFPAY ==
--- OUTSIDE RECORDS SUMMARY | 2018-08-05 04:00 | XMS_ITS | Continuity of Care Document ---
Author Organization [facility] Address [address] [place] [address] Phone Care Team Providers Care Food Assembler Name Role Phone Unavailable Unavailable Unavailable Advance Directives Directive Yes / No Effective Date File Name No Information Encounters Encounter Description Practice Location Reason(s) For Visit Diagnoses Date Provider Providers Copied on Encounter [facility], [address], [place], [place], [id number], [place] tel:[phone] [facility] No Information Jul-0 201 9 No Information Referring Provider: EDDIE FRANK, [address], [place], [address]. tel:[phone] Family History Family Member Type Diagnosis Age At Onset No Information Payers Payer name Insurance type Covered republican ID Authoriza titiffany(s) [facility] PPO [id number] Social History Type Description Quantity Date Captured Comments Sex Female Smoking Status No Information Chief Complaint And Reason For Visit No Information History Of Present Illness Encounter Date Complaint History Of Prese nt Illness No Information Instructions Date Instruction Additional Infor mation No Information Assessments Type Assessment Date No Information
--- OUTSIDE RECORDS SUMMARY | 2025-03-22 06:30 | XMS_ITS | Clinical Summary ---
Author Organization [address] [facility] Address [address] [place] [address] Phone Care Team Providers Care Rate Examiner Name Role Phone Halle Grimaldo Primary Care Provider [phone] Allergies No known active allergies Social History [...] patient's age to complete this topic Insurance [facility] [employer] Care Teams Rate Examiner Relationship Specialty Start Date End Date Halle Grimaldo PA [address] [place] [address], [address] [place] [address] PCP - General 10/12/24
--- OUTSIDE RECORDS SUMMARY | 2025-03-22 06:30 | XMS_ITS | Clinical Summary ---
Author Organization [facility] Address [address] [place] [address] Phone Care Team Providers Care Detailer Name Role Phone Ele Kaiser MD Unavailable [phone] Mirta Cerda NP Unavailable [phone] Kem Lai MD Unavailable [phone] Diamante Degroot MD Primary Care Provider [...] topic Medical Devices Not on file Insurance [facility] [place] [address] [place] [address] ACO [facility] [place] [address] [place] [address] ACO [facility] ACO [facility] ACO Care Teams Detailer Relationship Specialty Start Date End Date Diamante Degroot MD 22 [facility], [address] [address] PCP - General Internal Medicine 09/11/24 Ele Kaiser MD Historical LMR Provider 03/15/17 Mirta Cerda NP [address] [place] [address] Historical LMR Provider 03/15/17 Kem Lai MD [address] [place] [address] Historical LMR Provider 03/15/17 Additional Source Comments The information contained in this document represents components of the legal health record. It is not the complete legal health record.[facility]
[2025-03-22 08:08] LABS: Cholesterol 222 mg/dL (<200); HDL Cholesterol 59 mg/dL (>40); Triglycerides 70 mg/dL (<150)
== END 2025-03-22 06:28 | disposition home or self-care (01) ==
LOC: HO.LAB 06:27
DX: E78.00 Pure hypercholesterolemia, unspecified (principal); R53.83 Other fatigue
CPT/HCPCS: 36415; 80061; 82533

== ENCOUNTER 2025-04-06 09:03 | Outpatient (REF) | payer OTHER, SELFPAY ==
--- OUTSIDE RECORDS SUMMARY | 2025-04-02 09:10 | XMS_ITS | Encounter Summary ---
Author Organization [facility] Address [address] [facility] [address] [place] [address] Phone Care Team Providers Care Foundation Drill Operator Name Role Phone Ele Kaiser MD Unavailable [phone] Mirta Cerda NP Unavailable Kem Lai MD Unavailable [phone] Halle Grimaldo Primary Care Provide r Reason for Visit * Reason Comments Sore Throat Started yesterday, w bhavya today. Patient states she is concerned about strep, she reports mild body aches, denies nasal congestion and cough. She did not want a respiratory swab at this moment. Encounter Details Date Type Department Care Team (Late st Contact Info) Description 04/02/2025 9:10 AM EST Office Visit [facility] at [address] [address] Wendy Taylor, ETHAN [address] [place] [address] [email or web address] Sore throat (Primary Dx) Social History Tobacco Use Types Packs/Day Years [...] on file Sexual Orientation Not on file documented as of this encounter Last Filed Vital Signs Vital Sign Reading Time Taken Comments Blood Pressure 115/74 04/02/2025 10:14 AM EST Pulse 88 04/02/2025 10:14 AM EST Temperature 36.9 C (98.4 F) 04/02/2025 10:14 AM EST Respiratory Rate 18 04/02/2025 10:1 4 AM EST Oxygen Saturation 100% 04/02/2025 10: 14 AM EST Inhaled Oxygen Concentration - - Weight 68 kg (150 lb) 04/02/2025 10:14 AM EST patient reported Height 175.3 cm (5' 9 ) 04/02/2025 10:1 4 AM EST patient reported Body Mass Index 22.15 04/02/2025 10:14 AM EST documented in this encounter Progress Notes * Wendy Taylor, ASSEMBLY PERSON - 04/02/2025 9:10 AM EST Images from the original note were not included. Subjective: Patient ID: Alyssa Fitzgerald is a 39 y.o. female. 39-year-old female presents with sore throat that began yesterday and is worse today. Patient notesthat she has some laryngitis but her son had 3 hockey games and she thought initially it might be related to screaming at the games. Patient does endorse some mild bodyaches but denies any other URI symptoms. No one at home is currently ill. Review of Systems Constitutional: Negative for appetite change, chills, diaphoresis, fatigue and fever. HENT: Positive for sore throat. Negative for congestion, drooling, ear pain, mouth sores, postnasaldrip, rhinorrhea, sinus pressure and trouble swallowing. Voice change: laryngitis. Respiratory: Negative for cough and shortness of breath. Gastrointestinal: Negative for nausea. Skin: Negative for persistent rash. Vitals: 04/02/25 1014 BP: 115/74 Pulse: 88 Resp: 18 Temp: 36.9 ??C (98.4 ??F) TempSrc: Oral SpO2: 100% Weight: 68 kg (150 lb) Height: 175.3 cm (5' 9 ) Objective: Physical Exam Vitals and nursing note reviewed. Constitutional: General: She is not in acute distress. Appearance: She is well-developed and normal weight. She is not ill-appearing, toxic-appearing or diaphoretic. HENT: Head: Normocephalic and atraumatic. Comments: Wearing facial mask, removed briefly for exam Right Ear: Tympanic membrane and ear canal normal. No drainage, swelling or tenderness. No middle ear effusion. Tympanic membrane is not erythematous. Left Ear: Tympanic membrane and ear canal normal. No drainage, swelling or tenderness. No middle ear effusion. Tympanic membrane is not erythematous. Nose: Congestion present. No rhinorrhea. Mouth/Throat: Mouth: Mucous membranes are moist. No oral lesions. Pharynx: Oropharynx is clear. Uvula midline. No pharyngeal swelling, oropharyngeal exudate, posterior oropharyngeal erythema or uvula swelling. Tonsils: No tonsillar exudate or tonsillar abscesses. 1+ on the right. 1+ on the left. Neck: Thyroid: No thyromegaly. Cardiovascular: Rate and Rhythm: Normal rate and regular rhythm. Heart sounds: Normal heart sounds. No murmur heard. No friction rub. No gallop. Pulmonary: Effort: Pulmonary effort is normal. No respiratory distress. Breath sounds: Normal breath sounds. No stridor. No wheezing, rhonchi or rales. Musculoskeletal: Cervical back: Normal range of motion and neck supple. Lymphadenopathy: Cervical: No cervical adenopathy. Skin: General: Skin is warm and dry. Capillary Refill: Capillary refill takes less than 2 seconds. Neurological: General: No focal deficit present. Mental Status: She is alert and oriented to person, place, and time. Psychiatric: Mood and Affect: Mood normal. Behavior: Behavior normal. Results for orders placed or performed in visit on 04/02/25 POCT Group A Streptococcus, PCR Result Value Ref Range Strep A, PCR Not Detected Not Detected Procedure: Procedures Assessment/Plan: Diagnosis Plan 1. Sore throat Assessment and Plan: 39-year-old female who is not COVID or influenza vaccinated presents with sore throat beginning yesterday worse today Notes some laryngitis which she thinks was from yelling out. Son's hockey games No fever, chills or sweats. Does endorse some mild myalgias On exam no evidence for pharyngeal abscess or epiglottitis No evidence for deep neck space infection Strep testing (-) Initially patient deferred 4 Plex testing-she does have her in-laws coming this weekend so she decided she would like to have the 4 Plex testing-she is discharged prior to results and aware provider will call with results if positive only documented in this encounter Plan of Treatment Not on file documented as of this encounter Procedures Procedure Name Priority Date/Time Associated Diagnosis Comments POCT SARS-COV-2, INFLUENZA A/B, RSV, PCR Routine 04/02/2025 10:48 AM EST POCT GROUP A STREPTOCOCCUS, PCR Routine 04/02/2025 10:14 AM EST documented in this encounter Results * POCT SARS-CoV-2, Influenza A/B, RSV, PCR (04/02/2025 10:48 AM EST) [facility] SARS-Cov-2 PCR Negative Negative 04/02/2025 11:29 AM EST [facility] Influenza A Negative Negative 04/02/2025 11:29 AM EST [facility] Influenza B Negative Negative 04/02/2025 11:29 AM EST [facility] RSV PCR Negative Negative 04/02/2025 11:29 AM EST [facility] Swab 04/02/2025 10:4 8 AM EST 04/02/2025 11:29 AM EST Wendy Taylor CNP LAB POCT DOCKED DEVICE UNSO LICTED RESULTS Final Result [facility] [place] [address], [facility] [phone] * POCT Group A Streptococcus, PCR (04/02/2025 10:14 AM EST) Strep A, PCR Not Detected Not Detected 04/02/20 10:42 AM EST [facility] Swab (Throat) 04/02/2025 10: 14 AM EST 04/02/2025 10:42 AM EST us Wendy Taylor ASSEMBLY PERSON LAB POCT DOCKED DEVICE UNSO LICTED RESULTS Final Result [facility] [address] [address], [facility] [phone] documented in this encounter Visit Diagnoses Diagnosis Sore throat- Primary Acute pharyngitis documented in this encounter Care Teams Foundation Drill Operator Relationship Specialty Start Date End Date Halle Grimaldo PA [address] [place] [address] [place] [address] PCP - General Physician Full Time Staff Interpreter 04/02/25 Ele Kaiser MD Historical LMR Provider 03/15/17 Mirta Cerda NP [address] [place] [address] Historical LMR Provider 03/15/17 Kem Lai MD [address] [place] [address], [address] [place] [address] [email or web address] Historical LMR Provider 03/15/17 documented as of this encounter Additional Source Comments The information contained in this document represents components of the legal health record. It is not the complete legal health record.[facility]
--- OUTSIDE RECORDS SUMMARY | 2025-04-06 10:06 | XMS_ITS | Clinical Summary ---
Author Organization [facility] Address [address] [address] Phone Care Team Providers Care Sight Mounter Name Role Phone Ele Kaiser MD Unavailable [phone] Mirta Cerda NP Unavailable [phone] Kem Lai MD Unavailable [phone] Halle Grimaldo Primary Care Provide r Allergies Active Allergy Reactions Criticality Noted Date Comments Latex, Natural Rubber Dermatitis 09/11/2024 Medications clobetasol (TEMOVATE) 0.05 % ointment APPLY A THIN LAYER TO THE AFFECTED AREA(S) BY TOPICAL ROUTE 2 TIMES PER WEEK. Active predniSONE (DELTASONE) 20 MG tablet 40 mg by oral route. 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 Overview (04/02/2025): - has gone to PT once and is waiting for insurance benefits Encounters Date Type Department Care Team Description 04/02/2025 9:10 AM EST Office Visit [facility] at [address] [address] Wendy Taylor, ETHAN Sore throat (Primary Dx) from Last 3 Months Immunizations No known immunizations Social History Tobacco Use Types Packs/Day Years [...] Mass Index 22.15 04/02/2025 10:14 AM EST Plan of Treatment Health Maintenance Due Date Last Done Comments Adult Td,Tdap Booster 1986 DEPRESSION SCREENING 1998 SMOKING Hx and SMOKELESS TOB ACCO SCREENING 10/28/1999 HEPATITIS C SCREENING 2004 HIV ONE-TIME SCREENING (18-6 5 YEARS) 2004 PAP SMEAR 10/28/2007 INFLUENZA VACCINE (#1) 2024 COVID-19 VACCINE (2024-2 6 season) 2025 HEPATITIS A VACCINES Aged [...] this topic Medical Devices Not on file Procedures Procedure Name Priority Date/Time Associated Diagnosis Comments POCT SARS-COV-2, INFLUENZA A/B, RSV, PCR Routine 04/02/2025 10:48 AM EST POCT GROUP A STREPTOCOCCUS, PCR Routine 04/02/2025 10:14 AM EST from Last 3 Months Results * POCT SARS-CoV-2, Influenza A/B, RSV, PCR (04/02/2025 10:48 AM EST) [facility] SARS-Cov-2 PCR Negative Negative 04/02/2025 11:29 AM EST [facility] Influenza A Negative Negative 04/02/2025 11:29 AM EST [facility] Influenza B Negative Negative 04/02/2025 11:29 AM EST [facility] RSV PCR Negative Negative 04/02/2025 11:29 AM EST [facility] Swab 04/02/2025 10:4 8 AM EST 04/02/2025 11:29 AM EST us Wendy Taylor PODIATRIC MEDICINE DOCTOR LAB POCT DOCKED DEVICE UNSO LICTED RESULTS Final Result [facility] [address] [address], [place] [phone] * POCT Group A Streptococcus, PCR (04/02/2025 10:14 AM EST) Strep A, PCR Not Detected Not Detected 04/02/20 10:42 AM EST [facility] Swab (Throat) 04/02/2025 10: 14 AM EST 04/02/2025 10:42 AM EST Wendy Taylor PODIATRIC MEDICINE DOCTOR LAB POCT DOCKED DEVICE UNSO LICTED RESULTS Final Result [facility] [address] [address], [place] [phone] from Last 3 Months Additional Health Concerns Infection Onset Date Last Indicated Resp-Risk 04/02/2025 04/02/2025 Insurance [facility] [place] [address] [place] [address] ACO [facility] [place] [address] [place] [address] ACO [facility] ACO Care Teams Sight Mounter Relationship Specialty Start Date End Date Halle Grimaldo PA [address] [place] [address] [place] [address] PCP - General Physician Wall Scraper 04/02/25 Ele Kaiser MD Historical LMR Provider 03/15/17 Mirta Cerda NP [address] [place] [address] Historical LMR Provider 03/15/17 Kem Lai MD [address] [place] [address], [place] [address] [email or web address] Historical LMR Provider 03/15/17 Additional Source Comments The information contained in this document represents components of the legal health record. It is not the complete legal health record.[facility]
--- OUTSIDE RECORDS SUMMARY | 2025-04-06 10:06 | XMS_ITS | Clinical Summary ---
Author Organization [facility] Address [address] [place] [address] Phone Care Team Providers Care Commercial Real Estate Agent Name Role Phone Halle Grimaldo Primary Care Provider [phone] Allergies No known active allergies Social History [...] patient's age to complete this topic Insurance [facility] Care Teams Commercial Real Estate Agent Relationship Specialty Start Date End Date Halle Grimaldo PA [address] [place] [address], [address] [place] [address] PCP - General 10/12/24
[2025-04-07 07:03] LABS: Lyme Abs Screen <0.90 index
== END 2025-04-06 09:04 | disposition home or self-care (01) ==
LOC: HO.LAB 09:03
DX: Z01.84 Encounter for antibody response examination (principal); W57.XXXA Bitten or stung by nonvenomous insect and other nonvenomous arthropods, initial encounter
CPT/HCPCS: 36415; 86617; 86618

== ENCOUNTER 2025-04-24 08:55 | Outpatient (REF) | payer OTHER, SELFPAY ==
--- OUTSIDE RECORDS SUMMARY | 2018-08-05 03:00 | XMS_ITS | Continuity of Care Document ---
Author Organization [facility] Address [address] [place] [address] Phone Care Team Providers Care Certified Substance Abuse Counselor Name Role Phone Unavailable Unavailable Unavailable Advance Directives Directive Yes / No Effective Date File Name No Information Encounters Encounter Description Practice Location Reason(s) For Visit Diagnoses Date Provider Providers Copied on Encounter [facility], [address], [place], [place], [id number], [place] tel:[phone] [facility] No Information Jul-0 201 9 No Information Referring Provider: EDDIE FRANK, [address], [place], [address]. tel:[phone] Family History Family Member Type Diagnosis Age At Onset No Information Payers Payer name Insurance type Covered democrat ID Authoriza titiffany(s) [facility] PPO [id number] Social History Type Description Quantity Date Captured Comments Sex Female Smoking Status No Information Chief Complaint And Reason For Visit No Information History Of Present Illness Encounter Date Complaint History Of Prese nt Illness No Information Instructions Date Instruction Additional Infor mation No Information Assessments Type Assessment Date No Information
--- NOTE | ~2025-04-24 | XR_ITS ---
EXAMINATION: XR CHEST CLINICAL INFORMATION: R05.9 - Cough, unspecified COMPARISON: None available. TECHNIQUE: 2 views of the chest were obtained. FINDINGS: No significant abnormality is noted involving the heart, lungs, mediastinum, bony thorax or soft tissues. XR/XR chest 2V IMPRESSION: Unremarkable examination. Electronically signed by: Rosa Maria Swift MD 04/24/2025 09:29 AM [facility]
--- OUTSIDE RECORDS SUMMARY | 2025-04-24 09:27 | XMS_ITS | Clinical Summary ---
Author Organization [facility] Address [address] [place] [address] Phone Care Team Providers Care Manager Van Name Role Phone Halle Grimaldo Primary Care Provider [phone] Allergies No known active allergies Social History [...] Influencers of Health Screening 10/12/2024 COVID-19 Vaccine ( - 2024-2 6 season) 2025 Influenza Vaccine (#1) 2025 RSV [...] patient's age to complete this topic Insurance [facility] [address] Care Teams Manager Van Relationship Specialty Start Date End Date Halle Grimaldo PA [address] [place] [address], [address] [place] [address] PCP - General 10/12/24
--- OUTSIDE RECORDS SUMMARY | 2025-04-24 09:27 | XMS_ITS | Clinical Summary ---
Author Organization [facility] Address [address] [address] Phone Care Team Providers Care Camp Cook Name Role Phone Ele Kaiser MD Unavailable [phone] Mirta Cerda NP Unavailable [phone] Kem Lai MD Unavailable [phone] Halle Grimaldo Primary Care Provide r [...] Office Visit [facility] at [address] [address] Wendy Taylor, ETHAN Sore throat (Primary Dx) [...] A/B, RSV, PCR (04/02/2025 10:48 AM EST) [facility] SARS-Cov-2 PCR Negative Negative 04/02/2025 11:29 AM EST [facility] Influenza A Negative Negative 04/02/2025 11:29 AM EST [facility] Influenza B Negative Negative 04/02/2025 11:29 AM EST [facility] RSV PCR Negative Negative 04/02/2025 11:29 AM EST [facility] Swab 04/02/2025 10:4 8 AM EST 04/02/2025 11:29 AM EST us Wendy Taylor CYLINDER CHECKER LAB POCT DOCKED DEVICE UNSO LICTED RESULTS Final Result [facility] [address] [address], [facility] [phone] * POCT Group A Streptococcus, PCR (04/02/2025 10:14 AM EST) Strep A, PCR Not Detected Not Detected 04/02/20 10:42 AM EST [facility] Swab (Throat) 04/02/2025 10: 14 AM EST 04/02/2025 10:42 AM EST Wendy Taylor CYLINDER CHECKER LAB POCT DOCKED DEVICE UNSO LICTED RESULTS Final Result [facility] [address] [address], [facility] [phone] from Last [address] [place] [address] [place] [address] [place] [address] [place] [place] [address] ACO [facility] ACO [facility] ACO Care Teams Camp Cook Relationship Specialty Start Date End Date Halle Grimaldo PA [address] [place] [address] [place] [address] PCP - General Physician Endless Steamer Tender 04/02/25 Ele Kaiser MD Historical LMR Provider 03/15/17 Mirta Cerda NP [address] [place] [address] Historical LMR Provider 03/15/17 Kem Lai MD 22 [facility], [address] [address] [email or web address] Historical LMR Provider 03/15/17 Additional Source Comments The information contained in this document represents components of the legal health record. It is not the complete legal health record.[facility]
== END 2025-04-24 08:56 | disposition home or self-care (01) ==
LOC: HO.XRAY 08:55
DX: R05.9 Cough, unspecified (principal); R10.9 Unspecified abdominal pain; R14.0 Abdominal distension (gaseous)
CPT/HCPCS: 71046; 87177; 87209; 87338

== ENCOUNTER → 2025-04-24 09:10 | Outpatient (BNV) | payer OTHER, SELFPAY | PROVIDERS: Visit Provider Radiology Diagnostic Radiology | DX: R05.9 Cough, unspecified (principal) | CPT/HCPCS: 71046 ==